=== PATIENT | male | born 1960 | race Caucasian/White ===

== ENCOUNTER 2019-07-17 16:03 | Inpatient (IN) | payer OTHER ==
[~2019-07-17] VITALS: Ht 172.7 cm; Wt 90.5 kg
[2019-07-17 16:26] LABS: BASOPHILS 0.1 % (0-2); EOSINOPHILS 0 % (0-7); HEMATOCRIT 48.5 % (42.0-54.0); HEMOGLOBIN 16.2 g/dL (13.5-17.5); IMMATURE GRANULOCYTES 0.3 % (0-5); LYMPHOCYTES 3.1 % (15-50); MCH 27.9 pg (26.0-34.0); MCHC 33.4 g/dL (31.0-37.0); MCV 83.5 fL (80.0-100.0); MEAN PLATELET VOLUME 8.1 fL (7.4-10.4); MONOCYTES 2.5 % (2-11); PLATELET COUNT 228 10x3/uL (130-400); RBC 5.81 10x6/uL (4.20-6.10); RDW 13.9 % (11.5-14.5); WBC 13.9 10x3/uL (4.8-10.8)
[2019-07-17 16:34] LABS: CALC OSMOLALITY 271 mosm/kg (275-300); CARBON DIOXIDE 26.9 mmol/L (21.0-32.0); CHLORIDE - SERUM 99 mmol/L (98-107); CREATININE - SERUM 0.7 mg/dL (0.6-1.3); GLUCOSE 151 mg/dL (74-106); POTASSIUM - SERUM 4.1 mmol/L (3.5-5.1); SODIUM 134 mmol/L (136-145); UREA NITROGEN 15 mg/dL (7-18); eGFR NON AFRICAN AMERICAN > 90 mL/min (90-120)
[2019-07-17 16:40] LABS: INR 2.79 (0.85-1.17); PROTIME 28.9 SECONDS (11.6-15.0)
[2019-07-17 16:49] LABS: ALBUMIN 3.4 g/dL (3.4-5.0); ALKALINE PHOSPHATASE 76 U/L (30-120); ALT (SGPT) 161 U/L (10-68); AMYLASE - SERUM 53 U/L (25-115); BILIRUBIN - TOTAL 0.49 mg/dL (0.2-1.3); CREATINE KINASE 53 UL (21-232); LIPASE 220 U/L (73-393); PROTEIN - SERUM 7.5 g/dL (6.4-8.2)
[2019-07-17 16:50] LABS: TROPONIN-I < 0.017 ng/mL (0.000-0.060)
[2019-07-17 17:37] LABS: BILIRUBIN NEGATIVE (NEGATIVE); GLUCOSE NEGATIVE (NEGATIVE); KETONE NEGATIVE (NEGATIVE); NITRITE NEGATIVE (NEGATIVE); UROBILINOGEN NORMAL (NORMAL)
[2019-07-17 17:45] LABS: UDS - AMPHET NEGATIVE QUAL (NEGATIVE); UDS - BARB NEGATIVE QUAL (NEGATIVE); UDS - BENZO NEGATIVE QUAL (NEGATIVE); UDS - COCAINE NEGATIVE QUAL (NEGATIVE); UDS - OPIATE POSITIVE QUAL (NEGATIVE); UDS - PCP NEGATIVE QUAL (NEGATIVE); UDS - THC NEGATIVE QUAL (NEGATIVE)
--- NOTE | 2019-07-17 19:10 | NUR ---
PT AMBULATED TO RESTROOM, NO S/S OF ACUTE DISTRESS NOTED.
[2019-07-17 21:49] VITALS: BP 196/100; BMI 26.6
--- NOTE | 2019-07-17 21:58 | NUR ---
PT ARRIVED ON UNIT VIA WHEELCHAIR ESCORTED BY ER NURSE. POSITIONED IN BED FOR COMFORT AND ORIENTED TO ROOM AND CALL LIGHT. STARTED IV FLUIDS PER ORDER. GAVE MORPHINE 4 MG IVP AND ZOFRAN 4 MG IVP FOR C/O PAIN AND NAUSEA. GAVE ICE WATER AND CRANAPPLE JUICE. WILL MONITOR FOR NEEDS.
[2019-07-17 21:59] VITALS: BP 196/100
--- NOTE | 2019-07-17 21:59 | NUR ---
ADMISSION ASSESSMENT AND HISTORY COMPLETE. PT TAKES NO HOME MEDICATIONS.
[2019-07-18] VITALS (19 sets, daily range): BP systolic 98–198; BP diastolic 54–110; Ht 172.7 cm; Wt 90.5 kg
--- NOTE | 2019-07-18 01:19 | NUR ---
GAVE MORPHINE AND ZOFRAN IVP PER PT REQUEST FOR PAIN / NAUSEA, PER PRN ORDER.
--- NOTE | 2019-07-18 04:16 | NUR ---
PT YELLING AND MOANING LOUDLY...C/O SEVERE ABDOMINAL PAIN. GAVE MORPHINE EARLY TO TRY TO GET PT TO SETTLE DOWN AND KEEP FROM WAKING THE WHOLE UNIT WITH HIS YELLING. WILL MONITOR FOR EFFECTIVENESS.
[2019-07-18 06:10] LABS: BASOPHILS 0.1 % (0-2); EOSINOPHILS 0.3 % (0-7); HEMATOCRIT 49.7 % (42.0-54.0); HEMOGLOBIN 16.6 g/dL (13.5-17.5); IMMATURE GRANULOCYTES 0.3 % (0-5); LYMPHOCYTES 5.7 % (15-50); MCH 27.9 pg (26.0-34.0); MCHC 33.4 g/dL (31.0-37.0); MCV 83.4 fL (80.0-100.0); MEAN PLATELET VOLUME 8.4 fL (7.4-10.4); MONOCYTES 6.1 % (2-11); NEUTROPHILS 87.5 % (40-80); RBC 5.96 10x6/uL (4.20-6.10); RDW 13.9 % (11.5-14.5)
[2019-07-18 06:21] LABS: ALBUMIN 3.5 g/dL (3.4-5.0); ALKALINE PHOSPHATASE 81 U/L (30-120); ALT (SGPT) 146 U/L (10-68); AMYLASE - SERUM 62 U/L (25-115); BILIRUBIN - TOTAL 0.79 mg/dL (0.2-1.3); CALC OSMOLALITY 268 mosm/kg (275-300); CALCIUM 8.9 mg/dL (8.5-10.1); CARBON DIOXIDE 25.3 mmol/L (21.0-32.0); CHLORIDE - SERUM 97 mmol/L (98-107); CREATININE - SERUM 0.7 mg/dL (0.6-1.3); GLUCOSE 133 mg/dL (74-106); LIPASE 217 U/L (73-393); PROTEIN - SERUM 7.4 g/dL (6.4-8.2); SODIUM 133 mmol/L (136-145); UREA NITROGEN 14 mg/dL (7-18); eGFR NON AFRICAN AMERICAN > 90 mL/min (90-120)
[2019-07-18 06:35] LABS: PLATELET COUNT 278 10x3/uL (130-400)
--- NOTE | 2019-07-18 06:36 | NUR ---
PT JUST VOMITED ALL OVER HIS BATHROOM...FLOOR, TOILET AND WHITE...AT LEAST 500 ML OF BROWNISH EMESIS.
--- NOTE | 2019-07-18 11:43 | NUR ---
ASSESSMENT PER FLOW SHEET. PATIENT IS GOING TO OR FOR PROCEDURE,NPO. MEDS ORDERED.
--- NOTE | 2019-07-18 11:52 | NUR ---
CALL TO MOM PAULIE REBOLLAR,PHONE NUMBER [phone]. NO ANSWER. MESSAGE LEFT FOR HER TO CALL MED SURG UNIT.
--- NOTE | 2019-07-18 11:54 | NUR ---
LEFT UNIT VIA BED TO OR.
[2019-07-18 11:57] LABS: BACTERIA FEW /hpf (NEGATIVE); BILIRUBIN NEGATIVE (NEGATIVE); EPITHELIAL CELLS 0-5 /hpf (0-5); GLUCOSE NEGATIVE (NEGATIVE); KETONE SMALL mg/dL (NEGATIVE); NITRITE NEGATIVE (NEGATIVE); RED CELLS - URINE 0-5 /hpf (0-5); SPECIFIC GRAVITY 1.015 (1.005-1.020); UROBILINOGEN 8 mg/dL (NORMAL); WHITE CELLS - URINE RARE /hpf (NEGATIVE)
--- NOTE | 2019-07-18 14:35 | NUR ---
CALL BACK FROM MOM,SHE WANTS UPDATE AFTER SURGERY.INFORMED HER NUMBER ON FRONT OF CHART FOR PATIENT STATUS UPDATE
--- NOTE | 2019-07-18 18:41 | NUR ---
1531 RECEIVED FROM PACU WITH RENAN RN TO ROOM 2308 INITIATED POST OP FREQUENT VS
--- NOTE | 2019-07-18 19:30 | NUR ---
PT VOICES NEEDS, LUNGS CLEAR, LEFT IJ INTACT WITH NS @ 50 CC/HR, RIGHT WRIST A-LINE INTACT, ABDOMINAL INCISIONS X5 WITH KARSTEN DRAINS X2, KELLEY PATENT TO BSD, SCD'S TO BILAT LOWER LEGS, NO DISTRESS NOTED
--- NOTE | 2019-07-18 21:00 | NUR ---
PT RESTING QUIETLY WITH EYES CLOSED, VITALS STABLE
--- NOTE | 2019-07-18 23:35 | NUR ---
PT AWAKE EATING POPSICLE, NO DISTRESS, WILL CONT TO MONITOR
[2019-07-19] VITALS (23 sets, daily range): BP systolic 99–143; BP diastolic 55–85
--- NOTE | 2019-07-19 01:30 | NUR ---
PT REQUESTING WATER, GIVEN ICE CHIPS, INSTRUCTED TO GO SLOW WITH ICE CHIPS, VITALS STABLE
--- NOTE | 2019-07-19 03:30 | NUR ---
PT BATHED PER STAFF, TOLERATED WELL
[2019-07-19 04:25] LABS: BASOPHILS 0.1 % (0-2); EOSINOPHILS 0 % (0-7); HEMATOCRIT 48.2 % (42.0-54.0); HEMOGLOBIN 15.9 g/dL (13.5-17.5); IMMATURE GRANULOCYTES 0.1 % (0-5); LYMPHOCYTES 3.1 % (15-50); MCH 27.7 pg (26.0-34.0); MCV 84.1 fL (80.0-100.0); MEAN PLATELET VOLUME 8.7 fL (7.4-10.4); MONOCYTES 6.9 % (2-11); NEUTROPHILS 89.8 % (40-80); PLATELET COUNT 225 10x3/uL (130-400); RBC 5.73 10x6/uL (4.20-6.10); RDW 14.2 % (11.5-14.5)
[2019-07-19 04:43] LABS: ALKALINE PHOSPHATASE 47 U/L (30-120); BILIRUBIN - TOTAL 3.47 mg/dL (0.2-1.3); CALCIUM 7.6 mg/dL (8.5-10.1); CARBON DIOXIDE 24.5 mmol/L (21.0-32.0); CHLORIDE - SERUM 104 mmol/L (98-107); CREATININE - SERUM 0.8 mg/dL (0.6-1.3); GLUCOSE 121 mg/dL (74-106); POTASSIUM - SERUM 4.2 mmol/L (3.5-5.1); PROTEIN - SERUM 5.9 g/dL (6.4-8.2); SODIUM 136 mmol/L (136-145); eGFR NON AFRICAN AMERICAN > 90 mL/min (90-120)
[2019-07-19 04:45] LABS: ALBUMIN 2.4 g/dL (3.4-5.0); ALT (SGPT) 84 U/L (10-68); CALC OSMOLALITY 276 mosm/kg (275-300); UREA NITROGEN 24 mg/dL (7-18)
[2019-07-19 04:48] LABS: WBC 11.2 10x3/uL (4.8-10.8)
--- NOTE | 2019-07-19 07:54 | OP ---
PATIENT NAME: RUBEN REBOLLAR MEDICAL RECORD: [id number] :64 LOCATION:.[facility] D.2308 ADMISSION DATE:07/17/19 SURGEON: DEQUAN PAGAN MD DATE OF OPERATION: 07/18/2019 SURGEON: Dequan Pagan MD PREOPERATIVE DIAGNOSES: 1. Incarcerated ventral hernia. 2. 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 3. Hepatitis C. 4. History of alcoholism. POSTOPERATIVE DIAGNOSES: 1. Strangulated incarcerated ventral hernia. 2. Cirrhosis. 3. Hepatitis C. 4. History of alcoholism. 5. 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 ANESTHESIA: General. COMPLICATIONS: None. SPECIMENS: Small bowel resection. Case was grossly contaminated. ESTIMATED BLOOD LOSS: 50 cc. OPERATIVE COURSE: After consent was obtained, the patient was taken to the operating room and placed in supine position on the operating table. Next, general anesthesia was given via endotracheal intubation after a timeout was performed to confirm the correct patient and procedure. The abdomen was prepped and draped in typical sterile fashion. Ioban dressing was placed. Local anesthetic was injected in the left upper quadrant at Diaz's point. A 5-mm bladeless optical trocar was used and the abdomen entered under direct laparoscopic vision. Adequate pneumoperitoneum was achieved. No evidence of bowel injury. No evidence of bleeding. At this time, 3 additional trocars were placed, 12-mm trocar in to the left lateral position, 5-mm trocar in the left lower quadrant and 5-mm trocar in the upper midline. All instruments were placed under direct laparoscopic vision. There was a loop of incarcerated small bowel in the ventral hernia defect. A light gentle traction was reduced to reduce the hernia. Once the hernia was reduced, there was noted immediately was small bowel succuss noted from the mesenteric border of the small bowel loop, which was incarcerated in the hernia with signs of strangulated small bowel noted at the edges of the hernia. At this time, we decided to perform a laparoscopic small bowel resection. Enterotomies were made in the healthy portion of proximal and distal small bowel. A gmie-fz-hupk anastomosis was used with a 60 mm NEENA stapler using green load staple. The common enterotomy was then closed using a second fire of the 60 mm green load stapler after mesenteric window was created closing the common enterotomy. The mesentery was then taken with a single firing of the white load stapler. The 6 cm antrectomy specimen was placed in an EndoCatch bag and removed the 12-mm trocar and sent for permanent pathology. The mesenteric defect was closed using 3-0 Vicryl suture in a simple interrupted fashion. The staple line was reinforced using interrupted 3-0 Vicryl suture. At this time, the abdomen prior to reduction of OPERATIVE REPORT [id number] KETURAH,RUBEN the hernia 1500 cc of ascites were suctioned from the abdomen. After the small bowel resection was completed, the abdomen was copiously irrigated using 3 liters of warm normal saline. The ventral hernia defect was closed using three #1 Prolene sutures in a transfascial fashion using the Uzair-Travis suture passer, 2 KARSTEN drains were placed into the abdomen, one in the right pericolic gutter and one into the pelvis. The 12-mm trocar was removed and closed with an 0 Vicryl suture and a Uzair-Travis suture passer. At this time, again, the abdomen was copiously inspected. No evidence of bowel injury. No evidence of bleeding. At this time, all remaining instruments removed. The abdomen was desufflated. Remaining trocars were removed. Skin was closed with 4-0 Monocryl. KARSTEN drain secured using 2-0 nylon suture. At the end of the case, all needle and instrument counts were correct. No complications occurred. The patient was extubated and transferred to PACU in stable condition. TRANSINT:[id number] Voice Confirmation ID: [id number] DOCUMENT ID: [id number] DEQUAN PAGAN MD at 0754 CC: [id number] DICTATION DATE: 07/18/19 1445 WINDOWS TECHNICAL SPECIALIST: 07/18/19 213 ADM IN [facility] [address] [place] [address]
--- NOTE | 2019-07-19 18:54 | NUR ---
0700 BEDSIDE REPORT FROM OUTGOING INSECT CONTROL AIDE COMPLETE ASSISTED TO RECLINER CHAIR
--- NOTE | 2019-07-19 19:01 | NUR ---
0900 DR PAGAN ROUNDING ON PATIENT AND STRIPPING KARSTEN X 2 PT REMAINS UP IN RECLINER CHAIR VOICES NO COMPLAINT AT PRESENT
--- NOTE | 2019-07-19 19:02 | NUR ---
1300 PT PRESENT AND AMBULATED PATIENT IN ICU HALLS TOLERATED WELL
--- NOTE | 2019-07-19 19:03 | NUR ---
1144 C/O PAIN MORPHINE 4MG IV GIVEN
--- NOTE | 2019-07-19 19:04 | NUR ---
1500 AWAKE IN BED WATCHING TV
--- NOTE | 2019-07-19 19:04 | NUR ---
1542 C/O PAIN 11/09 MORPHINE 4MG IV GIVEN
--- NOTE | 2019-07-19 19:05 | NUR ---
1700 REQUESTED POPCICLE GIVEN ENRIQUE WELL DENIES NAUSEA
--- NOTE | 2019-07-19 19:07 | NUR ---
1900 BEDSIDE REPORT GIVEN TO ANNA PARK
--- NOTE | 2019-07-19 19:30 | NUR ---
PT RESTING QUIETLY, LEFT IJ CVL INTACT WITH NS @ 50 CC/HR, KELLEY CATHETER D/C'D, PT TOLERATED WELL, KARSTEN DRAINS X2 TO ABDOMEN INTACT AND COMPRESSED, VITALS STABLE
--- NOTE | 2019-07-19 22:00 | NUR ---
PT RESTING QUIETLY WITH EYES CLOSED, URINAL IN REACH
[2019-07-20] VITALS (9 sets, daily range): BP systolic 106–134; BP diastolic 63–75
--- NOTE | 2019-07-20 | NUR ---
PT SPILLED URINAL AND INCONTINENT OF URINE, BATHED AND LINEN CHANGED, PT STOOD AT BEDSIDE WITH MINIMAL ASSIST
--- NOTE | 2019-07-20 02:00 | NUR ---
PT SLEEPING WITH NO DISTRESS, VITALS STABLE
--- NOTE | 2019-07-20 04:00 | NUR ---
PT SLEEPING WITH NO DISTRESS, VITALS STABLE, KARSTEN DRAINS EMPTIED
[2019-07-20 04:23] LABS: BASOPHILS 0.1 % (0-2); EOSINOPHILS 0.1 % (0-7); HEMATOCRIT 43.1 % (42.0-54.0); HEMOGLOBIN 14.4 g/dL (13.5-17.5); IMMATURE GRANULOCYTES 0.4 % (0-5); LYMPHOCYTES 3.5 % (15-50); MCHC 33.4 g/dL (31.0-37.0); MCV 83.9 fL (80.0-100.0); MEAN PLATELET VOLUME 8.7 fL (7.4-10.4); MONOCYTES 8.9 % (2-11); PLATELET COUNT 214 10x3/uL (130-400); RBC 5.14 10x6/uL (4.20-6.10); RDW 14.4 % (11.5-14.5)
[2019-07-20 04:39] LABS: APTT 28.8 SECONDS (22.8-39.4); INR 1.05 (0.85-1.17); PROTIME 13.6 SECONDS (11.6-15.0)
[2019-07-20 04:44] LABS: WBC 8.1 10x3/uL (4.8-10.8)
[2019-07-20 05:31] LABS: ALBUMIN 2.1 g/dL (3.4-5.0); ALKALINE PHOSPHATASE 40 U/L (30-120); ALT (SGPT) 59 U/L (10-68); BILIRUBIN - TOTAL 1.87 mg/dL (0.2-1.3); CALC OSMOLALITY 270 mosm/kg (275-300); CARBON DIOXIDE 22.2 mmol/L (21.0-32.0); CHLORIDE - SERUM 101 mmol/L (98-107); CREATININE - SERUM 0.7 mg/dL (0.6-1.3); GLUCOSE 122 mg/dL (74-106); POTASSIUM - SERUM 3.8 mmol/L (3.5-5.1); SODIUM 131 mmol/L (136-145); UREA NITROGEN 31 mg/dL (7-18); eGFR NON AFRICAN AMERICAN > 90 mL/min (90-120)
--- NOTE | 2019-07-20 07:00 | NUR ---
REPORT RECEIVED. ASSESSMENT COMPLETE PER FLOW SHEET. VSS. PT RESTING COMFORTABLY WILL CONTINUE TO MONITOR
--- NOTE | 2019-07-20 07:58 | NUR ---
Nutrition follow-up: Pt continues NPO s/p small bowel resection, hernia repair. Pt with peritonitis from bowel perforation. Sitting in chair and tolerating clear liquids at this time. Waiting for bowel function to return. RDN following.
--- NOTE | 2019-07-20 10:19 | NUR ---
RECEIVED PT FROM ICU, PT IS SITTING UP IN CHAIR AT BEDSIDE, ABD HAS 3 LAPSITES AND A KARSTEN DRAIN. LAP SITES ON LEFT SIDE AND NAVEL AREA DRAINING, ICU NURSE SRIDEVI CHANGED DRESSING BEFORE LEAVING, WILL CONTINUE TO MONITOR
--- NOTE | 2019-07-20 11:42 | NUR ---
I have reviewed this patient and I concur with the Shift Assessment completed by the Licensed Practical Nurse today this shift.
--- NOTE | 2019-07-20 13:23 | NUR ---
PT SITTING UP IN CHAIR AT BEDSIDE WANTED TO GO BACT TO BED, PAIN IS AT AN 8, ADMINISTERED PRN PAIN MEDICATION AND ASSIST PT BACK TO BED, CL IN REACH, GAVE PT URINAL NO OTHER NEEDS VOICED, CONTINUE WITH PLAN OF CARE
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
--- NOTE | 2019-07-20 19:09 | MORECARE ---
CASE MANAGEMENT DISCHARGE SUMMARY PATIENT: RUBEN REBOLLAR UNIT: [id number] ADM DATE: 07/17/19 AGE: 58 : 64 SEX: M ROOM/BED: D.2225 AUTHOR: DANYDOC PHYSICIAN: REFERRING PHYSICIAN: ANTONY ABURTO DO DATE OF SERVICE: 07/20/19 Discharge Plan Patient Name: RUBEN REBOLLAR Facility: [facility]:[place] : 1960 Planned Disposition: Home Anticipated Discharge Date: Discharge Date: Expected LOS: Initial Reviewer: [email or web address] Initial Review Date: 07/20/2019 Generated: 07/20/19 8:08 pm Comments DCP- Discharge Planning Updated by [email or web address]: Zeina Kapoor on 07/20/19 6:[address] Patient Name: RUBEN REBOLLAR Admission Status: ER Accout number: [id number] Admission Date: 07-17-2019 : 1960 Admission Diagnosis:VENTRAL HERNIA WITHOUT OBSTRUCTION OR GANGRENE Attending: ANTONY ABURTO Current LOS: 3 Anticipated DC Date: Planned Disposition: Home Primary Insurance: [employer]ICA[employer] Discharge Planning Comments: CM met with patient at bedside after explaining CM role and obtaining verbal consent. Patient lives at home alone where he is independent with his care and plans to return there upon discharge. Patient states he lives in a camper in his mother's yard. Patient feels this would be a safe discharge. CM discussed availability / needs of home health and medical equipment. Patient denies any discharge needs at this time. Patient states he will have his family drive him home upon discharge. CM will continue to follow and assist as needed with discharge planning / needs. Power Checker: Zeina Kapoor DCPIA - Discharge Planning Initial Assessment Updated by [email or web address]: Zeina Kapoor on 07/20/19 7:07 pm * Is the patient Alert and Oriented? Yes * How many steps to enter\exit or inside your home? * PCP [facility] * [facility] * Preadmission Environment Home Alone * ADLs Independent * Equipment Walker * List name and contact numbers for known caregivers / representatives who currently or will assist patient after discharge: PAULIE REBOLLAR - [facility] - [phone] * Verbal permission to speak to the caregivers and representatives has been obtained from the patient. Yes * Community resources currently utilized None * Additional services required to return to the preadmission environment? No * Can the patient safely return to the preadmission environment? Yes * Has this patient been hospitalized within the prior 30 days at any hospital? No Patient Name: RUBEN REBOLLAR Page [phone] at 1909 All edits/amendments must be made on the electronic document DICTATION DATE: 07/20/191907 REHABILITATION SERVICES MANAGER: ARMANDO 07/20/191907 RPT#: [id number] DC DATE: STATUS: ADM IN [facility] [address] [place] [address] END OF REPORT
[2019-07-21] VITALS: BP 123/63
--- NOTE | 2019-07-21 02:26 | NUR ---
PT RESTING IN BED. EYES CLOSED. NO SIGNS OF DISTRESS. BREATHING EVEN AND UNLABORED. IV SITE LT IJ DRESSING CLEAN DRY AND INTACT. NO SIGNS OF INFECTION. ABD DISTENDED LAP SITES ABD CLEAN DRY AND INTACT. KARSTEN DRAIN RT ABD. WILL CONTINUE PLAN OF CARE. CALL LIGHT IN REACH. BED LOWERED AND LOCKED. BED RAILS UPX2.
--- NOTE | 2019-07-21 02:56 | NUR ---
I have reviewed this patient and I concur with the Shift Assessment completed by the Licensed Practical Nurse today this shift.
[2019-07-21 04:00] VITALS: BP 147/77
[2019-07-21 05:38] LABS: BASOPHILS 0.1 % (0-2); EOSINOPHILS 0.1 % (0-7); HEMATOCRIT 38.3 % (42.0-54.0); HEMOGLOBIN 12.8 g/dL (13.5-17.5); IMMATURE GRANULOCYTES 0.4 % (0-5); LYMPHOCYTES 3.1 % (15-50); MCH 27.8 pg (26.0-34.0); MCHC 33.4 g/dL (31.0-37.0); MCV 83.3 fL (80.0-100.0); MONOCYTES 7.1 % (2-11); NEUTROPHILS 89.2 % (40-80); PLATELET COUNT 210 10x3/uL (130-400); RDW 14.3 % (11.5-14.5); WBC 8.9 10x3/uL (4.8-10.8)
[2019-07-21 06:02] LABS: APTT 26.2 SECONDS (22.8-39.4); INR 0.98 (0.85-1.17); PROTIME 12.9 SECONDS (11.6-15.0)
[2019-07-21 06:23] LABS: ALBUMIN 1.6 g/dL (3.4-5.0); ALKALINE PHOSPHATASE 42 U/L (30-120); CALC OSMOLALITY 270 mosm/kg (275-300); CALCIUM 7.6 mg/dL (8.5-10.1); CARBON DIOXIDE 23.1 mmol/L (21.0-32.0); CHLORIDE - SERUM 102 mmol/L (98-107); CREATININE - SERUM 0.7 mg/dL (0.6-1.3); GLUCOSE 106 mg/dL (74-106); POTASSIUM - SERUM 3.7 mmol/L (3.5-5.1); PROTEIN - SERUM 5.2 g/dL (6.4-8.2); SODIUM 133 mmol/L (136-145); UREA NITROGEN 27 mg/dL (7-18); eGFR NON AFRICAN AMERICAN > 90 mL/min (90-120)
[2019-07-21 06:27] LABS: ALT (SGPT) 36 U/L (10-68)
--- NOTE | 2019-07-21 07:41 | NUR ---
PT LYING ON BACK IN BED, ELECTROMECHANICAL EQUIPMENT TESTER AT BEDSIDE, PT STATES PAIN IS AT A 6 BUT BEARABLE, PT REPORTED GETTING UP AND WALKING WITH PT AND WALKING AROUND ROOM SEVERAL TIMES, DRESSING TO LEFT SIDE SOAKED WILL CHANGE THIS MORNING. IV TO LEFT IJ INTACT, DRESSING CHANGED 07/18. NO S/SX OF DISTRESS, CL IN REACH CONTINUE WITH PLAN OF CARE
[2019-07-21 09:00] VITALS: BP 113/62
--- NOTE | 2019-07-21 09:53 | NUR ---
PATIENT UP WALKING WITH PT, NOTICED FRONT F GOWN WAS WET WHEN PATIENT RETURNED, PT IS SITTING UP IN CHAIR AT BEDSIDE, APPLIED DRESSING TO KARSTEN DRAIN SITE SITE IS LEAKING, COMPLETE LINEN CHANGE. PT STATED HE IS HUNGRY, GAVE PT 2 PUDDINGS PT IS NOW ON FL DIET. EMPTIED KARSTEN DRAIN TWICE THIS MORNING RECORDED OUTPUT ON I&O SHEET. NO OTHER NEEDS VOICED AT THIS TIME, CL IN REACH CONTINUE WITH PLAN OF CARE
--- NOTE | 2019-07-21 13:00 | NUR ---
PT REQUSTED PAIN MEDICATON, STATED PAIN IS AT A 7 AND MOANING. ADMINISTERD PO PAIN MEDICATION AND EXPLAINED TO PT THAT PO SEEMS TO WORK BETTER THAN IV AND PT VERBALIZED UNDERSTANDING, NO OTHER NEEDS VOICED, CL IN REACH CONTINUE WITH PLAN OF CARE
--- NOTE | 2019-07-21 13:02 | NUR ---
I have reviewed this patient and I concur with the Shift Assessment completed by the Licensed Practical Nurse today this shift.
[2019-07-21 13:20] VITALS: BP 150/78
--- NOTE | 2019-07-21 13:25 | NUR ---
PT REQUESTED TO SIT UP IN CHAIR AT BEDSIDE, STATED THAT HIS BACK WAS BOTHERING HIM, ASSISTED PT UP TO CHAIR, PT WAS ABLE TO TOLERATE WELL, PLACED CL I N REACH NO OTHER NEEDS VOICED, CONTINUE WITH PLAN OF CARE
--- NOTE | 2019-07-21 15:07 | NUR ---
Pt has old scars on both shins. Some areas have scabs. No redness, edema, drainage. Wound care will monitor if needed.
[2019-07-21 16:00] VITALS: BP 131/72
[2019-07-21 20:00] VITALS: BP 142/81
[2019-07-22 04:00] VITALS: BP 111/70
--- NOTE | 2019-07-22 04:17 | NUR ---
PT RESTING IN BED. EYES CLOSED. NO SIGNS OF DISTRESS. BREATHING EVEN AND UNLABORED. IV SITE LT IJ DRESSING CLEAN DRY AND INTACT. NO SIGNS OF INFECTION. LUNG SOUNDS CLEAR. BOWEL SOUNDS HYPOACTIVEX4. ABD DISTENDED AND TENDER TO PALPATION. LAP SITES ABD CLEAN DRY AND INTACT. KARSTEN DRAINAGE YELLOW IN COLOR. WILL CONTINUE PLAN OF CARE. CALL LIGHT IN REACH. BED LOWERED AND LOCKED. BED RAILS UPX2.
--- NOTE | 2019-07-22 04:22 | NUR ---
I have reviewed this patient and I concur with the Shift Assessment completed by the Licensed Practical Nurse today this shift.
[2019-07-22 05:18] LABS: BASOPHILS 0.1 % (0-2); EOSINOPHILS 0.3 % (0-7); HEMATOCRIT 39.5 % (42.0-54.0); HEMOGLOBIN 13.1 g/dL (13.5-17.5); LYMPHOCYTES 5.8 % (15-50); MCH 27.4 pg (26.0-34.0); MCHC 33.2 g/dL (31.0-37.0); MCV 82.6 fL (80.0-100.0); MEAN PLATELET VOLUME 8.3 fL (7.4-10.4); MONOCYTES 5.4 % (2-11); NEUTROPHILS 87.4 % (40-80); RBC 4.78 10x6/uL (4.20-6.10); RDW 14.1 % (11.5-14.5)
[2019-07-22 05:22] LABS: PLATELET COUNT 277 10x3/uL (130-400); WBC 11.6 10x3/uL (4.8-10.8)
[2019-07-22 05:39] LABS: ALBUMIN 1.7 g/dL (3.4-5.0); ALKALINE PHOSPHATASE 50 U/L (30-120); ALT (SGPT) 38 U/L (10-68); BILIRUBIN - TOTAL 1.04 mg/dL (0.2-1.3); CALC OSMOLALITY 266 mosm/kg (275-300); CALCIUM 7.7 mg/dL (8.5-10.1); CARBON DIOXIDE 24.7 mmol/L (21.0-32.0); CHLORIDE - SERUM 101 mmol/L (98-107); CREATININE - SERUM 0.8 mg/dL (0.6-1.3); GLUCOSE 88 mg/dL (74-106); POTASSIUM - SERUM 3.7 mmol/L (3.5-5.1); PROTEIN - SERUM 5.5 g/dL (6.4-8.2); SODIUM 132 mmol/L (136-145); eGFR NON AFRICAN AMERICAN > 90 mL/min (90-120)
[2019-07-22 05:49] LABS: UREA NITROGEN 20 mg/dL (7-18)
--- NOTE | 2019-07-22 07:50 | NUR ---
ALERT AND ORIENTED X4. ABDOMEN DISTENDED WITH BOWEL SOUNDS HYPOACTIVE AND ENCOURAGED TO AMBULATE TO INCREASE PERISTALASIS WITH PATINET VEBALIZING UNDRSTANDING. STATES IS "PASSING GAS".PATIENT STATES HAS CHRONIC HICCUPS AND BELCHES.KARSTEN DRAIN WITH ABDOMINAL DRESSING INTACT WITH YELLOW SEROUS DRAINAGE NTOED. IV TO LEFT IJ INFUSING AT PRECIBD RATE. ENCOURAGED TO USE CALL LIGHT FOR ASSSIT
[2019-07-22 08:00] VITALS: BP 142/77
[2019-07-22 12:00] VITALS: BP 139/78
--- NOTE | 2019-07-22 13:02 | NUR ---
Nutrition follow-up: Diet: Full liquids and to advance per surgeon Labs reviewed Wt: 190# RDN following.
[2019-07-22 16:00] VITALS: BP 130/69
[2019-07-22 20:00] VITALS: BP 145/82
[2019-07-23] VITALS (10 sets, daily range): BP systolic 125–162; BP diastolic 71–98
[2019-07-23 06:22] LABS: BASOPHILS 0.4 % (0-2); EOSINOPHILS 0.3 % (0-7); HEMATOCRIT 39.8 % (42.0-54.0); HEMOGLOBIN 13.5 g/dL (13.5-17.5); IMMATURE GRANULOCYTES 1.2 % (0-5); LYMPHOCYTES 6.8 % (15-50); MCH 27.6 pg (26.0-34.0); MCHC 33.9 g/dL (31.0-37.0); MCV 81.4 fL (80.0-100.0); MEAN PLATELET VOLUME 8.3 fL (7.4-10.4); MONOCYTES 5.6 % (2-11); NEUTROPHILS 85.7 % (40-80); PLATELET COUNT 311 10x3/uL (130-400); RBC 4.89 10x6/uL (4.20-6.10)
[2019-07-23 06:23] LABS: WBC 15.8 10x3/uL (4.8-10.8)
--- NOTE | 2019-07-23 06:39 | NUR ---
I have reviewed this patient and I concur with the Shift Assessment completed by the Licensed Practical Nurse today this shift.
[2019-07-23 06:51] LABS: ALBUMIN 1.6 g/dL (3.4-5.0); ALKALINE PHOSPHATASE 59 U/L (30-120); ALT (SGPT) 34 U/L (10-68); BILIRUBIN - TOTAL 1.16 mg/dL (0.2-1.3); CALC OSMOLALITY 259 mosm/kg (275-300); CALCIUM 7.7 mg/dL (8.5-10.1); CARBON DIOXIDE 22.2 mmol/L (21.0-32.0); CHLORIDE - SERUM 98 mmol/L (98-107); CREATININE - SERUM 0.8 mg/dL (0.6-1.3); GLUCOSE 83 mg/dL (74-106); POTASSIUM - SERUM 3.9 mmol/L (3.5-5.1); PROTEIN - SERUM 5.3 g/dL (6.4-8.2); SODIUM 129 mmol/L (136-145); UREA NITROGEN 18 mg/dL (7-18); eGFR NON AFRICAN AMERICAN > 90 mL/min (90-120)
--- NOTE | 2019-07-23 08:00 | NUR ---
ALERT AND OREITNED SITTING UP IN CHAIR. DRESSING CHANGED TO ABDOMEN WITH SEROUS DRAINAGE NOTED. ABDOMEN DISTENDED WITH BOWLE SOUNDS HYPOACTIVE. CONTINUES TO HAVE EPISODES OF DIARRHEA DARK IN COLOR. DENEIS ANY PAIN OR DISCOMFORT AT THIS TIME. IVF INFUSING TO LEFT EXTERNA JUGULAR WITH NO S/S OF INFECTION NOTED. LUNGS CTA AND HRRR. ENCOURAGED TO USE CALL LIGHT FOR ASSSIT.
--- NOTE | 2019-07-23 15:00 | NUR ---
rehab prescreen: thank you for this eval, this pt hasnt had therapy in 2 days and walked 250ft with min assist then, so he is too high function for irf. he also has [employer] insurance and will required a authorzation before able to approve. will monitor if any more need arise. thank you for this eval. seb paul lpn clinical liasion
--- NOTE | 2019-07-23 16:25 | NUR ---
PATIENT PULLED OUT EXTERNAL JUGULAR CATHETER WITH SUTURES REMOVED WITH DRESSING APPLIED. IV STARTED WITH 22G TO LEFT FOREARM X1 STICK.
--- NOTE | 2019-07-23 17:43 | NUR ---
PATIENT STATES HE IS REFUSING TO EAT DUE TO MAKING HIM BELCH ALL THE TIME.
--- NOTE | 2019-07-23 19:45 | NUR ---
JOSE LUIS CALLED AND GAVE ORDERS TO TRANSFER PATIENT TO ICU. STATED THAT PATIENT HAS AN 80% MORTALITY RATE. SAID PATIENT WAS DOING BETTET, BUT IS NOW TAKING A TURN FOR THE WORST. 2 INCISIONS ON STOMACH DRAINING, INCISION WERE KARSTEN DRAIN WAS D/C'D DRAINING. PATIENT HAS NAUSEA AND VOMITING.
--- NOTE | 2019-07-23 20:00 | NUR ---
RECEIVED PT FROM FLOOR VIA BED WITH FLOOR NURSES ASSISTED TO ICU BED 230. PT ORIENTED TO PLACE BUT CONFUSED ABOUT SITUATION AND TIME. REORIENTED. PT RESP LABORED PLACED O2 ON 2LPM PER NC O2 JOE 97%. CM READING SR WITHOUT ECTOPY ALARMS ON AND AUDIBLE. COMPLETE BED BATH AND LINEN CHANGE MID ABD AND LEFT FLANK DRESSINGS FROM INCISIONS LEAKING COPIOUS SEROUS FLUID WITH ODOR CLEANSED WITH NS GAUZE AND COVERED WITH GAUZE ABD PADS SECURED WITH TAPE. KELLEY PLACED WITH IMMEDIATE RETURN OF ORANGE COLORED URINE. CL IN REACH BED LOW POSITION BED ALARM ON AND SIDE RAILS UP TIMES 3 WILL CONTINUE TO MONITOR
--- NOTE | 2019-07-23 20:25 | NUR ---
KELLEY CATHETER PLACED PER STERILE TECHNIQUE, PT TOLERATED WELL, VSS.
[2019-07-23 21:30] LABS: BASOPHILS 1.4 % (0-2); EOSINOPHILS 0.2 % (0-7); HEMATOCRIT 40.1 % (42.0-54.0); HEMOGLOBIN 13.9 g/dL (13.5-17.5); IMMATURE GRANULOCYTES 2.1 % (0-5); LYMPHOCYTES 9.3 % (15-50); MCH 28.1 pg (26.0-34.0); MCHC 34.7 g/dL (31.0-37.0); MCV 81.2 fL (80.0-100.0); MEAN PLATELET VOLUME 8.2 fL (7.4-10.4); PLATELET COUNT 299 10x3/uL (130-400); RBC 4.94 10x6/uL (4.20-6.10)
--- NOTE | 2019-07-23 21:30 | NUR ---
ANSWERED PTS CALL LIGHT HE IS REQUESTING A WHEEL CHAIR TO JUST COME AND GO FROM ROOM. INFORMED UNABLE TO JUST COME AND GO WITH COVID RULES AND THAT HE WAS IN ICU ORIENTED TO UNIT AND THAT HE WAS ON HEART MONITOR
[2019-07-23 21:32] LABS: WBC 19.9 10x3/uL (4.8-10.8)
[2019-07-23 21:43] LABS: ALBUMIN 1.5 g/dL (3.4-5.0); ALKALINE PHOSPHATASE 57 U/L (30-120); ALT (SGPT) 29 U/L (10-68); BILIRUBIN - TOTAL 1.06 mg/dL (0.2-1.3); CALC OSMOLALITY 260 mosm/kg (275-300); CALCIUM 7.7 mg/dL (8.5-10.1); CARBON DIOXIDE 21.6 mmol/L (21.0-32.0); CHLORIDE - SERUM 97 mmol/L (98-107); CREATININE - SERUM 0.9 mg/dL (0.6-1.3); GLUCOSE 98 mg/dL (74-106); PHOSPHOROUS 4.2 mg/dL (2.5-4.9); POTASSIUM - SERUM 4.2 mmol/L (3.5-5.1); PROTEIN - SERUM 5.3 g/dL (6.4-8.2); SODIUM 128 mmol/L (136-145); eGFR NON AFRICAN AMERICAN > 90 mL/min (90-120)
[2019-07-23 21:45] LABS: UREA NITROGEN 23 mg/dL (7-18)
[2019-07-24] VITALS (38 sets, daily range): BP systolic 83–144; BP diastolic 24–95
--- NOTE | 2019-07-24 00:15 | NUR ---
PT VOMITED COPIOUS AMOUNT OF YELLOW BILE ALL OVER ROOM PROJECTILE COMPLETE BED BATH AND LINEN CHANGE
--- NOTE | 2019-07-24 00:55 | NUR ---
PTS HEART RATE INCREASING O2 NOW 4 LPM NC AND VOMITING PAGED DR AMAYA UPDATED. INFORMED OF PT VOMITING AND POSSIBLE ASPIRATION WELL HEART RATE INCREASE AND DECLINE. NEW ORDERS NOTED
--- NOTE | 2019-07-24 04:00 | NUR ---
PT CONTINUES TO PULL AT KELLEY, IV AND TAKING O2 OFF WRIST RESTRAINTS APPLIED PER ORDERS
--- NOTE | 2019-07-24 04:45 | NUR ---
COMPLETE CHG AND COMPLETE LINEN CHANGE PT VOMITED
--- NOTE | 2019-07-24 05:16 | NUR ---
0510 PT PLACED ON [facility] 15LPM
--- NOTE | 2019-07-24 06:45 | NUR ---
PT REQUESTING HIS MOM CALLED. ATTEMPT TO CALL PAULIE AT [phone] [phone] UNSUCCESSFUL NO VOICEMAIL OR MACHINE
--- NOTE | 2019-07-24 06:59 | NUR ---
PAGED DR FOX TO INFORM OF CONSULT
--- NOTE | 2019-07-24 07:14 | NUR ---
INFORMED DAY SHIFT NURSE IN REPORT THAT PT WANTS MOTHER CALLED AND INFORMED OF HIS STATUS ATTEMPTS TIMES 2 UNSUCCESSFUL THUS FAR AND THAT CONSULT WAS PLACED FOR PULMONOLOGY DOMINIQUE BAKER HAS NOT CALLED BACK
--- NOTE | 2019-07-24 08:00 | NUR ---
RESP 40BPM. 15L HIGH FLOW AND SPO2 89%. ABG'S DONE AND CXR DONE AND PAGED DR FOX. INC HOB AND ENC PT TO COUGH. AWAITING CALL BACK FROM DR FOX.CALLED PTS MOTHER AND NO ANSWER. PT CONFUSED.
--- NOTE | 2019-07-24 09:36 | NUR ---
PTS MOTHER HERE. BRONCHOSCOPY CONCENTS SIGNED. DR FOX HERE AND HE IS TALKING TO PTS MOTHER.
--- NOTE | 2019-07-24 10:02 | NUR ---
0900- PT INTUBATED BY ER. 8.0 ETT, 24 LIP LINE. CXR COMPLETE. 1000- BRONCHOSCOPY COMPLETE BY DR FOX.
--- NOTE | 2019-07-24 12:57 | NUR ---
REPORTED BP 90/40. REC'D FL BOLUS AND ALBUMIN ORDER FROM DR GAMING
[2019-07-24 17:56] LABS: EOS BF 4 %; MACROPHAGES BF 8 %; NEUT - BF 65 %
--- NOTE | 2019-07-24 19:15 | NUR ---
pt sedated, ett patent to vent, ogt to liws, bilat swr in use, drsg intact to abdominal incisions, alonso petent to bsd, right groin cvl intact with ivf's infusing, right groin a-line in place, generalized edema noted, will cont to monitor
--- NOTE | 2019-07-24 21:00 | NUR ---
increased levophed gtt due to low b/p, pt remains sedated
--- NOTE | 2019-07-24 23:15 | NUR ---
pt remains sedated, vitals stable, no distress noted
[2019-07-25] VITALS (95 sets, daily range): BP systolic 75–126; BP diastolic 27–73
--- NOTE | 2019-07-25 01:00 | NUR ---
PT SEDATED WITH NO CHANGES NOTED, OGT OUTPUT DECREASED, WILL CONT TO MONITOR
--- NOTE | 2019-07-25 03:00 | NUR ---
PT BATHED PER STAFF, COMBATIVE WITH CARE, VITALS STABLE
[2019-07-25 04:23] LABS: HEMATOCRIT 34.5 % (42.0-54.0); HEMOGLOBIN 11.6 g/dL (13.5-17.5); MCH 27.8 pg (26.0-34.0); MCHC 33.6 g/dL (31.0-37.0); MCV 82.5 fL (80.0-100.0); MEAN PLATELET VOLUME 8.6 fL (7.4-10.4); PLATELET COUNT 349 10x3/uL (130-400); RBC 4.18 10x6/uL (4.20-6.10); RDW 14.5 % (11.5-14.5); WBC 47.8 10x3/uL (4.8-10.8)
[2019-07-25 04:29] LABS: ALBUMIN 1.3 g/dL (3.4-5.0); BILIRUBIN - TOTAL 1.04 mg/dL (0.2-1.3); CARBON DIOXIDE 19.3 mmol/L (21.0-32.0); MAGNESIUM - SERUM 2.4 mg/dL (1.8-2.4); PROTEIN - SERUM 4.7 g/dL (6.4-8.2)
[2019-07-25 04:30] LABS: ANION GAP 18.1 mmol/L (8-16); CREATININE - SERUM 3.4 mg/dL (0.6-1.3); PHOSPHOROUS 9.5 mg/dL (2.5-4.9); POTASSIUM - SERUM 5.4 mmol/L (3.5-5.1)
[2019-07-25 04:31] LABS: CALCIUM 6.6 mg/dL (8.5-10.1)
[2019-07-25 04:51] LABS: LYMPHOCYTES 4 % (15-50); MONOCYTES 2 % (2-11); NEUTROPHILS 44 % (40-80)
[2019-07-25 04:52] LABS: PLATELET ESTIMATE NORMAL; PLATELET MORPHOLOGY GIANT PLTS PRESENT
--- NOTE | 2019-07-25 07:38 | NUR ---
BP 80/40. LEVOPHED TITRATED UP TO SBP 90. DR AMAYA HERE ON ROUNDS. DR GAMING HERE ON ROUNDS.
--- NOTE | 2019-07-25 08:42 | NUR ---
SPOKE TO PTS MOTHER ON THE PHONE. SHE STATES NO CHEST COMPRESSIONS AND NO SHOCK. REPORTED TO DR GAMING AND DNR ORDER ON CHART.
--- NOTE | 2019-07-25 08:43 | NUR ---
Nutrition follow-up: Pt now in ICU; intubated, sedated; NPO Levophed of rlow BP NGT->LIWS Labs reviewed Will need nutrition support started if medically feasible within [address]. RDN following.
--- NOTE | 2019-07-25 10:00 | NUR ---
CONSULT CALLED TO DR PARR. REC'D ORDERS FOR LR BOLUS.
--- NOTE | 2019-07-25 10:25 | NUR ---
L ABD KARSTEN EXITE SITE LEAKING THIN YELLOW FLUID ON TO LINENS. BATH AND LINENS CHANGED. REPOSITIONED/TURNED.
--- NOTE | 2019-07-25 12:45 | NUR ---
DR GUZMAN AT BEDSIDE. UPDATE GIVEN. WILL CONTINUE TO MONITOR. NEW ORDERS RECEIVED.
--- NOTE | 2019-07-25 14:14 | NUR ---
DR EL IN ROOM. UPDATE GIVEN. ORDER RECEIVED TO INCREASE VASOPRESSIN TO 0.04 UNIT/HR
[2019-07-25 15:58] LABS: ALBUMIN 1.3 g/dL (3.4-5.0); ANION GAP 15.1 mmol/L (8-16); BILIRUBIN - TOTAL 0.93 mg/dL (0.2-1.3); CARBON DIOXIDE 21.9 mmol/L (21.0-32.0); CREATININE - SERUM 2.5 mg/dL (0.6-1.3); PROTEIN - SERUM 3.9 g/dL (6.4-8.2)
[2019-07-25 16:00] LABS: CALCIUM 5.8 mg/dL (8.5-10.1)
--- NOTE | 2019-07-25 16:20 | NUR ---
DR PAGAN IN ROOM. UPDATE GIVEN. NO NEW ORDERS WILL CONTINUE TO MONITOR
--- NOTE | 2019-07-25 16:26 | NUR ---
SPOKE WITH DR EL. STATED SHE WANTS TO REPLENISH CALCIUM. WILL CONTINUE TO MONITOR
--- NOTE | 2019-07-25 16:48 | NUR ---
PT MOTHER CALLED. UPDATE GIVEN.
--- NOTE | 2019-07-25 19:00 | NUR ---
SPOKE WITH DR GUZMAN REGARDING CORTISOL LAB. STATED TO GO AHEAD AND GIVE SOLU CORTEF.
--- NOTE | 2019-07-25 19:15 | NUR ---
PT SEDATED, ETT PATENT TO VENT, LUNGS CLEAR, ABDOMINAL INCISION WITH DRSG INTACT DRAINING ASCITES FLUID, RIGHT GROIN CVL INTACT WITH IVF'S INFUSING, RIGHT GROIN A-LINE INTACT AND ZEROED, KELLEY PATENT TO BSD, SCD'S TO BILAT LOWER LEGS, VITALS STABLE
[2019-07-25 20:12] LABS: ANION GAP 13.7 mmol/L (8-16); CARBON DIOXIDE 23.1 mmol/L (21.0-32.0); CREATININE - SERUM 2.8 mg/dL (0.6-1.3); POTASSIUM - SERUM 4.8 mmol/L (3.5-5.1)
[2019-07-25 20:16] LABS: CALCIUM 6.4 mg/dL (8.5-10.1)
--- NOTE | 2019-07-25 21:30 | NUR ---
PT REMAINS SEDATED, AROUSES TO DEEP STIMULI, NO DISTRESS NOTED
[2019-07-26] VITALS (91 sets, daily range): BP systolic 95–121; BP diastolic 47–72
--- NOTE | 2019-07-26 00:15 | NUR ---
SPOKE WITH DR EL, UPDATED ON PT STATUS, ORDERS RECIEVED,VITALS STABLE
--- NOTE | 2019-07-26 01:00 | NUR ---
PT BATHED PER STAFF, PLACED OSTOMY BAG OVER DRAINING INCISION
[2019-07-26 03:52] LABS: BASOPHILS 0.7 % (0-2); EOSINOPHILS 0 % (0-7); HEMATOCRIT 28.9 % (42.0-54.0); HEMOGLOBIN 9.9 g/dL (13.5-17.5); LYMPHOCYTES 2.1 % (15-50); MCH 27.8 pg (26.0-34.0); MCHC 34.3 g/dL (31.0-37.0); MCV 81.2 fL (80.0-100.0); MONOCYTES 0.9 % (2-11); NEUTROPHILS 90.3 % (40-80); PLATELET COUNT 335 10x3/uL (130-400); RBC 3.56 10x6/uL (4.20-6.10); RDW 14.4 % (11.5-14.5); WBC 41.5 10x3/uL (4.8-10.8)
[2019-07-26 04:19] LABS: ANION GAP 11.7 mmol/L (8-16); BILIRUBIN - TOTAL 0.86 mg/dL (0.2-1.3); CARBON DIOXIDE 25.8 mmol/L (21.0-32.0); CREATININE - SERUM 2.3 mg/dL (0.6-1.3); MAGNESIUM - SERUM 2.6 mg/dL (1.8-2.4); POTASSIUM - SERUM 4.5 mmol/L (3.5-5.1)
[2019-07-26 04:31] LABS: ALBUMIN 1.8 g/dL (3.4-5.0); CALCIUM 6.6 mg/dL (8.5-10.1); PHOSPHOROUS 4.9 mg/dL (2.5-4.9); PROTEIN - SERUM 4.9 g/dL (6.4-8.2)
--- NOTE | 2019-07-26 05:00 | NUR ---
PT REMAINS SEDATED, EMPTIED 700 CC FROM OSTOMY BAG OVER DRAINING INCISION SITE, PLACED TO GRAVITY DRAINAGE
--- NOTE | 2019-07-26 09:50 | NUR ---
0700 AM ASSESMENT IS COMPLETEAFTER REPORT RECIEVED .. SEE SHIFT ASSESMENT FOR FINDINGS.. 0800 MOTHER CALLED INTO UNIT HAS PASSCODE UPDATE GIEN.. 0845 DR PULIDO IN TO SEE PATIENT..UPDATE GIVEN AND ORDERS ARE RECIEVED.. 0900 DR PAGAN IN TO SEE PATIENT AND UPDATE GIVEN DR PAGAN SPEAKING TO DR DURAND RE PATIENT AT THE NURSES DESK..
--- NOTE | 2019-07-26 10:07 | NUR ---
ECHO IN PROGRESS..
--- NOTE | 2019-07-26 11:53 | NUR ---
1140 DR GUZMAN IN TO SEE PATIENT.. FIO2 CHANGED TO 60% AT THIS TIME..
--- NOTE | 2019-07-26 15:15 | NUR ---
1200 MOTHER IN TO SEE PATIENT.. UPDATE GIVEN AND SHE SPOKJWE WITH PT.. 1300 DECREASING LEVOPHED FOR BP CONTROL.. REMAINS WITHOUT OTHER CHANGES.. 1500 ASSESMENT DONE , NEW BOTTLE PROCALAMINE HUNG AND LEVOPHED....
[2019-07-26 17:23] LABS: ANION GAP 9.9 mmol/L (8-16); CARBON DIOXIDE 29.8 mmol/L (21.0-32.0); POTASSIUM - SERUM 4.7 mmol/L (3.5-5.1)
[2019-07-26 17:31] LABS: CALCIUM 6.8 mg/dL (8.5-10.1)
--- NOTE | 2019-07-26 19:15 | NUR ---
PT SEDATED, ETT PATENT TO VENT, OGT TO LIWS WITH DARK GREEN OUTPUT,ABDOMINAL INCISION WITH OSTOMY BAG OVER LOWER ABD INCISION DRAINING ASCITES FLUID, KELLEY PATENT TO BSD, RIGHT GROIN CVL INTACT WITH IVF'S INFUSING, RIGHT GROIN A-LINE,INTACT AND ZEROED, SCD'S TO BILAT LOWER LEGS, VITALS STABLE
--- NOTE | 2019-07-26 21:30 | NUR ---
PT REMAINS SEDATED WITH NO CHANGES IN STATUS, WILL CONT TO MONITOR
[2019-07-27] VITALS (94 sets, daily range): BP systolic 82–128; BP diastolic 46–72
--- NOTE | 2019-07-27 01:00 | NUR ---
PT SEDATED, WEANING LEVOPHED, HR SINUS REGI, WILL CONT TO MONITOR
[2019-07-27 03:49] LABS: HEMATOCRIT 29.4 % (42.0-54.0); HEMOGLOBIN 9.8 g/dL (13.5-17.5); MCH 27.4 pg (26.0-34.0); MCHC 33.3 g/dL (31.0-37.0); MCV 82.1 fL (80.0-100.0); MEAN PLATELET VOLUME 8.1 fL (7.4-10.4); PLATELET COUNT 316 10x3/uL (130-400); RBC 3.58 10x6/uL (4.20-6.10); RDW 14.5 % (11.5-14.5); WBC 38.3 10x3/uL (4.8-10.8)
[2019-07-27 03:52] LABS: ANION GAP 11.6 mmol/L (8-16); BILIRUBIN - TOTAL 0.51 mg/dL (0.2-1.3); CARBON DIOXIDE 26.1 mmol/L (21.0-32.0); POTASSIUM - SERUM 4.7 mmol/L (3.5-5.1); PROTEIN - SERUM 5.2 g/dL (6.4-8.2); VANCOMYCIN - RANDOM 28.9 ug/mL (10.0-20.0)
[2019-07-27 03:59] LABS: ALBUMIN 2.3 g/dL (3.4-5.0)
[2019-07-27 04:33] LABS: LYMPHOCYTES 2 % (15-50); MONOCYTES 1 % (2-11); NEUTROPHILS 90 % (40-80); PLATELET ESTIMATE NORMAL
--- NOTE | 2019-07-27 05:15 | NUR ---
PT BRADYCARDIC, LOW 50'S, D/C'D PROPOFOL GTT, PT SEDATED, WILL CONT TO MONITORB/P STABLE
--- NOTE | 2019-07-27 07:00 | NUR ---
REC'D REPORT AND RESUMED CARE, ETT TO VENTILATION AND SECURED, ORAL CARE AND SUCTION COMPLETED, FIO2 60% SAT 98%, OTHER VSS, AGITATED, DOES NOT FOLLOW COMMANDS, OGT TO LIWS, GREEN DRAINAGE TO CANISTER, PRESSORS IN USE, SHOWING SB ON MONITOR, OTHER VSS, ABDOMEN WITH MULTI INCISIONS, LLQ WITH CDI DRESSING AND LEFT FLANK INCISION WITH DRAIN BAG IN USE WITH CLEAR YELLOW DRAINAGE TO BAG, KELLEY TO GRAVITY WITH CLOUDY YELLOW DRAINAGE TO BAG, SCD'S B/L, ASSESSMENT COMPLETED PER FLOWHSEET. REPOSITIONED UP AND TO BACK
--- NOTE | 2019-07-27 08:27 | NUR ---
Nutrition follow-up: Intubated, sedated with fentanyl; propofol off 2/2 decreased HR. Vasopressor, Levophed for hypotension ProcalAmine PPN infusing @ 75 ml/hr Labs reviewed Wt: 205# Pt not meeting estimated energy needs with current nutrition support. May need to consider TPN and lipids RDN following.
--- NOTE | 2019-07-27 09:00 | NUR ---
MORNING MEDS GIVEN PER APR FLOWSHEET
--- NOTE | 2019-07-27 09:50 | NUR ---
DR ALBRECHT HERE FOR EVAL, VENT SETTINGS CHANGED TO RATE 16, AND FIO2 50
--- NOTE | 2019-07-27 09:56 | NUR ---
Nutrition consult: Received verbal consult from Dr. Valdez to start trickle TFs. RDN ordered Osmolite 1.0 dillon @ 10 ml/hr; do not advance Thank you for the consult. RDN following.
--- NOTE | 2019-07-27 10:45 | NUR ---
TF OF OSMILITE 1.0 INTIATED PER ORDER
--- NOTE | 2019-07-27 15:00 | NUR ---
NO ACTUE CHANGE FROM PREVIOUS ASSESSMENT
--- NOTE | 2019-07-27 15:00 | NUR ---
ASSESSMENT COMPLETED PER FLOWSHEET, VSS, PRESSORS CONTINUE TO BE IN USE, NO ACUTE CHANGE FROM PREVIOUS
--- NOTE | 2019-07-27 18:55 | NUR ---
VENT ALARMING, TO BEDSIDE, ORAL CARE AND SUCTION COMPLETED
--- NOTE | 2019-07-27 19:00 | NUR ---
PT INTUBATED AND SEDATED, DOES NOT FOLLOW COMMANDS. LUNG SOUNDS DIMINISHED, ORAL CARE PROVIDED, THICK SECRETIONS PRESENT. S1S2 HEARD, PERIPHERAL PULSES PRESENT. MELISSA TO R GROIN ZEROED WITH GOOD WAVEFORM. BOWEL SOUNDS ABSENT. INCISIONS TO ABD, LEFT LOWER INCISION WITH OSTOMY BAG FOR DRAINAGE, SCANT SEROUS DRAINAGE PRESENT. KELLEY CATH INTACT WITH YELLOW URINE TO BEDSIDE DRAINAGE. PT REPOSITIONED WITH PROMINENCES BRIDGED. NO S/S OF PAIN. CPOC.
--- NOTE | 2019-07-27 22:00 | NUR ---
NO VISITORS FOR THE VISITATION.
--- NOTE | 2019-07-27 23:00 | NUR ---
REASSESSMENT COMPLETE, NO NEW CHANGES AT THIS TIME. PT REPOSITIONED WITH PROMINENCES BRIDGED. ORAL CARE PROVIDED. NO S/S OF PAIN. CPOC.
[2019-07-28] VITALS (93 sets, daily range): BP systolic 92–126; BP diastolic 44–72
--- NOTE | 2019-07-28 01:11 | NUR ---
COMPLETE CHG BATH AND LINEN CHANGE PROVIDED. KELLEY CATH CARE COMPLETE.
--- NOTE | 2019-07-28 03:00 | NUR ---
REASSESSMENT COMPLETE, NO NEW CHANGES AT THIS TIME. PT REPOSITIONED WITH PROMINENCES BRIDGED. ORAL CARE PROVIDED. CPOC.
--- NOTE | 2019-07-28 03:03 | NUR ---
REASSESSMENT COMPLETE PER SHIFT ASSESSMENT FLOWSHEET. NO NEW CHANGES AT THIS TIME. PT REPOSITIONED WITH PROMINENCES BRIDGED. ORAL CARE PROVIDED. CPOC.
--- NOTE | 2019-07-28 05:00 | NUR ---
PT REPOSITIONED WITH PROMINENCES BRIDGED. ORAL CARE PROVIDED. CPOC.
[2019-07-28 06:20] LABS: ALBUMIN 2.4 g/dL (3.4-5.0); ANION GAP 9.9 mmol/L (8-16); BILIRUBIN - TOTAL 0.44 mg/dL (0.2-1.3); CALCIUM 7.3 mg/dL (8.5-10.1); CARBON DIOXIDE 26.7 mmol/L (21.0-32.0); POTASSIUM - SERUM 4.6 mmol/L (3.5-5.1); PROTEIN - SERUM 5.2 g/dL (6.4-8.2); VANCOMYCIN - RANDOM 17.6 ug/mL (10.0-20.0)
[2019-07-28 06:27] LABS: BASOPHILS 0.1 % (0-2); EOSINOPHILS 0 % (0-7); HEMATOCRIT 32.2 % (42.0-54.0); HEMOGLOBIN 10.5 g/dL (13.5-17.5); LYMPHOCYTES 2.9 % (15-50); MCH 27.1 pg (26.0-34.0); MCHC 32.6 g/dL (31.0-37.0); MCV 83.2 fL (80.0-100.0); MEAN PLATELET VOLUME 8.4 fL (7.4-10.4); PLATELET COUNT 362 10x3/uL (130-400); RBC 3.87 10x6/uL (4.20-6.10); RDW 14.5 % (11.5-14.5); WBC 35.3 10x3/uL (4.8-10.8)
--- NOTE | 2019-07-28 07:00 | NUR ---
REC'D REPORT AND RESUMED CARE, ETT TO VENTILATION AND SECURED, OGT WITH OSIMILITE 1.0 TF INFUSING, RESIDUAL CHECK 30 CC, ABDOMINAL INCISIONS NOTED INCISION DRAINAGE CLEAR AND YELLOW BAG TO GRAVITY, KELLEY TO GRAVITY WITH CLOUDY DRAINAGE, PRESSORS IN USE, ASSESSMENT COMPLETED PER FLOWSHEET, VSS, REPOSITIONED TO BACK WITH HEELS FLOATED
--- NOTE | 2019-07-28 09:36 | NUR ---
Nutrition follow-up: Pt remains intubated, sedated ProcalAmine PPN @ 75 ml/hr Osmolite 1.0 dillon trickle feeds started at 10 ml/hr; do not increase at this time until pt off pressors. Labs reviewed RDN following.
--- NOTE | 2019-07-28 13:32 | OP ---
PATIENT NAME: RUBEN REBOLLAR MEDICAL RECORD: [id number] :64 LOCATION:D.[facility] D.2301 ADMISSION DATE:07/17/19 SURGEON: FRANDY AMAYA MD DATE OF OPERATION: 07/24/2019 PREOPERATIVE DIAGNOSES: 1. Ventilatory failure requiring mechanical ventilation. 2. Hepatic failure. 3. Hypotension. 4. Agitation. POSTOPERATIVE DIAGNOSES: 1. Ventilatory failure requiring mechanical ventilation. 2. Hepatic failure. 3. Hypotension. 4. Agitation. 5. Probable thrombus within the right internal jugular vein. PROCEDURE: 1. Right groin triple lumen central venous catheter. 2. Right groin arterial line for hemodynamic monitoring. SURGEON: Frandy Amaya MD TENNIS NET MAKER: None. BLOOD LOSS: 25 cc. ANESTHESIA: Local as well as propofol sedation and we had to add vecuronium as a paralytic. The patient underwent emergent intubation this morning. He underwent emergency bronchoscopy as well due to probable aspiration. He was moved to the ICU yesterday due to confusion, agitation and I was fearful that his condition would deteriorate. Indeed that is what has happened. OPERATIVE COURSE: The patient was seen in his ICU bed. He was positioned in the Trendelenburg position. The right neck and right chest were sterilely prepped and draped. I percutaneously accessed the right internal jugular vein, but could not get the wire to thread. I attempted a supraclavicular subclavian approach as well and this was not fruitful. I then brought the sterile ultrasound on to the field. With the patient in steep Trendelenburg, I was able to visualize the right common carotid artery as well as the right internal jugular vein and the right internal jugular vein was only slightly compressible. I believe there is thrombus within the right internal jugular vein. I abandoned these approaches. The patient was then positioned in the reverse Trendelenburg position. The right groin was sterilely prepped and draped. It was at this time, the patient became quite agitated. The agitation did not respond to increasing doses of propofol. Therefore, vecuronium was given as a paralytic. This was to protect him. Several times when he became agitated and was flailing around, he almost extubated himself. OPERATIVE REPORT [id number] RUBEN REBOLLAR The right common femoral vein was percutaneously accessed on the first try. A guidewire passed easily. A small skin anisha was accomplished. A vessel dilator was used to dilate the subcutaneous tract. A 16-cm triple lumen central venous catheter was inserted to the hub. It was sutured in place times 2. All lumens flushed easily and aspirated dark, nonpulsatile blood. Attention was then turned to placement of the arterial line. I percutaneously accessed the right common femoral artery in a retrograde fashion. A guidewire passed easily. A small skin anisha was accomplished. An Angiocath type catheter was inserted over the wire. The wire was removed. There was pulsatile blood coming out through the Angiocath. This was attached to a flush transducer tubing. The arterial line was sutured in place times 3. There was an excellent waveform on the monitor. Sterile dressings were applied. TRANSINT:[id number] Voice Confirmation ID: [id number] DOCUMENT ID: [id number] 07/25/2019 Edited for food services director error, dmm. FRANDY AMAYA MD at 1332 CC: [id number] DICTATION DATE: 07/24/19 1618 MUSIC PROFESSOR: 07/24/19 1641 ADM IN [facility] [address] [place] [address]
--- NOTE | 2019-07-28 19:52 | NUR ---
SHIFT ASSESSMENT COMPLETED SEE FLOWSHEET
--- NOTE | 2019-07-28 20:45 | NUR ---
PT RECEIVED HS MEDICATIONS, PT STILL NOT HAS NO MOTOR RESPONSE TO ANY STIMULI - PUPILS 2 AND FIXED - NOT VENT COMPLIANT, RT AT BEDSIDE PT HAS DECREASED TIDAL VOLUMES. WILL CONTINUE TO MONITOR
--- NOTE | 2019-07-28 23:30 | NUR ---
REASSESSMENT COMPLETED SEE FLOWSHEET - PT UNRESPONSIVE TO PAINFUL STIMULI - PUPILS ARE FIXED - CONTINUE TO DECREASE SEDATION.
[2019-07-29] VITALS (21 sets, daily range): BP systolic 86–112; BP diastolic 46–62
--- NOTE | 2019-07-29 03:53 | NUR ---
REASSESSMENT COMPLETED SEE FLOWSHEET
[2019-07-29 04:56] LABS: BASOPHILS 0.1 % (0-2); EOSINOPHILS 0 % (0-7); HEMATOCRIT 29.7 % (42.0-54.0); HEMOGLOBIN 9.5 g/dL (13.5-17.5); IMMATURE GRANULOCYTES 2.3 % (0-5); LYMPHOCYTES 4.6 % (15-50); MCH 27.1 pg (26.0-34.0); MCV 84.6 fL (80.0-100.0); MEAN PLATELET VOLUME 8.3 fL (7.4-10.4); MONOCYTES 0.5 % (2-11); NEUTROPHILS 92.5 % (40-80); PLATELET COUNT 302 10x3/uL (130-400); RBC 3.51 10x6/uL (4.20-6.10); RDW 14.6 % (11.5-14.5)
[2019-07-29 05:05] LABS: WBC 16.7 10x3/uL (4.8-10.8)
[2019-07-29 05:13] LABS: ALBUMIN 2.7 g/dL (3.4-5.0); ANION GAP 11.4 mmol/L (8-16); BILIRUBIN - TOTAL 0.45 mg/dL (0.2-1.3); CALCIUM 7.5 mg/dL (8.5-10.1); CARBON DIOXIDE 25.2 mmol/L (21.0-32.0); CREATININE - SERUM 2.1 mg/dL (0.6-1.3); POTASSIUM - SERUM 4.6 mmol/L (3.5-5.1); VANCOMYCIN - RANDOM 29.8 ug/mL (10.0-20.0)
--- NOTE | 2019-07-29 05:42 | NUR ---
PATIENT NOW RESPONSIVE TO PAINFUL STIMULI - NOT FOLLOWING COMMANDS, PUPILS ARE 3 AND BRISK, MOVING ARMS AND LEGS. FULL CHG BATH AND LINEN CHANGE COMPLETED. KELLEY CARE COMPLETED AT THIS TIME. VSS CPOC
--- NOTE | 2019-07-29 07:00 | NUR ---
REC'D REPORT AND RESUMED CARE, ETT TO VENTILATION AND SECURED, NO PRESSORS IN USE, VSS, ASSESS,ENT COMPLETED PER FLOWSHEET, REPOSITIONED TO BACK AND HEELS FLOATED, NO ACUTE CHANGE FROM PREVIOUS ASSESSMENT
--- NOTE | 2019-07-29 09:28 | NUR ---
Nutrition follow-up: Pt remains intubated, sedated with propofol 4.3 cc/hr. TF off 04/03 trach placement today Labs reviewed Wt: 205# RDN following.
--- NOTE | 2019-07-29 10:30 | NUR ---
DR PAGAN AT BEDSIDE, TRACHEOSTOMY AND CENTRAL LINE PLACED TO RIGHT SUBCLAVIAN WITHOUT DIFFICULTY, VSS,
--- NOTE | 2019-07-29 13:10 | NUR ---
ALL IV LINES CHANGED AND NEW ONES PLACED TO RIGHT SUBCLAVIAN
--- NOTE | 2019-07-29 14:23 | NUR ---
LARGE DIARRHEA BM, SKINCARE AND LINEN CHANGE COMPLETED, CHG BATH.
--- NOTE | 2019-07-29 18:15 | NUR ---
RESTING ON QUIETLY ON VENT, TRACH SECURED, VSS, FRESH TRACH PROTOCAL IN USE, WILL CONTINUE WITH POC
--- NOTE | 2019-07-29 19:10 | NUR ---
SPOKE WITH MOM WHOM PROVIDED PASSCODE UPDATED AND ANSWERED ALL QUESTIONS
--- NOTE | 2019-07-29 19:25 | NUR ---
RECEIVED BEDSIDE SHIFT REPORT CPOC
--- NOTE | 2019-07-29 21:30 | NUR ---
PT HAD LARGE LIQUID BOWEL MOVEMENT FULL LINEN CHANGE AND BED BATH COMPLETED. 2 RN AND 1 RT AT BEDSIDE PER FRESH TRACH PROTOCOL. PATIENT TOLERATED WELL. SPO2 MAINTAINED ABOVE 92% - DRAINING INCISION ON ABDOMEN CLEANED AND REDRESSED AT THIS TIME. VSS CPOC
--- NOTE | 2019-07-29 23:11 | NUR ---
REASSESSMENT COMPLETED SEE FLOWSHEET
[2019-07-30] VITALS (22 sets, daily range): BP systolic 90–130; BP diastolic 50–76
--- NOTE | 2019-07-30 03:10 | NUR ---
REASSESSMENT COMPLETED SEE FLOWSHEET
[2019-07-30 05:57] LABS: BASOPHILS 0.1 % (0-2); EOSINOPHILS 0.1 % (0-7); HEMATOCRIT 29.9 % (42.0-54.0); HEMOGLOBIN 9.8 g/dL (13.5-17.5); IMMATURE GRANULOCYTES 3.3 % (0-5); LYMPHOCYTES 2.6 % (15-50); MCH 27.5 pg (26.0-34.0); MCHC 32.8 g/dL (31.0-37.0); MEAN PLATELET VOLUME 8.3 fL (7.4-10.4); MONOCYTES 4.3 % (2-11); NEUTROPHILS 89.6 % (40-80); PLATELET COUNT 285 10x3/uL (130-400); RBC 3.56 10x6/uL (4.20-6.10); RDW 14.7 % (11.5-14.5); WBC 15.7 10x3/uL (4.8-10.8)
[2019-07-30 06:16] LABS: ALBUMIN 3.1 g/dL (3.4-5.0); ANION GAP 12.5 mmol/L (8-16); BILIRUBIN - TOTAL 0.55 mg/dL (0.2-1.3); CALCIUM 7.7 mg/dL (8.5-10.1); CARBON DIOXIDE 25.6 mmol/L (21.0-32.0); CREATININE - SERUM 1.7 mg/dL (0.6-1.3); POTASSIUM - SERUM 4.1 mmol/L (3.5-5.1); PROTEIN - SERUM 5.5 g/dL (6.4-8.2); VANCOMYCIN - RANDOM 17.5 ug/mL (10.0-20.0)
--- NOTE | 2019-07-30 06:23 | NUR ---
PAGED REGARDING CRITICAL LAB VALUE
--- NOTE | 2019-07-30 06:28 | NUR ---
DR RIOS RETURNED PAGE - ACKNOWLEDGED CRITICAL LAB VALUE
--- NOTE | 2019-07-30 16:48 | NUR ---
0700 REPORT RECIEVED AND CARE ASSUMED OF PATIENT.. SEE SHIFRT ASSESMENT FLOW SHEET FOR ASSESMENT FINDINGS.. PT IS WITH TRACH AND IS SEDATED ON THE VENT.. THERE IS AN OSTOMY BAG ON THE LEFT LATERAL ABDOMEN THAT IS COVERING AN OLD KARSTEN DRAIN SITE DRAINING INTO A KELLEY COLLECTION BAG YELLOW CLEAR DRAINAGE.. SOFT WRIST RESTRAINT ARE ON.. 0930 [employer] RENAL HERE AND PUPDATE GIVEN.. SHE STATES THAT DR DURAND WANTS PROCALAMINE DCd 1030 SEDATION AMOUNT LESSENED PER RT FOR CPAP TRIAL ORDERED BY DR GUZMAN.. 1045 CXR DONE 1120 PLACEDD ON CPAP BY RT 1200 REMAINS ON CPAP .. TOLERATING WELL.. DR HIRSCH IN TO SEE PATIENT UPDATE IS GIVEN.. 1315 DR WOODS IN TO SEE PATIEN UPDATE IS GIVEN AND PROCALAMINE DCd AT THIS TIME.. 1315 DR GUZMAN IN TO SEE PATIENT AND UPDATE IS GIVEN PATIENT REMAINS ON THE CPAP 1420 PLACED BACK ON VENT BY RT.. WITHOUT CHANGES IN THE SETTINGS.. SEDATION RESTARTED.. 1440 TUBE FEEDINGINCREASED TO 20 CC/HR PER ORDER DR GUZMAN.. 1530 COMPPLETE CHG BATH AND LINEN CHANGE IS DONE.. 1630 I AND O DONE..
--- NOTE | 2019-07-30 19:50 | NUR ---
SHIFT ASSESSMENT COMPLETED SEE FLOWSHEET
--- NOTE | 2019-07-30 21:15 | NUR ---
PT ON VENT CONNECTED BY TRACH, NO ACUTE CHANGES CSS CPOC
--- NOTE | 2019-07-30 23:15 | NUR ---
REASSESSMENT COMPLETED SEE FLOWSHEET
[2019-07-31] VITALS (32 sets, daily range): BP systolic 78–123; BP diastolic 41–74
--- NOTE | 2019-07-31 03:14 | NUR ---
REASSESSMENT COMPLETED SEE FLOWSHEET, HYPOTENSION NOTED, WILL CONTINUE TO CLOSELY MONITOR, CPOC
--- NOTE | 2019-07-31 05:15 | NUR ---
BM NOTED, FULL LINEN CHANGE AND HIBICLEANSE BATH COMPLETED AT THIS TIME. PT AFEBRILE AT THIS TIME. VSS SLIGHT HYPOTENSION WILL CONTINUE TO MONITOR
[2019-07-31 06:00] LABS: BASOPHILS 0.1 % (0-2); EOSINOPHILS 0.3 % (0-7); HEMATOCRIT 30.5 % (42.0-54.0); HEMOGLOBIN 9.6 g/dL (13.5-17.5); IMMATURE GRANULOCYTES 3.3 % (0-5); LYMPHOCYTES 2.8 % (15-50); MCH 26.7 pg (26.0-34.0); MCHC 31.5 g/dL (31.0-37.0); MEAN PLATELET VOLUME 8.5 fL (7.4-10.4); MONOCYTES 3.8 % (2-11); NEUTROPHILS 89.7 % (40-80); PLATELET COUNT 322 10x3/uL (130-400); RBC 3.59 10x6/uL (4.20-6.10); RDW 14.9 % (11.5-14.5); WBC 16.7 10x3/uL (4.8-10.8)
[2019-07-31 06:26] LABS: ANION GAP 10.5 mmol/L (8-16); BILIRUBIN - TOTAL 0.5 mg/dL (0.2-1.3); CALCIUM 7.5 mg/dL (8.5-10.1); CARBON DIOXIDE 26.7 mmol/L (21.0-32.0); CREATININE - SERUM 1.7 mg/dL (0.6-1.3); POTASSIUM - SERUM 4.2 mmol/L (3.5-5.1); PROTEIN - SERUM 5.2 g/dL (6.4-8.2); VANCOMYCIN - RANDOM 22.1 ug/mL (10.0-20.0)
--- NOTE | 2019-07-31 08:19 | NUR ---
0700 RESPORT RECIEVED AND CRE ASSUMED OF PATIENT.. SEE SHIFT ASSESMENT FOR ASSESMENT FINDINGS.. PT REMAINS ON VENT TO TRACH.. SOFT WRIST RESTRAINTS ARE ON.. 0730 ABGs DRAWN BY RT 0740 PT PLACED ON CPAP TRIAL.. DIPRIVAN DECREASED... 0740 LAB IN AND AMMONIA LEVEL DRAWN FROM CVL BY NURSE..
[2019-07-31 15:29] LABS: ANION GAP 10.5 mmol/L (8-16); CALCIUM 7.7 mg/dL (8.5-10.1); CARBON DIOXIDE 24.8 mmol/L (21.0-32.0); CREATININE - SERUM 1.7 mg/dL (0.6-1.3); POTASSIUM - SERUM 4.3 mmol/L (3.5-5.1)
--- NOTE | 2019-07-31 17:04 | NUR ---
0830 ROSE PICKARD RENAL IN TO SEE PATIENT .... UPDATE IS GIVEN.. 1030 DR WOODS IN TO SEE PATIENT AND UPDATE GIVEN.. 1100REASSESMENT IS DONE .. PT TEMP IN UP 100.[address] GUZMAN IN TO SEE PATIEN.. UPDATE IS GIVEN..CULTURE ORDERS ARE RECIEVED RE ELEVATED TEMP... 1400 PT IS RESTLESS.. PULLED ILLIOSTOMY BAG FROM DRAINING KARSTEN SITE.. BED IS NOW SATURATED WITH DRAINAGE..
--- NOTE | 2019-07-31 17:16 | NUR ---
1430 COMPLETE BATH AND LINEN CHANGE IS DONE.. URINE OBTAINED AND SENT TO LAB FOR URINE CULTURE.. CONITNUES ON CPAP O2 .. 1445 LAB IN AND DRAWING BLOOD CULTURES FROM PERIFERAL SITE.. ONE SET DRAWN BY NURSE FROM CVL [place].. 1500 VSS 1530 I AND O DONE 1630 PT IS VERY RESTLESS. RT PLACED PATIENT BACK ON VENT.. ORAL CARE GIVEN..
[2019-08-01] VITALS (24 sets, daily range): BP systolic 81–152; BP diastolic 46–78
[2019-08-01 05:53] LABS: BASOPHILS 0.1 % (0-2); EOSINOPHILS 0.1 % (0-7); HEMATOCRIT 32.1 % (42.0-54.0); HEMOGLOBIN 10.2 g/dL (13.5-17.5); IMMATURE GRANULOCYTES 1.8 % (0-5); LYMPHOCYTES 2.1 % (15-50); MCH 27.1 pg (26.0-34.0); MCHC 31.8 g/dL (31.0-37.0); MCV 85.1 fL (80.0-100.0); MEAN PLATELET VOLUME 8.4 fL (7.4-10.4); MONOCYTES 3.7 % (2-11); NEUTROPHILS 92.2 % (40-80); PLATELET COUNT 338 10x3/uL (130-400); RBC 3.77 10x6/uL (4.20-6.10)
--- NOTE | 2019-08-01 05:53 | NUR ---
1900 - REPORT RECEIVED. PT SEDATED ON VENT, NO ACUTE DISTRESS NOTED. NGT IN PLACE, LT SUBCLAVIAN CVL INFUSING, SEE IV FLOWSHEET. ASSESSMENT COMPLETE, SEE FLOWSHEET. 2100 - PT SEDATED ON VENT, REPOSITIONED FOR COMFORT. 2300 - REASSESSMENT COMPLETED. 0100 - PT REPOSITIONED FOR COMFORT. 0300 - REASSESSMENT COMPLETE, SEE FLOWSHEET. 0500 - PT GIVEN CHG BATH, TOLERATED WELL.
[2019-08-01 06:00] LABS: ANION GAP 10.7 mmol/L (8-16); BILIRUBIN - TOTAL 0.45 mg/dL (0.2-1.3); CALCIUM 7.1 mg/dL (8.5-10.1); CARBON DIOXIDE 26.1 mmol/L (21.0-32.0); CREATININE - SERUM 1.7 mg/dL (0.6-1.3); POTASSIUM - SERUM 4.8 mmol/L (3.5-5.1); PROTEIN - SERUM 4.8 g/dL (6.4-8.2)
[2019-08-01 06:02] LABS: ALBUMIN 2.2 g/dL (3.4-5.0)
--- NOTE | 2019-08-01 07:00 | NUR ---
REC'D REPORT AND RESUMED CARE, TRACH TO VENT AND SECURED, 40% FIO2 AND PEEP OF 7, LEFT NARE NGT WITH OSMILITE INFUSING AT 60 CC/HR, LEFT SC WITH PROPOFAL INFUSING AT 5 MCG AND D5 AT 75 CC/HR, ABDOMEN WITH LAP SITES X3 AND INCISIONS TO LEFT SIDE WITH UROSOTOMY BAG DRAINING CLEAR YELLOW FLUID, KELLEY TO GRAVITY WITH CLOUDY YELLOW DRAINAGE TO BAG, SCD'S B/L, ASSESSMENT COMPLETED PER FLOWSHEET, VSS, REPOSITIONED TO RIGHT SIDE WITH PILLOW TO BACK
--- NOTE | 2019-08-01 08:45 | NUR ---
CPAP TRIAL BEGAN PER SEDATION OFF, VSS
--- NOTE | 2019-08-01 09:10 | NUR ---
DR PAGAN HERE FOR EVAL, NEW ORDERS GIVEN, IVF CHANGED TO KVO
--- NOTE | 2019-08-01 09:45 | NUR ---
0836 BEGAN CPAP TRIAL 12/06 40% 0934 SWITCH BACK TO ASSIST CONTROL PATIENT WAS UNABLE TO TOLERATE BECAME AGITATED
--- NOTE | 2019-08-01 10:38 | NUR ---
Nutrition follow-up: Trach to vent; PEG tube with Osmolite 1.0 dillon @ 60 ml/hr Labs reviewed Wt: 171# +BM TF @ goal rate; pt is currently tolerating per nursing. RDN following.
--- NOTE | 2019-08-01 11:00 | NUR ---
INCONTINENT OF LARGE DIARRHEA STOOL TO STEFANEI PAD, REDNESS NOTED TO STEFANIE AREA, SKINCARE AND LINEN CHANGE COMPLETED
--- NOTE | 2019-08-01 15:00 | NUR ---
INCONTINENT OF LARGE DIARRHEA STOOL, SKIN CARE AND LINEN CHANGE COMPLETED, NO OTHER ACUTE CHANGES FROM PREVIOUS ASSESSMENT
--- NOTE | 2019-08-01 17:30 | NUR ---
RESTING WITH NO SIGNS OF DISTRESS, VSS, ORAL CARE AND SUCTION COMPLETED, NO OTHER ACUTE CHANGES FROM PREVIOUS
[2019-08-02] VITALS (24 sets, daily range): BP systolic 73–117; BP diastolic 47–70
[2019-08-02 06:12] LABS: APTT 25.8 SECONDS (22.8-39.4); INR 1.06 (0.85-1.17); PROTIME 13.7 SECONDS (11.6-15.0)
[2019-08-02 06:26] LABS: ALBUMIN 2.1 g/dL (3.4-5.0); ANION GAP 10.5 mmol/L (8-16); BILIRUBIN - TOTAL 0.48 mg/dL (0.2-1.3); CALCIUM 7.7 mg/dL (8.5-10.1); CARBON DIOXIDE 26.4 mmol/L (21.0-32.0); CREATININE - SERUM 1.4 mg/dL (0.6-1.3); POTASSIUM - SERUM 4.9 mmol/L (3.5-5.1); PROTEIN - SERUM 5.1 g/dL (6.4-8.2)
[2019-08-02 06:28] LABS: HEMATOCRIT 36.9 % (42.0-54.0); HEMOGLOBIN 11.6 g/dL (13.5-17.5); MCHC 31.4 g/dL (31.0-37.0); MEAN PLATELET VOLUME 8.5 fL (7.4-10.4); PLATELET COUNT 376 10x3/uL (130-400); RBC 4.29 10x6/uL (4.20-6.10); RDW 14.8 % (11.5-14.5); WBC 23.6 10x3/uL (4.8-10.8)
[2019-08-02 10:22] LABS: ANISOCYTOSIS OCC; EOSINOPHILS 2 % (0-7); LYMPHOCYTES 13 % (15-50); MONOCYTES 4 % (2-11); NEUTROPHILS 78 % (40-80); PLATELET ESTIMATE NORMAL
--- NOTE | 2019-08-02 17:41 | MORECARE ---
CASE MANAGEMENT DISCHARGE SUMMARY PATIENT: RUBEN REBOLLAR UNIT: [id number] ADM DATE: 07/17/19 AGE: 58 : 64 SEX: M ROOM/BED: D.2301 AUTHOR: DANYDOC PHYSICIAN: REFERRING PHYSICIAN: ANTONY ABURTO DO DATE OF SERVICE: 08/02/19 Discharge Plan Patient Name: RUBEN REBOLLAR Facility: [facility]:[place] : 1960 Planned Disposition: Home Anticipated Discharge Date: Discharge Date: Expected LOS: Initial Reviewer: [email or web address] Initial Review Date: 07/20/2019 Generated: 08/02/19 6:40 pm Comments DCP- Discharge Planning Updated by [email or web address]: Zeina Kapoor on 08/02/19 4:[address] CM spoke with Dr. Ivy and she stated that patient is to ill at this time to consider transfer to LTACH facility. CM will continue to follow and assist as needed with discharge / planning. DCP- Discharge Planning Updated by [email or web address]: Zeina Kapoor on 07/20/19 6:[address] Patient Name: RUBEN REBOLLAR Admission Status: ER Accout number: [id number] Admission Date: 07-17-2019 : 1960 Admission Diagnosis:VENTRAL HERNIA WITHOUT OBSTRUCTION OR GANGRENE Attending: ANTONY ABURTO Current LOS: 3 Anticipated DC Date: Planned Disposition: Home Primary Insurance: [employer] Discharge Planning Comments: CM met with patient at bedside after explaining CM role and obtaining verbal consent. Patient lives at home alone where he is independent with his care and plans to return there upon discharge. Patient states he lives in a camper in his mother's yard. Patient feels this would be a safe discharge. CM discussed availability / needs of home health and medical equipment. Patient denies any discharge needs at this time. Patient states he will have his family drive him home upon discharge. CM will continue to follow and assist as needed with discharge planning / needs. Associate Pathologist: Zeina Kapoor DCPIA - Discharge Planning Initial Assessment Updated by [email or web address]: Zeina Kapoor on 07/20/19 7:07 pm * Is the patient Alert and Oriented? Yes * How many steps to enter\exit or inside your home? * PCP [facility] * [facility] * Preadmission Environment Home Alone * ADLs Independent * Equipment Walker * List name and contact numbers for known caregivers / representatives who currently or will assist patient after discharge: PAULIE REBOLLAR - MOTHER - [phone] * Verbal permission to speak to the caregivers and representatives has been obtained from the patient. Yes * Community resources currently utilized None * Additional services required to return to the preadmission environment? No * Can the patient safely return to the preadmission environment? Yes * Has this patient been hospitalized within the prior 30 days at any hospital? No Last DP export: 07/20/19 6:09 p Patient Name: RUBEN REBOLLAR Page [id number] at 1741 All edits/amendments must be made on the electronic document DICTATION DATE: 08/02/191739 HIDE HANDLER: ARMANDO 08/02/191739 RPT#: [id number] DC DATE: STATUS: ADM IN [facility] [address] [place] [address] END OF REPORT
[2019-08-03] VITALS (24 sets, daily range): BP systolic 76–129; BP diastolic 46–78
[2019-08-03 06:59] LABS: BASOPHILS 0.1 % (0-2); EOSINOPHILS 1.2 % (0-7); HEMATOCRIT 36.4 % (42.0-54.0); HEMOGLOBIN 11.3 g/dL (13.5-17.5); IMMATURE GRANULOCYTES 0.5 % (0-5); LYMPHOCYTES 4.4 % (15-50); MCH 26.8 pg (26.0-34.0); MCV 86.3 fL (80.0-100.0); MEAN PLATELET VOLUME 8.4 fL (7.4-10.4); MONOCYTES 3.2 % (2-11); NEUTROPHILS 90.6 % (40-80); PLATELET COUNT 383 10x3/uL (130-400); RBC 4.22 10x6/uL (4.20-6.10); RDW 14.7 % (11.5-14.5); WBC 22.4 10x3/uL (4.8-10.8)
--- NOTE | 2019-08-03 07:00 | NUR ---
REC'D REPORT AND RESUMED CARE, TRACT TO VENTILATION AND SECURED, O2 SAT 97%, FIO2 40, NGT TO RIGHT NARE, PULMOCARE INFUSING AT 60 CC/HR, LEFT SC WITH D5W, PROPOFAL AND FENTANYL INFUSING, BELLY WITH MULTI INCISIONS, LEFT SIDE WITH DRAIN BAG, CLAR YELLOW DRAINAGE, KELLEY TO GRAVITY WITH CONCENTRATED DARK DRAINAGE, SCD'S B/L, ASSESSMENT COMPLETED PER FLOWSHEET, WILL CONTINUE WITH POC
[2019-08-03 07:05] LABS: ALBUMIN 1.8 g/dL (3.4-5.0); ANION GAP 11.8 mmol/L (8-16); BILIRUBIN - TOTAL 0.59 mg/dL (0.2-1.3); CALCIUM 7.8 mg/dL (8.5-10.1); CARBON DIOXIDE 25.4 mmol/L (21.0-32.0); CREATININE - SERUM 1.6 mg/dL (0.6-1.3); POTASSIUM - SERUM 5.2 mmol/L (3.5-5.1); PROTEIN - SERUM 5.2 g/dL (6.4-8.2)
--- NOTE | 2019-08-03 08:40 | NUR ---
ORAL CONTRAST GIVEN VIA NGT PER ORDER FOR PENDING CT
--- NOTE | 2019-08-03 09:08 | NUR ---
NS 1 L BOULUS GIVNE PER ORDER
--- NOTE | 2019-08-03 09:25 | NUR ---
TO RADIOLOGY FOR PENDING CT, PORTABLE VENT AND SEDATION IN USE
--- NOTE | 2019-08-03 09:54 | NUR ---
BACK FROM CT, RECONNECTED TO MONITORS, VSS, ORAL CARE AND SUCTION COMPLETED, REPOSITIONED FOR COMFORT
--- NOTE | 2019-08-03 10:13 | NUR ---
Nutrition follow-up: Pt scheduled for PEG tube placement today NPO Labs reviewed Wt: 182# RDN following.
--- NOTE | 2019-08-03 11:50 | NUR ---
PPEG COMPLETED AT BEDSIDE BY DR PAGAN WITH GI TEAM, PLACED MID ABDOMEN WITHOUT DIFFICULTY. VSS, ABOMINAL BINDER ORDERED
--- NOTE | 2019-08-03 14:45 | NUR ---
TO CT FOR ABDOMINAL ABCESS REMOVAL, BP 82/52, LEVAPHED INITIATED AT 5 MCG, BP115/76,
--- NOTE | 2019-08-03 14:54 | NUR ---
CM CALLED AND SPOKE PATIENT'S MOTHER TO CONFIRM CODE STATUS AND AT THIS TIME SHE WOULD LIKE FOR HIM TO FULL CODE AND THIS WAS CONFIRMED WITH NURSE SRIDEVI RN
--- NOTE | 2019-08-03 15:15 | NUR ---
BACK TO ROOM FROM CT FOR ABCESS REMOVAL, RECONNECTED TO ICU MONITORS, VSS, REPOSITIONED FOR COMFORT, WILL CONTINUE WITH POC
--- NOTE | 2019-08-03 17:40 | NUR ---
ORAL CARE AND SUCTION COMPLETED AT BEDSIDE, NO ACUTE CHANGE FROM PREVIOUS ASSESSMENT
[2019-08-04] VITALS (24 sets, daily range): BP systolic 99–144; BP diastolic 60–101
[2019-08-04 06:26] LABS: HEMATOCRIT 32.9 % (42.0-54.0); HEMOGLOBIN 10.2 g/dL (13.5-17.5); MCH 26.5 pg (26.0-34.0); MCV 85.5 fL (80.0-100.0); MEAN PLATELET VOLUME 8.5 fL (7.4-10.4); PLATELET COUNT 416 10x3/uL (130-400); RBC 3.85 10x6/uL (4.20-6.10); RDW 14.6 % (11.5-14.5); WBC 20.6 10x3/uL (4.8-10.8)
[2019-08-04 06:34] LABS: BILIRUBIN - TOTAL 0.47 mg/dL (0.2-1.3); CALCIUM 7.3 mg/dL (8.5-10.1); CARBON DIOXIDE 22.9 mmol/L (21.0-32.0); CREATININE - SERUM 1.2 mg/dL (0.6-1.3); PROTEIN - SERUM 4.9 g/dL (6.4-8.2)
[2019-08-04 06:39] LABS: POTASSIUM - SERUM 4.2 mmol/L (3.5-5.1)
[2019-08-04 06:40] LABS: ALBUMIN 2.3 g/dL (3.4-5.0); ANION GAP 15.3 mmol/L (8-16)
--- NOTE | 2019-08-04 07:10 | NUR ---
0705 DR RIOS ROUNDING ON PATIENT
--- NOTE | 2019-08-04 07:15 | NUR ---
0700 RECEIVED BEDSIDE REPORT ASSESSMENT COMPLETE TUBE FEEDING OSMOLYTE AT 60ML/HOUR AND WATER FLUSH AT 60ML/HOUR TO ABDOMINAL PEG TF RESIDUAL 45 ML PEG SITE SATISFACTORY NO DRAINAGE NOTED
[2019-08-04 10:54] LABS: LYMPHOCYTES 9 % (15-50); MONOCYTES 6 % (2-11); NEUTROPHILS 84 % (40-80)
[2019-08-04 10:55] LABS: PLATELET ESTIMATE INCREASED; ROULEAUX OCC
--- NOTE | 2019-08-04 12:00 | NUR ---
1200 DECREASED FENTANLY INFUSION BY HALF TO 150 MCG/HOUR PER DR ADHIKARI REQUEST
--- NOTE | 2019-08-04 12:18 | NUR ---
0900 CHANGED LINEN TO DRAW SHEET TO DECREASE SLIDING IN BED
[2019-08-04 13:10] LABS: AEROBE ID Final report (())
--- NOTE | 2019-08-04 13:59 | NUR ---
1100 CHANGED LEFT SUBCLAVIAN CENTRAL LINE DRESSING
--- NOTE | 2019-08-04 14:00 | NUR ---
1300 LARGE LIQUID BM NOTED DR PAGAN AT BEDSIDE SPEAKING WITH PATIENTS MOTHER CHG BATH COMPLETED
--- NOTE | 2019-08-04 15:40 | NUR ---
1500 RESTING QUIETLY WITH EYES CLOSED APPEARS COMFORTABLE IN BED TUBE FEEDING OF OSMOLYTE 1.0 CONTINUES AT 60ML PER HOUR AND FREE WATER FLUSH AT 100ML/HOUR
--- NOTE | 2019-08-04 17:00 | NUR ---
1700 LARGE BROWN LIQUID BM NOTED
--- NOTE | 2019-08-04 20:05 | MORECARE ---
CASE MANAGEMENT DISCHARGE SUMMARY PATIENT: RUBEN REBOLLAR UNIT: [id number] ADM DATE: 07/17/19 AGE: 58 : 64 SEX: M ROOM/BED: D.2301 AUTHOR: DANY,DOC PHYSICIAN: REFERRING PHYSICIAN: ANTONY ABURTO DO DATE OF SERVICE: 08/04/19 Discharge Plan Patient Name: RUBEN REBOLLAR Facility: [facility]:[place] : 1960 Planned Disposition: Home Anticipated Discharge Date: Discharge Date: Expected LOS: Initial Reviewer: [email or web address] Initial Review Date: 07/20/2019 Generated: 08/04/19 9:05 pm Comments DCP- Discharge Planning Updated by [email or web address]: Zeina Kapoor on 08/04/19 7:[address] CM received an order for LTACH referral. CM will need to contact patient's Mother to get JAYLA completed. CM will continue to follow and assist as needed with discharge planning / needs DCP- Discharge Planning Updated by [email or web address]: Zeina Kapoor on 08/02/19 4:[address] CM spoke with Dr. Ivy and she stated that patient is to ill at this time to consider transfer to LTACH facility. CM will continue to follow and assist as needed with discharge / planning. DCP- Discharge Planning Updated by [email or web address]: Zeina Kapoor on 07/20/19 6:[address] Patient Name: RUBEN REBOLLAR Admission Status: ER Accout number: [id number] Admission Date: 07-17-2019 : 1960 Admission Diagnosis:VENTRAL HERNIA WITHOUT OBSTRUCTION OR GANGRENE Attending: ANTONY ABURTO Current LOS: 3 Anticipated DC Date: Planned Disposition: Home Primary Insurance: [employer]ED MEDICAID Discharge Planning Comments: CM met with patient at bedside after explaining CM role and obtaining verbal consent. Patient lives at home alone where he is independent with his care and plans to return there upon discharge. Patient states he lives in a camper in his mother's yard. Patient feels this would be a safe discharge. CM discussed availability / needs of home health and medical equipment. Patient denies any discharge needs at this time. Patient states he will have his family drive him home upon discharge. CM will continue to follow and assist as needed with discharge planning / needs. Law Writer: Zeina Kapoor DCPIA - Discharge Planning Initial Assessment Updated by [email or web address]: Zeina Kapoor on 07/20/19 7:07 pm * Is the patient Alert and Oriented? Yes * How many steps to enter\exit or inside your home? * PCP [facility] * [facility] * Preadmission Environment Home Alone * ADLs Independent * Equipment Walker * List name and contact numbers for known caregivers / representatives who currently or will assist patient after discharge: PAULIE REBOLLAR - [facility] - [phone] * Verbal permission to speak to the caregivers and representatives has been obtained from the patient. Yes * Community resources currently utilized None * Additional services required to return to the preadmission environment? No * Can the patient safely return to the preadmission environment? Yes * Has this patient been hospitalized within the prior 30 days at any hospital? No Last DP export: 08/02/19 4:41 pm Patient Name: RUBEN REBOLLAR Page [id number] at 2005 All edits/amendments must be made on the electronic document DICTATION DATE: 08/04/192004 RENTAL MANAGEMENT TRAINEE: ARMANDO 08/04/19 2005 RPT#: [id number] CT DATE: STATUS: ADM IN [facility] [address] [place] [address] END OF REPORT
[2019-08-05] VITALS (24 sets, daily range): BP systolic 90–126; BP diastolic 53–98
--- NOTE | 2019-08-05 06:47 | NUR ---
Nutrition follow-up: Pt intubated, aggitated off sedation; hypotension on sedation Osmolite 1.0 dillon @ 60 ml/hr H2O flush now at 100 ml/hr Labs: Na, Cl still elevated Wt: 179# Pt with noted reduced muscle mass observed by nutrition focused physical exam. Pt also with chronic liver disease with trach; now with PEG placement. Pt has had decreased nutritional intake > 2 weeks 2/2 TF intolerance, scheduled procedures. Based on GLIM criertia, pt is assessed with severe malnutrition of chronic illness. RDN will increase Osmolite 1.0 dillon to 75 ml/hr to better meet estimated nutritional needs. RDN following.
[2019-08-05 07:43] LABS: BASOPHILS 0.1 % (0-2); EOSINOPHILS 0.8 % (0-7); HEMATOCRIT 33.3 % (42.0-54.0); HEMOGLOBIN 10.6 g/dL (13.5-17.5); IMMATURE GRANULOCYTES 0.5 % (0-5); LYMPHOCYTES 4.8 % (15-50); MCH 26.8 pg (26.0-34.0); MCHC 31.8 g/dL (31.0-37.0); MCV 84.1 fL (80.0-100.0); MEAN PLATELET VOLUME 8.2 fL (7.4-10.4); MONOCYTES 4.9 % (2-11); NEUTROPHILS 88.9 % (40-80); RBC 3.96 10x6/uL (4.20-6.10); RDW 14.3 % (11.5-14.5); WBC 16.8 10x3/uL (4.8-10.8)
[2019-08-05 07:48] LABS: CALC OSMOLALITY 291 mosm/kg (275-300); CALCIUM 7.4 mg/dL (8.5-10.1); CHLORIDE - SERUM 109 mmol/L (98-107); GLUCOSE 118 mg/dL (74-106); POTASSIUM - SERUM 4.3 mmol/L (3.5-5.1); SODIUM 140 mmol/L (136-145); eGFR NON AFRICAN AMERICAN 82 mL/min (90-120)
--- NOTE | 2019-08-05 07:51 | NUR ---
0700 BEDSIDE REPORT FROM CHRISTIAN REPOSITIONED IN BED WITH ASSIST X 2 LAB DRAWS FROM Machelle RODRÍGUEZ
[2019-08-05 07:52] LABS: PLATELET COUNT 325 10x3/uL (130-400); UREA NITROGEN 45 mg/dL (7-18)
[2019-08-05 07:54] LABS: ALKALINE PHOSPHATASE 60 U/L (30-120); ALT (SGPT) 36 U/L (10-68); PROTEIN - SERUM 4.9 g/dL (6.4-8.2)
--- NOTE | 2019-08-05 12:15 | MORECARE ---
CASE MANAGEMENT DISCHARGE SUMMARY PATIENT: RUBEN REBOLLAR UNIT: [id number] ADM DATE: 07/17/19 AGE: 58 : 64 SEX: M ROOM/BED: D.2301 AUTHOR: DANYDOC PHYSICIAN: REFERRING PHYSICIAN: ANTONY ABURTO DO DATE OF SERVICE: 08/05/19 Discharge Plan Patient Name: RUBEN REBOLLAR Facility: [facility]:[place] : 1960 Planned Disposition: Home Anticipated Discharge Date: Discharge Date: Expected LOS: Initial Reviewer: [email or web address] Initial Review Date: 07/20/2019 Generated: 08/05/19 1:14 pm Comments DCP- Discharge Planning Updated by [email or web address]: Nichol Roth on 08/05/19 11:[address] TC TO PATIENT'S MOTHER TO DISCUSS AND OBTAIN CONSENT / PREFERENCE FOR LTACH. TELEPHONE THE MOTHER. NO ANSWER. LEFT VOICE MAIL. AWAIT RETURN TELEPHONE CALL. DCP- Discharge Planning Updated by [email or web address]: Zeina Kapoor on 08/04/19 7:[address] CM received an order for LTACH referral. CM will need to contact patient's Mother to get JAYLA completed. CM will continue to follow and assist as needed with discharge planning / needs DCP- Discharge Planning Updated by [email or web address]: Zeina Kapoor on 08/02/19 4:[address] CM spoke with Dr. Ivy and she stated that patient is to ill at this time to consider transfer to LTACH facility. CM will continue to follow and assist as needed with discharge / planning. DCP- Discharge Planning Updated by [email or web address]: Zeina Kapoor on 07/20/19 6:[address] Patient Name: RUBEN REBOLLAR Admission Status: ER Accout number: [id number] Admission Date: 07-17-2019 : 1960 Admission Diagnosis:VENTRAL HERNIA WITHOUT OBSTRUCTION OR GANGRENE Attending: ANTONY ABURTO Current LOS: 3 Anticipated DC Date: Planned Disposition: Home Primary Insurance: [employer] MANAGED MEDICAID Discharge Planning Comments: CM met with patient at bedside after explaining CM role and obtaining verbal consent. Patient lives at home alone where he is independent with his care and plans to return there upon discharge. Patient states he lives in a camper in his mother's yard. Patient feels this would be a safe discharge. CM discussed availability / needs of home health and medical equipment. Patient denies any discharge needs at this time. Patient states he will have his family drive him home upon discharge. CM will continue to follow and assist as needed with discharge planning / needs. Stone Derrickman And Rigger: Zeina Kapoor DCPIA - Discharge Planning Initial Assessment Updated by [id number]: Zeina Kapoor on 07/20/19 7:07 pm * Is the patient Alert and Oriented? Yes * How many steps to enter\exit or inside your home? * PCP [facility] * [facility] * Preadmission Environment Home Alone * ADLs Independent * Equipment Walker * List name and contact numbers for known caregivers / representatives who currently or will assist patient after discharge: PAULIE REBOLLAR - [facility] - [phone] * Verbal permission to speak to the caregivers and representatives has been obtained from the patient. Yes * Community resources currently utilized None * Additional services required to return to the preadmission environment? No * Can the patient safely return to the preadmission environment? Yes * Has this patient been hospitalized within the prior 30 days at any hospital? No Last DP export: 08/04/19 7:05 pm Patient Name: RUBEN REBOLLAR Page 11903 at 1215 All edits/amendments must be made on the electronic document DICTATION DATE: 08/05/191213 FORMING DEPARTMENT END FINDER: ARMANDO 08/05/19 1214 RPT#: [id number] UT DATE: STATUS: ADM IN [facility] [address] [place] [address] END OF REPORT
--- NOTE | 2019-08-05 12:36 | NUR ---
0800 DR RIOS ROUNDING ON PATIENT DECREASED FREE WATER TO 60 ML/ HOUR AND STOPED D5W INFUSION SAID HE WOULD SIGN OFF
--- NOTE | 2019-08-05 12:38 | NUR ---
6328 RESIDUAL CHECKED TWICE TO VERIFY REMAINS 10ML BOTH TIMES
--- NOTE | 2019-08-05 12:56 | MORECARE ---
CASE MANAGEMENT DISCHARGE SUMMARY PATIENT: RUBEN REBOLLAR UNIT: [id number] ADM DATE: 07/17/19 AGE: 58 : 64 SEX: M ROOM/BED: D.2301 AUTHOR: DANY,DOC PHYSICIAN: REFERRING PHYSICIAN: ANTONY ABURTO DO DATE OF SERVICE: 08/05/19 Discharge Plan Patient Name: RUBEN REBOLLAR Facility: [facility]:[place] : 1960 Planned Disposition: Home Anticipated Discharge Date: Discharge Date: Expected LOS: Initial Reviewer: [email or web address] Initial Review Date: 07/20/2019 Generated: 08/05/19 1:56 pm Comments DCP- Discharge Planning Updated by [email or web address]: Nichol Roth on 08/05/19 11:[address] CM SPOKE WITH THE PRIMARY NURSE. ADVISED DOCUMENTATION OF NEGATIVE COVID IS REQUIRED FOR REFERRAL TO LTACH. CM DID NOT FIND DOCUMENTATION OF COVID TESTING. DCP- Discharge Planning Updated by [email or web address]: Nichol Roth on 08/05/19 11:[address] TC TO [facility] REGARDING POSSIBLE REFERRAL TODAY. SPOKE W/ [place]. AWAITING CONSENT AND CHOICE FROM THE . WILL REQUIRE NEGATIVE COVID, CULT REPORTS, NSG NOTES X24 HRS, H/P, MAR AND PROGRESS NOTES FROM ALL PROVIDERS. PRESENTLY SHORT WAITING LIST. DCP- Discharge Planning Updated by [email or web address]: Nichol Roth on 08/05/19 11:[address] TC TO PATIENT'S MOTHER TO DISCUSS AND OBTAIN CONSENT / PREFERENCE FOR LTACH. TELEPHONE THE MOTHER. NO ANSWER. LEFT VOICE MAIL. AWAIT RETURN TELEPHONE CALL. DCP- Discharge Planning Updated by [email or web address]: Zeina Kapoor on 08/04/19 7:[address] CM received an order for LTACH referral. CM will need to contact patient's Mother to get JAYLA completed. CM will continue to follow and assist as needed with discharge planning / needs DCP- Discharge Planning Updated by [email or web address]: Zeina Kapoor on 08/02/19 4:[address] CM spoke with Dr. Ivy and she stated that patient is to ill at this time to consider transfer to LTACH facility. CM will continue to follow and assist as needed with discharge / planning. DCP- Discharge Planning Updated by [email or web address]: Zeina Kapoor on 07/20/19 6:[address] Patient Name: RUBEN REBOLLAR Admission Status: ER Accout number: [id number] Admission Date: 07-17-2019 : 1960 Admission Diagnosis:VENTRAL HERNIA WITHOUT OBSTRUCTION OR GANGRENE Attending: ANTONY ABURTO Current LOS: 3 Anticipated DC Date: Planned Disposition: Home Primary Insurance: [facility] MANAGED MEDICAID Discharge Planning Comments: CM met with patient at bedside after explaining CM role and obtaining verbal consent. Patient lives at home alone where he is independent with his care and plans to return there upon discharge. Patient states he lives in a camper in his mother's yard. Patient feels this would be a safe discharge. CM discussed availability / needs of home health and medical equipment. Patient denies any discharge needs at this time. Patient states he will have his family drive him home upon discharge. CM will continue to follow and assist as needed with discharge planning / needs. Line Assembly Utility Worker: Zeina Kapoor DCPIA - Discharge Planning Initial Assessment Updated by [email or web address]: Zeina Kapoor on 07/20/19 7:07 pm * Is the patient Alert and Oriented? Yes * How many steps to enter\exit or inside your home? * PCP [facility] * [facility] * Preadmission Environment Home Alone * ADLs Independent * Equipment Walker * List name and contact numbers for known caregivers / representatives who currently or will assist patient after discharge: PAULIE REBOLLAR - MOTHER - [phone] * Verbal permission to speak to the caregivers and representatives has been obtained from the patient. Yes * Community resources currently utilized None * Additional services required to return to the preadmission environment? No * Can the patient safely return to the preadmission environment? Yes * Has this patient been hospitalized within the prior 30 days at any hospital? No Last DP export: 08/05/19 11:15 am Patient Name: RUBEN REBOLLAR Page 41671 at 1256 All edits/amendments must be made on the electronic document DICTATION DATE: 08/05/19 1256 ASSISTANT PROFESSOR OF ART: ARMANDO 08/05/19 1256 RPT#: [id number] DC DATE: STATUS: ADM IN [facility] [address] [place] [address] END OF REPORT
--- NOTE | 2019-08-05 12:58 | NUR ---
2263 DR PAGAN ON UNIT INFORMED HIM THAT DR RIOS HAD STOPPED MAINLINE INFUSION AND DECREASED FREE WATER. PATIENT HAD EMESIS WHILE DR PAGAN WAS ON UNIT THE EMESIS HAD FOOD CLOTS IN IT NEW ORDERS NOTED FOR REGLAN
--- NOTE | 2019-08-05 13:15 | NUR ---
0930 STOPPED TUBE FEEDING WHEN EMESIS NOTED. WILL HOLD TUBE FEEDING FOR 2 HRS.
--- NOTE | 2019-08-05 13:17 | NUR ---
1100 RESTING WITH EYES CLOSED APPEARS TO BE SLEEPING
--- NOTE | 2019-08-05 13:19 | NUR ---
1200 BP 92/58 MAP 65 DECREASED FENTANYL INFUSIION TO 100 MCG/HOUR
--- NOTE | 2019-08-05 13:38 | NUR ---
1300 BP 102/64 MAP 77 NOTED AFTER DECREASE IN FENTANYL GTT DECREASED
--- NOTE | 2019-08-05 14:28 | NUR ---
1315 PATIENTS MOTHER AT BEDSIDE PRESENT IN ROOM UPDATE PROVIDED STATED THAT HER SON WAS COMMUNICATING WITH HER
--- NOTE | 2019-08-05 17:05 | MORECARE ---
CASE MANAGEMENT DISCHARGE SUMMARY PATIENT: RUBEN REBOLLAR UNIT: [id number] ADM DATE: 07/17/19 AGE: 58 : 64 SEX: M ROOM/BED: D.2301 AUTHOR: DANY,DOC PHYSICIAN: REFERRING PHYSICIAN: ANTONY ABURTO DO DATE OF SERVICE: 08/05/19 Discharge Plan Patient Name: RUBEN REBOLLAR Facility: [facility]:[place] : 1960 Planned Disposition: Home Anticipated Discharge Date: Discharge Date: Expected LOS: Initial Reviewer: [email or web address] Initial Review Date: 07/20/2019 Generated: 08/05/19 6:05 pm Comments DCP- Discharge Planning Updated by [email or web address]: Nichol Roth on 08/05/19 4:[address] Spoke with the patient's earlier this afternoon. Discussed LTACH referral. She wants to discuss with the doctor. She is not in agreement with LTACH transfer at this time. She plans to visit in the AM. COVID 19 testing is an requirement. [facility] has short waiting list at this time. DCP- Discharge Planning Updated by [email or web address]: Nichol Roth on 08/05/19 11:[address] CM SPOKE WITH THE PRIMARY NURSE. ADVISED DOCUMENTATION OF NEGATIVE COVID IS REQUIRED FOR REFERRAL TO LTACH. CM DID NOT FIND DOCUMENTATION OF COVID TESTING. DCP- Discharge Planning Updated by [email or web address]: Nichol Roth on 08/05/19 11:[address] TC TO [facility] REGARDING POSSIBLE REFERRAL TODAY. SPOKE W/ [place]. AWAITING CONSENT AND CHOICE FROM THE . WILL REQUIRE NEGATIVE COVID, CULT REPORTS, NSG NOTES X24 HRS, H/P, MAR AND PROGRESS NOTES FROM ALL PROVIDERS. PRESENTLY SHORT WAITING LIST. DCP- Discharge Planning Updated by [email or web address]: Nichol Roth on 08/05/19 11:[address] TC TO PATIENT'S MOTHER TO DISCUSS AND OBTAIN CONSENT / PREFERENCE FOR LTACH. TELEPHONE THE MOTHER. NO ANSWER. LEFT VOICE MAIL. AWAIT RETURN TELEPHONE CALL. DCP- Discharge Planning Updated by [email or web address]: Zeina Kapoor on 08/04/19 7:[address] CM received an order for LTACH referral. CM will need to contact patient's Mother to get JAYLA completed. CM will continue to follow and assist as needed with discharge planning / needs DCP- Discharge Planning Updated by [email or web address]: Zeina Kapoor on 08/02/19 4:[address] CM spoke with Dr. Ivy and she stated that patient is to ill at this time to consider transfer to LTACH facility. CM will continue to follow and assist as needed with discharge / planning. DCP- Discharge Planning Updated by [id number]: Zeina Kapoor on 07/20/19 6:[address] Patient Name: RUBEN REBOLLAR Admission Status: ER Accout number: [id number] Admission Date: 07-17-2019 : 1960 Admission Diagnosis:VENTRAL HERNIA WITHOUT OBSTRUCTION OR GANGRENE Attending: ANTONY ABURTO Current LOS: 3 Anticipated DC Date: Planned Disposition: Home Primary Insurance: [employer] MEDICAID Discharge Planning Comments: CM met with patient at bedside after explaining CM role and obtaining verbal consent. Patient lives at home alone where he is independent with his care and plans to return there upon discharge. Patient states he lives in a camper in his mother's yard. Patient feels this would be a safe discharge. CM discussed availability / needs of home health and medical equipment. Patient denies any discharge needs at this time. Patient states he will have his family drive him home upon discharge. CM will continue to follow and assist as needed with discharge planning / needs. Safety Glass Installer: Zeina Kapoor DCPIA - Discharge Planning Initial Assessment Updated by [id number]: Zeina Kapoor on 07/20/19 7:07 pm * Is the patient Alert and Oriented? Yes * How many steps to enter\exit or inside your home? * PCP [facility] * [facility] * Preadmission Environment Home Alone * ADLs Independent * Equipment Walker * List name and contact numbers for known caregivers / representatives who currently or will assist patient after discharge: PAULIE REBOLLAR - MOTHER - [phone] * Verbal permission to speak to the caregivers and representatives has been obtained from the patient. Yes * Community resources currently utilized None * Additional services required to return to the preadmission environment? No * Can the patient safely return to the preadmission environment? Yes * Has this patient been hospitalized within the prior 30 days at any hospital? No Last DP export: 08/05/19 11:56 am Patient Name: RUBEN REBOLLAR Page 46320 at 1705 All edits/amendments must be made on the electronic document DICTATION DATE: 08/05/191704 CENTERLESS GRINDER TENDER: ARMANDO 08/05/191704 RPT#: [id number] DC DATE: STATUS: ADM IN [facility] [address] [place] [address] END OF REPORT
--- NOTE | 2019-08-05 19:15 | NUR ---
BEDSIDE SHIFT REPORT COMPLETED - VSS PT AWAKE AND ALERT - FOLLOWS COMMANDS, ON VENT VIA TRACH. PEG SECURED BENEATH ABDOMINAL BINDER. RESIDUALS 15 CC - TF RUNNING AT 20CC AT THIS TIME. AFEBRILE, VSS CPOC SEE FLOWSHEET FOR FULL ASSESSMENT
--- NOTE | 2019-08-05 20:15 | NUR ---
COVID TEST COLLECTED AND DELIVERED TO LAB AT THIS TIME
--- NOTE | 2019-08-05 21:30 | NUR ---
BM NOTED, STEFANIE CARE AND PARTIAL LINEN CHANGE COMPLETED AT THIS TIME.
--- NOTE | 2019-08-05 23:21 | NUR ---
REASSESSMENT COMPLETED SEE FLOWSHEET
[2019-08-06] VITALS (24 sets, daily range): BP systolic 90–127; BP diastolic 51–72
--- NOTE | 2019-08-06 02:46 | NUR ---
BM NOTED, FULL LINEN CHANGE AND CHG BATH COMPLETED AT THIS TIME. KELLEY CARE COMPLETED, STAT LOCK PLACED ON LEG FOR KELLEY STABILIZATION. CHANGED DRAINAGE BAG FOR ASCITE FLUID. VSS PATIENT TOLERATED WELL. REASSESSMENT COMPLETED SEE FLOWSHEET
--- NOTE | 2019-08-06 04:00 | NUR ---
PROPOFOL TURNED OFF FOR HYPOTENSION
--- NOTE | 2019-08-06 05:20 | NUR ---
PT RESTING COMFORTABLY EYES CLOSED, MECHANIVAL VENTILATION VIA TRACH. HYPOTENSION NOTED, MAP >65 - WILL CONTINUE TO CLOSELY MONITOR
[2019-08-06 05:28] LABS: BASOPHILS 0.1 % (0-2); EOSINOPHILS 0.5 % (0-7); HEMATOCRIT 32.2 % (42.0-54.0); HEMOGLOBIN 10.1 g/dL (13.5-17.5); IMMATURE GRANULOCYTES 0.3 % (0-5); LYMPHOCYTES 4.4 % (15-50); MCH 26.4 pg (26.0-34.0); MCHC 31.4 g/dL (31.0-37.0); MCV 84.1 fL (80.0-100.0); MEAN PLATELET VOLUME 8.5 fL (7.4-10.4); MONOCYTES 5.1 % (2-11); NEUTROPHILS 89.6 % (40-80); PLATELET COUNT 332 10x3/uL (130-400); RBC 3.83 10x6/uL (4.20-6.10); RDW 14.2 % (11.5-14.5); WBC 15.1 10x3/uL (4.8-10.8)
--- NOTE | 2019-08-06 05:34 | NUR ---
FENTANYL TITRATED AT THIS TIME FOR HYPOTENSION
[2019-08-06 05:43] LABS: ALBUMIN 1.8 g/dL (3.4-5.0); ALKALINE PHOSPHATASE 62 U/L (30-120); ALT (SGPT) 32 U/L (10-68); BILIRUBIN - TOTAL 0.52 mg/dL (0.2-1.3); CALC OSMOLALITY 292 mosm/kg (275-300); CALCIUM 7.6 mg/dL (8.5-10.1); CARBON DIOXIDE 24.3 mmol/L (21.0-32.0); CHLORIDE - SERUM 111 mmol/L (98-107); GLUCOSE 94 mg/dL (74-106); POTASSIUM - SERUM 4.5 mmol/L (3.5-5.1); SODIUM 142 mmol/L (136-145); UREA NITROGEN 41 mg/dL (7-18); eGFR NON AFRICAN AMERICAN 82 mL/min (90-120)
--- NOTE | 2019-08-06 05:57 | NUR ---
PT MOTHER CALLED, PASSWORD PROVIDED - UPDATE GIVEN, ALL QUESTIONS ANSWERED - WILL BE COMING IN FOR A MEETING TODAY AT 12 PM
--- NOTE | 2019-08-06 14:44 | NUR ---
0700 REPORT RECIEVED AND CARE ASSUMED OF PATIENT.. SEE SHIFT ASSESMENT FOR FINDINGS.. PT APPEARS AWAKE WITH OPEN EYES BUT DOES NOT FOLLOW COMMANDS .. CONITNUES WITH TRACH TO VENTILATOR O2... BELLY BAND IN PLACE COVERING PEG TUBE AND ILLIOSTOMY BAG TO PREVENT PT FROM PULLING THEM OFF.. 0900 DR FOX IN TO SEE PT.. UPDATE IS GIVEN... 1000 DR BELLA IN TO SEE PATIENT 1200 MOTHER IN TO SEE PATIENT AND UPDATE IS GIVEN.. MOTHER STATES THAT SHE IS TO SEE CASE MANAGMENT TO SIGN PAPERS FOR L TACK .. CASE MANAGMENT PAGED AND INFORMED MOTHER IS IN UNIT..
--- NOTE | 2019-08-06 15:00 | NUR ---
1230 MOTHER GONE FROM UNIT..DID NOT SPEAK WITH CASE MANAGMENT.. STATED SHE WOULD SPEAK WITH THEM ON THURSDAY.. PATIENT VERY INTERACTIVE WITH MOTHER,, FOLLOWING HER COMMANDS AND TRYING TO TALK TO HER 1300 DR BELLA IN TO SEE PT 1400 COMPLETE CHG BATH AND LINEN CHANGE DONE
--- NOTE | 2019-08-06 19:07 | NUR ---
1600 FENTANYLL INCREASED FOR RESTLESSNESS.. 1700 TUBE FEEDING INCREASED TO [address] PAGAN
--- NOTE | 2019-08-06 19:09 | NUR ---
bedside shift report completed, pt repositioned for comfort - he is able to move on his own follows commands, attempting to talk around the trach. vss - cpoc shift assessment completed see flowsheet
--- NOTE | 2019-08-06 23:40 | NUR ---
PT AGITATED, ATTEMPTING TO PULL TUBES AND LINES DESPITE BEING RESTRAINED. REASSESSMENT COMPLETED SEE FLOWSHEET FOR FULL ASSESSMENT
[2019-08-07] VITALS (24 sets, daily range): BP systolic 90–121; BP diastolic 53–71
--- NOTE | 2019-08-07 03:11 | NUR ---
REASSESSMENT COMPLETED SEE FLOWSHEET
--- NOTE | 2019-08-07 06:07 | NUR ---
PATIENT RESTING COMFORTABLY ON VENT VSS CPOC
--- NOTE | 2019-08-07 13:25 | NUR ---
0700 REPORT RECIEVED AND CARE ASSUMED OF PATIENT.. SEE FLOW SHEET FOR SHIFT ASSESMENT.. PT REMAINS ON VENT TO TRACH .. THERE REMAINS AN ILLIOSTOMY BAG TO GRAVITY DRAIN CLEAR YELLOW DRAINAGE,,, THERE IS TUBE FEEDING INTO PEG BELLY BAND IN PLACE... 0800 DR FOX IN TO SEE PATIENT UPDATE IS GIVEN.. 0830 DR PAGAN IN TO SEE PATIENT.. UPDATE IS GIVEN.. 0900 MEDS GIVEN.. 1100 RE ASSESMENT COMPLETE..
--- NOTE | 2019-08-07 14:16 | MORECARE ---
CASE MANAGEMENT DISCHARGE SUMMARY PATIENT: RUBEN REBOLLAR UNIT: [id number] ADM DATE: 07/17/19 AGE: 58 : 64 SEX: M ROOM/BED: D.2301 AUTHOR: DANY,DOC PHYSICIAN: REFERRING PHYSICIAN: ANTONY ABURTO DO DATE OF SERVICE: 08/07/19 Discharge Plan Patient Name: RUBEN REBOLLAR Facility: [facility]:[place] : 1960 Planned Disposition: Home Anticipated Discharge Date: Discharge Date: Expected LOS: Initial Reviewer: [email or web address] Initial Review Date: 07/20/2019 Generated: 08/07/19 3:15 pm Comments DCP- Discharge Planning Updated by [id number]: Karyna Bond on 08/07/19 1:[address] CM met with the patient's mother, Cristela Rebollar, regarding patient choice for [facility], here [place]. Patient choice signed and mother expressed appreciation for attempt to get into LTAC. Original given to Cristela. DCP- Discharge Planning Updated by [email or web address]: Nichol Roth on 08/05/19 4:[address] Spoke with the patient's earlier this afternoon. Discussed LTACH referral. She wants to discuss with the doctor. She is not in agreement with LTACH transfer at this time. She plans to visit in the AM. COVID 19 testing is an requirement. [facility] short waiting list at this time. DCP- Discharge Planning Updated by [email or web address]: Nichol Roth on 08/05/19 11:[address] CM SPOKE WITH THE PRIMARY NURSE. ADVISED DOCUMENTATION OF NEGATIVE COVID IS REQUIRED FOR REFERRAL TO LTACH. CM DID NOT FIND DOCUMENTATION OF COVID TESTING. DCP- Discharge Planning Updated by [email or web address]: Nichol Roth on 08/05/19 11:[address] TC TO [facility] REGARDING POSSIBLE REFERRAL TODAY. SPOKE W/ [place]. AWAITING CONSENT AND CHOICE FROM THE . WILL REQUIRE NEGATIVE COVID, CULT REPORTS, NSG NOTES X24 HRS, H/P, MAR AND PROGRESS NOTES FROM ALL PROVIDERS. PRESENTLY SHORT WAITING LIST. DCP- Discharge Planning Updated by [email or web address]: Nichol Roth on 08/05/19 11:[address] TC TO PATIENT'S MOTHER TO DISCUSS AND OBTAIN CONSENT / PREFERENCE FOR LTACH. TELEPHONE THE MOTHER. NO ANSWER. LEFT VOICE MAIL. AWAIT RETURN TELEPHONE CALL. DCP- Discharge Planning Updated by [email or web address]: Zeina Kapoor on 08/04/19 7:[address] CM received an order for LTACH referral. CM will need to contact patient's Mother to get JAYLA completed. CM will continue to follow and assist as needed with discharge planning / needs DCP- Discharge Planning Updated by [email or web address]: Zeina Kapoor on 08/02/19 4:[address] CM spoke with Dr. Ivy and she stated that patient is to ill at this time to consider transfer to LTACH facility. CM will continue to follow and assist as needed with discharge / planning. DCP- Discharge Planning Updated by [email or web address]: Zeina Kapoor on 07/20/19 6:[address] Patient Name: RUBEN REBOLLAR Admission Status: ER Accout number: [id number] Admission Date: 07-17-2019 : 1960 Admission Diagnosis:VENTRAL HERNIA WITHOUT OBSTRUCTION OR GANGRENE Attending: ANTONY ABURTO Current LOS: 3 Anticipated DC Date: Planned Disposition: Home Primary Insurance: [employer] MEDICAID Discharge Planning Comments: CM met with patient at bedside after explaining CM role and obtaining verbal consent. Patient lives at home alone where he is independent with his care and plans to return there upon discharge. Patient states he lives in a camper in his mother's yard. Patient feels this would be a safe discharge. CM discussed availability / needs of home health and medical equipment. Patient denies any discharge needs at this time. Patient states he will have his family drive him home upon discharge. CM will continue to follow and assist as needed with discharge planning / needs. Rug Backing Stenciler: Zeina Kapoor DCPIA - Discharge Planning Initial Assessment Updated by [email or web address]: Zeina Kapoor on 07/20/19 7:07 pm * Is the patient Alert and Oriented? Yes * How many steps to enter\exit or inside your home? * PCP [facility] * [facility] * Preadmission Environment Home Alone * ADLs Independent * Equipment Walker * List name and contact numbers for known caregivers / representatives who currently or will assist patient after discharge: CRISTELA REBOLLAR - MOTHER - [phone] * Verbal permission to speak to the caregivers and representatives has been obtained from the patient. Yes * Community resources currently utilized None * Additional services required to return to the preadmission environment? No * Can the patient safely return to the preadmission environment? Yes * Has this patient been hospitalized within the prior 30 days at any hospital? No Last DP export: 08/05/19 4:05 pm Patient Name: RUBEN REBOLLAR Page 15976 at 1416 All edits/amendments must be made on the electronic document DICTATION DATE: 08/07/191415 WREATH MACHINE TENDER: ARMANDO 08/07/19 1416 RPT#: [id number] DC DATE: STATUS: ADM IN [facility] [address] [place] [address] END OF REPORT
--- NOTE | 2019-08-07 15:59 | NUR ---
1200 MOTHER IN TO SEE PATIENT.. CASE MANAGMENT HERE AND SPOKE WITH HER ABOUT PT TRANSFER TO [facility]... 1300 PT REMAINS WITHOUT CHANGES.. 1500 ASSESMENT DONE AND I AND O COMPLETE
--- NOTE | 2019-08-07 18:45 | NUR ---
1600 REPOSITIONED 1800 PT CONTINUES TO BE WITHOUT CHANGES
--- NOTE | 2019-08-07 18:55 | NUR ---
BEDSIDE SHIFT REPORT COMPLETED AT THIS TIME, SHIFT ASSESSMENT COMPLETED SEE FLOWSHEET. PATIENT IS CALM AND COOPERATIVE, ON VENT VIA TRACH, DENIES NEEDS VSS CPOC
--- NOTE | 2019-08-07 23:24 | NUR ---
REASSESSMENT COMPLETED SEE FLOWSHEET
[2019-08-08] VITALS (24 sets, daily range): BP systolic 86–136; BP diastolic 50–78
--- NOTE | 2019-08-08 03:14 | NUR ---
REASSESSMENT COMPLETED SEE FLOWSHEET
[2019-08-08 05:13] LABS: BASOPHILS 0.3 % (0-2); HEMATOCRIT 28.9 % (42.0-54.0); HEMOGLOBIN 9.2 g/dL (13.5-17.5); IMMATURE GRANULOCYTES 0.3 % (0-5); MCH 26.7 pg (26.0-34.0); MCHC 31.8 g/dL (31.0-37.0); MCV 83.8 fL (80.0-100.0); MEAN PLATELET VOLUME 8.5 fL (7.4-10.4); MONOCYTES 6.3 % (2-11); NEUTROPHILS 84.1 % (40-80); PLATELET COUNT 319 10x3/uL (130-400); RBC 3.45 10x6/uL (4.20-6.10); RDW 14.5 % (11.5-14.5); WBC 11.2 10x3/uL (4.8-10.8)
[2019-08-08 05:43] LABS: ALBUMIN 1.5 g/dL (3.4-5.0); ALKALINE PHOSPHATASE 59 U/L (30-120); ALT (SGPT) 29 U/L (10-68); BILIRUBIN - TOTAL 0.33 mg/dL (0.2-1.3); CALC OSMOLALITY 280 mosm/kg (275-300); CALCIUM 7.3 mg/dL (8.5-10.1); CARBON DIOXIDE 24.5 mmol/L (21.0-32.0); CHLORIDE - SERUM 107 mmol/L (98-107); GLUCOSE 90 mg/dL (74-106); POTASSIUM - SERUM 4.7 mmol/L (3.5-5.1); PROTEIN - SERUM 4.8 g/dL (6.4-8.2); SODIUM 137 mmol/L (136-145); UREA NITROGEN 32 mg/dL (7-18); eGFR NON AFRICAN AMERICAN 82 mL/min (90-120)
--- NOTE | 2019-08-08 06:30 | NUR ---
PT RESTING COMFORTABLY ON VENT, VSS CPOC
--- NOTE | 2019-08-08 09:43 | NUR ---
Nutrition follow-up: Pt with trach to vent; pt waving to me from room. Pt continues isolation. Osmolite 1.0 dillon increased to 60 ml/hr; goal rate 75 ml/hr Labs reviewed Wt: 180# RDN following.
--- NOTE | 2019-08-08 10:23 | MORECARE ---
CASE MANAGEMENT DISCHARGE SUMMARY PATIENT: RUBEN REBOLLAR UNIT: [id number] ADM DATE: 07/17/19 AGE: 58 : 64 SEX: M ROOM/BED: D.2301 AUTHOR: DANY,DOC PHYSICIAN: REFERRING PHYSICIAN: ANTONY ABURTO DO DATE OF SERVICE: 08/08/19 Discharge Plan Patient Name: RUBEN REBOLLAR Facility: [facility]:[place] : 1960 Planned Disposition: Home Anticipated Discharge Date: Discharge Date: Expected LOS: Initial Reviewer: [email or web address] Initial Review Date: 07/20/2019 Generated: 08/08/19 11:22 am Comments DCP- Discharge Planning Updated by [id number]: Karyna Bond on 08/07/19 1:[address] CM met with the patient's mother, Cristela Rebollar, regarding patient choice for [facility], here [place]. Patient choice signed and mother expressed appreciation for attempt to get into LTAC. Original given to Cristela. DCP- Discharge Planning Updated by [email or web address]: Nichol Roth on 08/05/19 4:[address] Spoke with the patient's earlier this afternoon. Discussed LTACH referral. She wants to discuss with the doctor. She is not in agreement with LTACH transfer at this time. She plans to visit in the AM. COVID 19 testing is an requirement. [facility] waiting list at this time. DCP- Discharge Planning Updated by [id number]: Nichol Roth on 08/05/19 11:[address] CM SPOKE WITH THE PRIMARY NURSE. ADVISED DOCUMENTATION OF NEGATIVE COVID IS REQUIRED FOR REFERRAL TO LTACH. CM DID NOT FIND DOCUMENTATION OF COVID TESTING. DCP- Discharge Planning Updated by [email or web address]: Nichol Roth on 08/05/19 11:[address] TC TO [facility] REGARDING POSSIBLE REFERRAL TODAY. SPOKE W/ [place]. AWAITING CONSENT AND CHOICE FROM THE . WILL REQUIRE NEGATIVE COVID, CULT REPORTS, NSG NOTES X24 HRS, H/P, MAR AND PROGRESS NOTES FROM ALL PROVIDERS. PRESENTLY SHORT WAITING LIST. DCP- Discharge Planning Updated by [email or web address]: Nichol Roth on 08/05/19 11:[address] TC TO PATIENT'S MOTHER TO DISCUSS AND OBTAIN CONSENT / PREFERENCE FOR LTACH. TELEPHONE THE MOTHER. NO ANSWER. LEFT VOICE MAIL. AWAIT RETURN TELEPHONE CALL. DCP- Discharge Planning Updated by [email or web address]: Zeina Kapoor on 08/04/19 7:[address] CM received an order for LTACH referral. CM will need to contact patient's Mother to get JAYLA completed. CM will continue to follow and assist as needed with discharge planning / needs DCP- Discharge Planning Updated by [email or web address]: Zeina Kapoor on 08/02/19 4:[address] CM spoke with Dr. Ivy and she stated that patient is to ill at this time to consider transfer to LTACH facility. CM will continue to follow and assist as needed with discharge / planning. DCP- Discharge Planning Updated by [email or web address]: Zeina Kapoor on 07/20/19 6:[address] Patient Name: RUBEN REBOLLAR Admission Status: ER Accout number: [id number] Admission Date: 07-17-2019 : 1960 Admission Diagnosis:VENTRAL HERNIA WITHOUT OBSTRUCTION OR GANGRENE Attending: ANTONY ABURTO Current LOS: 3 Anticipated DC Date: Planned Disposition: Home Primary Insurance: [employer] MEDICAID Discharge Planning Comments: CM met with patient at bedside after explaining CM role and obtaining verbal consent. Patient lives at home alone where he is independent with his care and plans to return there upon discharge. Patient states he lives in a camper in his mother's yard. Patient feels this would be a safe discharge. CM discussed availability / needs of home health and medical equipment. Patient denies any discharge needs at this time. Patient states he will have his family drive him home upon discharge. CM will continue to follow and assist as needed with discharge planning / needs. Language Therapist: Zeina Kapoor DCPIA - Discharge Planning Initial Assessment Updated by [email or web address]: Zeina Kapoor on 07/20/19 7:07 pm * Is the patient Alert and Oriented? Yes * How many steps to enter\exit or inside your home? * [facility] * [facility] * Preadmission Environment Home Alone * ADLs Independent * Equipment Walker * List name and contact numbers for known caregivers / representatives who currently or will assist patient after discharge: CRISTELA REBOLLAR - MOTHER - [phone] * Verbal permission to speak to the caregivers and representatives has been obtained from the patient. Yes * Community resources currently utilized None * Additional services required to return to the preadmission environment? No * Can the patient safely return to the preadmission environment? Yes * Has this patient been hospitalized within the prior 30 days at any hospital? No External Providers External Provider: [facility] Next Contact Date: Service Request Date: Service Type: Resolution: Reviewer: Comments: Last DP export: 08/07/19 1:16 pm Patient Name: RUBEN REBOLLAR Page [id number] at 1023 All edits/amendments must be made on the electronic document DICTATION DATE: 08/08/19 1022 TREKKING GUIDE: ARMANDO 08/08/19 1022 RPT#: [id number] DC DATE: STATUS: ADM IN [facility] [address] [place] [address] END OF REPORT
--- NOTE | 2019-08-08 13:45 | MORECARE ---
CASE MANAGEMENT DISCHARGE SUMMARY PATIENT: RUBEN REBOLLAR UNIT: [id number] ADM DATE: 07/17/19 AGE: 58 : 64 SEX: M ROOM/BED: D.2301 AUTHOR: DANY,DOC PHYSICIAN: REFERRING PHYSICIAN: ANTONY ABURTO DO DATE OF SERVICE: 08/08/19 Discharge Plan Patient Name: RUBEN REBOLLAR Facility: [facility]:[place] : 1960 Planned Disposition: Home Anticipated Discharge Date: Discharge Date: Expected LOS: Initial Reviewer: [id number] Initial Review Date: 07/20/2019 Generated: 08/08/19 2:45 pm Comments DCP- Discharge Planning Updated by [email or web address]: Karyna Bond on 08/08/19 12:[address] CM contacted LTAC service liaison representative, made her aware of LTAC order. Faxed required information to [phone], Phone #[phone]. DCP- Discharge Planning Updated by [email or web address]: Karyna Bond on 08/07/19 1:[address] CM met with the patient's mother, Cristela Rebollar, regarding patient choice for [facility]. Patient choice signed and mother expressed appreciation for attempt to get into LTAC. Original given to Cristela. DCP- Discharge Planning Updated by [email or web address]: Nichol Roth on 08/05/19 4:[address] Spoke with the patient's earlier this afternoon. Discussed LTACH referral. She wants to discuss with the doctor. She is not in agreement with LTACH transfer at this time. She plans to visit in the AM. COVID 19 testing is an requirement. [facility] short waiting list at this time. DCP- Discharge Planning Updated by [id number]: Nichol Roth on 08/05/19 11:[address] CM SPOKE WITH THE PRIMARY NURSE. ADVISED DOCUMENTATION OF NEGATIVE COVID IS REQUIRED FOR REFERRAL TO LTACH. CM DID NOT FIND DOCUMENTATION OF COVID TESTING. DCP- Discharge Planning Updated by [email or web address]: Nichol Roth on 08/05/19 11:[address] TC TO [facility] REGARDING POSSIBLE REFERRAL TODAY. SPOKE W/ [place]. AWAITING CONSENT AND CHOICE FROM THE . WILL REQUIRE NEGATIVE COVID, CULT REPORTS, NSG NOTES X24 HRS, H/P, MAR AND PROGRESS NOTES FROM ALL PROVIDERS. PRESENTLY SHORT WAITING LIST. DCP- Discharge Planning Updated by [email or web address]: Nichol Roth on 08/05/19 11:[address] TC TO PATIENT'S MOTHER TO DISCUSS AND OBTAIN CONSENT / PREFERENCE FOR LTACH. TELEPHONE THE MOTHER. NO ANSWER. LEFT VOICE MAIL. AWAIT RETURN TELEPHONE CALL. DCP- Discharge Planning Updated by [id number]: Zeina Kapoor on 08/04/19 7:[address] CM received an order for LTACH referral. CM will need to contact patient's Mother to get JAYLA completed. CM will continue to follow and assist as needed with discharge planning / needs DCP- Discharge Planning Updated by [id number]: Zeina Kapoor on 08/02/19 4:[address] CM spoke with Dr. Ivy and she stated that patient is to ill at this time to consider transfer to LTACH facility. CM will continue to follow and assist as needed with discharge / planning. DCP- Discharge Planning Updated by [id number]: Zeina Kapoor on 07/20/19 6:[address] Patient Name: RUBEN REBOLLAR Admission Status: ER Accout number: [id number] Admission Date: 07-17-2019 : 1960 Admission Diagnosis:VENTRAL HERNIA WITHOUT OBSTRUCTION OR GANGRENE Attending: ANTONY ABURTO Current LOS: 3 Anticipated DC Date: Planned Disposition: Home Primary Insurance: [facility] MANAGED MEDICAID Discharge Planning Comments: CM met with patient at bedside after explaining CM role and obtaining verbal consent. Patient lives at home alone where he is independent with his care and plans to return there upon discharge. Patient states he lives in a camper in his mother's yard. Patient feels this would be a safe discharge. CM discussed availability / needs of home health and medical equipment. Patient denies any discharge needs at this time. Patient states he will have his family drive him home upon discharge. CM will continue to follow and assist as needed with discharge planning / needs. Packing And Final Assembly Supervisor: Zeina Kapoor DCPIA - Discharge Planning Initial Assessment Updated by [email or web address]: Zeina Kapoor on 07/20/19 7:07 pm * Is the patient Alert and Oriented? Yes * How many steps to enter\exit or inside your home? * PCP [facility] * [facility] * Preadmission Environment Home Alone * ADLs Independent * Equipment Walker * List name and contact numbers for known caregivers / representatives who currently or will assist patient after discharge: CRISTELA REBOLLAR - [facility] - [phone] * Verbal permission to speak to the caregivers and representatives has been obtained from the patient. Yes * Community resources currently utilized None * Additional services required to return to the preadmission environment? No * Can the patient safely return to the preadmission environment? Yes * Has this patient been hospitalized within the prior 30 days at any hospital? No Last DP export: 08/08/19 9:23 am Patient Name: RUBEN REBOLLAR Page [phone] at 1345 All edits/amendments must be made on the electronic document DICTATION DATE: 08/08/19 1345 ANALYTICS CONSULTANT: ARMANDO 08/08/19 1345 RPT#: [id number] [place] DATE: STATUS: ADM IN [facility] [address] [place] [address] END OF REPORT
--- NOTE | 2019-08-08 14:14 | MORECARE ---
CASE MANAGEMENT DISCHARGE SUMMARY PATIENT: RUBEN REBOLLAR UNIT: [id number] ADM DATE: 07/17/19 AGE: 58 : 64 SEX: M ROOM/BED: D.2301 AUTHOR: DANY,DOC PHYSICIAN: REFERRING PHYSICIAN: ANTONY ABURTO DO DATE OF SERVICE: 08/08/19 Discharge Plan Patient Name: RUBEN REBOLLAR Facility: [facility]:[place] : 1960 Planned Disposition: Home Anticipated Discharge Date: Discharge Date: Expected LOS: 0 Initial Reviewer: [email or web address] Initial Review Date: 07/20/2019 Generated: 08/08/19 3:14 pm DCP- Discharge Planning Updated by [id number]: Karyna Bond on 08/08/19 12:[address] CM contacted LTAC telesales representative, made her aware of LTAC order. Faxed required information to [phone], Phone #[phone]. DCP- Discharge Planning Updated by [email or web address]: Karyna Bond on 08/07/19 1:[address] CM met with the patient's mother, Critsela Rebollar, regarding patient choice for [facility] Patient choice signed and mother expressed appreciation for attempt to get into LTAC. Original given to Cristela. DCP- Discharge Planning Updated by [id number]: Nichol Roth on 08/05/19 4:[address] Spoke with the patient's earlier this afternoon. Discussed LTACH referral. She wants to discuss with the doctor. She is not in agreement with LTACH transfer at this time. She plans to visit in the AM. COVID 19 testing is an requirement. [facility] short waiting list at this time. DCP- Discharge Planning Updated by [id number]: Nichol Roth on 08/05/19 11:[address] CM SPOKE WITH THE PRIMARY NURSE. ADVISED DOCUMENTATION OF NEGATIVE COVID IS REQUIRED FOR REFERRAL TO LTACH. CM DID NOT FIND DOCUMENTATION OF COVID TESTING. DCP- Discharge Planning Updated by [email or web address]: Nichol Roth on 08/05/19 11:[address] TC TO [facility] REGARDING POSSIBLE REFERRAL TODAY. SPOKE W/ [place]. AWAITING CONSENT AND CHOICE FROM THE . WILL REQUIRE NEGATIVE COVID, CULT REPORTS, NSG NOTES X24 HRS, H/P, MAR AND PROGRESS NOTES FROM ALL PROVIDERS. PRESENTLY SHORT WAITING LIST. DCP- Discharge Planning Updated by [id number]: Nichol Roth on 08/05/19 11:[address] TC TO PATIENT'S MOTHER TO DISCUSS AND OBTAIN CONSENT / PREFERENCE FOR LTACH. TELEPHONE THE MOTHER. NO ANSWER. LEFT VOICE MAIL. AWAIT RETURN TELEPHONE CALL. DCP- Discharge Planning Updated by [email or web address]: Zeina Kapoor on 08/04/19 7:[address] CM received an order for LTACH referral. CM will need to contact patient's Mother to get JAYLA completed. CM will continue to follow and assist as needed with discharge planning / needs DCP- Discharge Planning Updated by [email or web address]: Zeina Kapoor on 08/02/19 4:[address] CM spoke with Dr. Ivy and she stated that patient is to ill at this time to consider transfer to LTACH facility. CM will continue to follow and assist as needed with discharge / planning. DCP- Discharge Planning Updated by [email or web address]: Zeina Kapoor on 07/20/19 6:[address] Patient Name: RUBEN REBOLLAR Admission Status: ER Accout number: [id number] Admission Date: 07-17-2019 : 1960 Admission Diagnosis:VENTRAL HERNIA WITHOUT OBSTRUCTION OR GANGRENE Attending: ANTONY ABURTO Current LOS: 3 Anticipated DC Date: Planned Disposition: Home Primary Insurance: [facility] MANAGED MEDICAID Discharge Planning Comments: CM met with patient at bedside after explaining CM role and obtaining verbal consent. Patient lives at home alone where he is independent with his care and plans to return there upon discharge. Patient states he lives in a camper in his mother's yard. Patient feels this would be a safe discharge. CM discussed availability / needs of home health and medical equipment. Patient denies any discharge needs at this time. Patient states he will have his family drive him home upon discharge. CM will continue to follow and assist as needed with discharge planning / needs. Vice President Compliance: Zeina Kapoor DCPIA - Discharge Planning Initial Assessment Updated by [email or web address]: Zeina Kapoor on 07/20/19 7:07 pm * Is the patient Alert and Oriented? Yes * How many steps to enter\exit or inside your home? * PCP [facility] * [facility] * Preadmission Environment Home Alone * ADLs Independent * Equipment Walker * List name and contact numbers for known caregivers / representatives who currently or will assist patient after discharge: CRISTELA REBOLLAR - MOTHER - [phone] * Verbal permission to speak to the caregivers and representatives has been obtained from the patient. Yes * Community resources currently utilized None * Additional services required to return to the preadmission environment? No * Can the patient safely return to the preadmission environment? Yes * Has this patient been hospitalized within the prior 30 days at any hospital? No Last DP export: 08/08/19 12:45 pm Patient Name: RUBEN REBOLLAR Page [id number] at 1414 All edits/amendments must be made on the electronic document DICTATION DATE: 08/08/191413 SIMULATION SOFTWARE ENGINEER: ARMANDO 08/08/19 1414 RPT#: [id number] [place] DATE: STATUS: ADM IN [facility] [address] [place] [address] END OF REPORT
--- NOTE | 2019-08-08 14:34 | MORECARE ---
CASE MANAGEMENT DISCHARGE SUMMARY PATIENT: RUBEN REBOLLAR UNIT: [id number] ADM DATE: 07/17/19 AGE: 58 : 64 SEX: M ROOM/BED: D.2301 AUTHOR: DANY,DOC PHYSICIAN: REFERRING PHYSICIAN: ANTONY ABURTO DO DATE OF SERVICE: 08/08/19 Discharge Plan Patient Name: RUBEN REBOLLAR Facility: [facility]:[place] : 1960 Planned Disposition: Home Anticipated Discharge Date: Discharge Date: Expected LOS: 0 Initial Reviewer: [email or web address] Initial Review Date: 07/20/2019 Generated: 08/08/19 3:33 pm DCP- Discharge Planning Updated by [email or web address]: Karyna Bond on 08/08/19 12:[address] CM contacted LTAC cordage sales representative, made her aware of LTAC order. Faxed required information to [phone], Phone #[phone]. DCP- Discharge Planning Updated by [id number]: Karyna Bond on 08/07/19 1:[address] CM met with the patient's mother, Cristela Rebollar, regarding patient choice for [facility]. Patient choice signed and mother expressed appreciation for attempt to get into LTAC. Original given to Cristela. DCP- Discharge Planning Updated by [id number]: Nichol Roth on 08/05/19 4:[address] Spoke with the patient's earlier this afternoon. Discussed LTACH referral. She wants to discuss with the doctor. She is not in agreement with LTACH transfer at this time. She plans to visit in the AM. COVID 19 testing is an requirement. [facility] waiting list at this time. DCP- Discharge Planning Updated by [id number]: Nichol Roth on 08/05/19 11:[address] CM SPOKE WITH THE PRIMARY NURSE. ADVISED DOCUMENTATION OF NEGATIVE COVID IS REQUIRED FOR REFERRAL TO LTACH. CM DID NOT FIND DOCUMENTATION OF COVID TESTING. DCP- Discharge Planning Updated by [email or web address]: Nichol Roth on 08/05/19 11:[address] TC TO [facility] REGARDING POSSIBLE REFERRAL TODAY. SPOKE W/ [place]. AWAITING CONSENT AND CHOICE FROM THE . WILL REQUIRE NEGATIVE COVID, CULT REPORTS, NSG NOTES X24 HRS, H/P, MAR AND PROGRESS NOTES FROM ALL PROVIDERS. PRESENTLY SHORT WAITING LIST. DCP- Discharge Planning Updated by [id number]: Nichol Roth on 08/05/19 11:[address] TC TO PATIENT'S MOTHER TO DISCUSS AND OBTAIN CONSENT / PREFERENCE FOR LTACH. TELEPHONE THE MOTHER. NO ANSWER. LEFT VOICE MAIL. AWAIT RETURN TELEPHONE CALL. DCP- Discharge Planning Updated by [email or web address]: Zeina Kapoor on 08/04/19 7:[address] CM received an order for LTACH referral. CM will need to contact patient's Mother to get JAYLA completed. CM will continue to follow and assist as needed with discharge planning / needs DCP- Discharge Planning Updated by [id number]: Zeina Kapoor on 08/02/19 4:[address] CM spoke with Dr. Ivy and she stated that patient is to ill at this time to consider transfer to LTACH facility. CM will continue to follow and assist as needed with discharge / planning. DCP- Discharge Planning Updated by [email or web address]: Zeina Kapoor on 07/20/19 6:[address] Patient Name: RUBEN REBOLLAR Admission Status: ER Accout number: [id number] Admission Date: 07-17-2019 : 1960 Admission Diagnosis:VENTRAL HERNIA WITHOUT OBSTRUCTION OR GANGRENE Attending: ANTONY ABURTO Current LOS: 3 Anticipated DC Date: Planned Disposition: Home Primary Insurance: [facility] MANAGED MEDICAID Discharge Planning Comments: CM met with patient at bedside after explaining CM role and obtaining verbal consent. Patient lives at home alone where he is independent with his care and plans to return there upon discharge. Patient states he lives in a camper in his mother's yard. Patient feels this would be a safe discharge. CM discussed availability / needs of home health and medical equipment. Patient denies any discharge needs at this time. Patient states he will have his family drive him home upon discharge. CM will continue to follow and assist as needed with discharge planning / needs. Stripping And Booking Machine Operator: Zeina Kapoor DCPIA - Discharge Planning Initial Assessment Updated by [email or web address]: Zeina Kapoor on 07/20/19 7:07 pm * Is the patient Alert and Oriented? Yes * How many steps to enter\exit or inside your home? * PCP [facility] * [facility] * Preadmission Environment Home Alone * ADLs Independent * Equipment Walker * List name and contact numbers for known caregivers / representatives who currently or will assist patient after discharge: CRISTELA REBOLLAR - MOTHER - [phone] * Verbal permission to speak to the caregivers and representatives has been obtained from the patient. Yes * Community resources currently utilized None * Additional services required to return to the preadmission environment? No * Can the patient safely return to the preadmission environment? Yes * Has this patient been hospitalized within the prior 30 days at any hospital? No External Providers External Provider: [facility] Next Contact Date: Service Request Date: Service Type: Resolution: Reviewer: Comments: Last DP export: 08/08/19 1:14 pm Patient Name: RUBEN REBOLLAR Page [phone] at 1434 All edits/amendments must be made on the electronic document DICTATION DATE: 08/08/19 1433 HELMET HAT PUNCHER: ARMANDO 08/08/19 1433 RPT#: [id number] [place] DATE: STATUS: ADM IN [facility] [address] [place] [address] END OF REPORT
--- NOTE | 2019-08-08 19:00 | NUR ---
REPORT RECEIVED. PT RESTING IN BED, DISORIENTED TO TIME AND SITUATION. ASSESSMENT COMPLETE, SEE FLOWSHEET. LT SUBCLAVIAN CVL INFUSING, SEE IV FLOWSHEET. WILL CONTINUE TO MONITOR.
[2019-08-09] VITALS (24 sets, daily range): BP systolic 81–118; BP diastolic 50–68
[2019-08-09 05:51] LABS: BASOPHILS 0.3 % (0-2); EOSINOPHILS 1.8 % (0-7); HEMATOCRIT 28.9 % (42.0-54.0); HEMOGLOBIN 9.3 g/dL (13.5-17.5); IMMATURE GRANULOCYTES 0.5 % (0-5); LYMPHOCYTES 5.8 % (15-50); MCH 26.8 pg (26.0-34.0); MCHC 32.2 g/dL (31.0-37.0); MCV 83.3 fL (80.0-100.0); MEAN PLATELET VOLUME 8.4 fL (7.4-10.4); MONOCYTES 5.4 % (2-11); NEUTROPHILS 86.2 % (40-80); PLATELET COUNT 282 10x3/uL (130-400); RBC 3.47 10x6/uL (4.20-6.10); RDW 14.4 % (11.5-14.5); WBC 10.7 10x3/uL (4.8-10.8)
[2019-08-09 06:05] LABS: ALBUMIN 1.4 g/dL (3.4-5.0); BILIRUBIN - TOTAL 0.34 mg/dL (0.2-1.3); CALCIUM 7.4 mg/dL (8.5-10.1); CARBON DIOXIDE 23.9 mmol/L (21.0-32.0); CREATININE - SERUM 1.1 mg/dL (0.6-1.3); MAGNESIUM - SERUM 1.7 mg/dL (1.8-2.4); PHOSPHOROUS 4.1 mg/dL (2.5-4.9); POTASSIUM - SERUM 4.9 mmol/L (3.5-5.1); PROTEIN - SERUM 4.7 g/dL (6.4-8.2)
--- NOTE | 2019-08-09 15:41 | NUR ---
1500 REPORT RECIEVED AND CARE ASSUMED OF THE PATIENT.. PATIENT IS SEDATED ON VENT TO TRACH.. OPENS EYES AND IS APPROPRIATE IN RESPONSES.. ORAL CARE DONE AT THIS TIME.. SOFT WRIST RESTRAINTS ARE ON ... PEG TO TUBE FEEDING AT 60 CC/HR.. TEMP NOTED AT 101.9 ORAL CULTURES DONE PREVIOUSLY FOR THIS..
--- NOTE | 2019-08-09 17:30 | NUR ---
PT TO HD AT THIS TIME, VIA WHEELCHAIR
--- NOTE | 2019-08-09 17:35 | NUR ---
1700 WITHOUT CHANGES.. 1730 NEW SYRINGE FENTANYLL .. OSMOLITE ADDED TO TUBE FEED BAG
--- NOTE | 2019-08-09 19:00 | NUR ---
REPORT RECEIVED. PT SEDATED ON VENT WITH TRACH. ASSESSMENT COMPLETED, SEE FLOWSHEET. RT SUBCLAVIAN CVL INFUSING, SEE IV FLOWSHEET. WILL CONTINUE TO MONITOR.
[2019-08-10] VITALS (24 sets, daily range): BP systolic 83–117; BP diastolic 44–67
[2019-08-10 06:11] LABS: BASOPHILS 0.2 % (0-2); EOSINOPHILS 2.8 % (0-7); HEMATOCRIT 27.7 % (42.0-54.0); HEMOGLOBIN 8.8 g/dL (13.5-17.5); IMMATURE GRANULOCYTES 0.6 % (0-5); LYMPHOCYTES 5.9 % (15-50); MCH 26.3 pg (26.0-34.0); MCHC 31.8 g/dL (31.0-37.0); MCV 82.9 fL (80.0-100.0); MEAN PLATELET VOLUME 8.2 fL (7.4-10.4); MONOCYTES 6.7 % (2-11); NEUTROPHILS 83.8 % (40-80); PLATELET COUNT 282 10x3/uL (130-400); RBC 3.34 10x6/uL (4.20-6.10); RDW 14.4 % (11.5-14.5)
[2019-08-10 06:36] LABS: ALBUMIN 1.3 g/dL (3.4-5.0); ANION GAP 10.7 mmol/L (8-16); BILIRUBIN - TOTAL 0.35 mg/dL (0.2-1.3); CALCIUM 7.4 mg/dL (8.5-10.1); CARBON DIOXIDE 23.3 mmol/L (21.0-32.0); CREATININE - SERUM 1.1 mg/dL (0.6-1.3); PROTEIN - SERUM 4.7 g/dL (6.4-8.2)
--- NOTE | 2019-08-10 07:05 | NUR ---
REPORT RECIEVED, SHIFT ASSESSMENT COMPLETE, PT IS SEDATED ON VENT, FOLLOWS COMMANDS, ALL PPP, VSS, WILL CON'T TO MONITOR
--- NOTE | 2019-08-10 07:14 | NUR ---
2100 - PT SEDATED ON VENT, NO ACUTE DISTRESS NOTED. 2300 - REASSESSMENT COMPLETED, SEE FLOWSHEET. 0100 - REPOSITIONED FOR COMFORT. 0300 - REASSESSMENT COMPLETED. 0500 - PT AGITATED, C/O PAIN IN ABDOMEN. WILL CONTINUE TO MONITOR.
--- NOTE | 2019-08-10 09:00 | NUR ---
NO VISITORS AT THIS TIME, WILL CON'T TO MONITOR
--- NOTE | 2019-08-10 10:01 | NUR ---
Nutrition follow-up: Trach to vent PEG tube with Osmolite 1.0 idllon @ 60 ml/hr Labs reviewed Wt: 183# Pt tolerating TF at 60 ml/hr; spoke with XAVIER Gallardo re: goal rate of 75 ml/hr. TF to advance to goal rate of 75 ml/hr today. RDN following.
--- NOTE | 2019-08-10 11:22 | NUR ---
REASSESSMENT COMPLETE, NO CHANGES NOTED, PT RESTING AT THIS TIME, VSS, WILL CONT'T TO MONITOR
--- NOTE | 2019-08-10 13:00 | NUR ---
FAMILY AT BEDSIDE, UPDATE GIVEN
--- NOTE | 2019-08-10 15:22 | NUR ---
REASSESSMENT COMPLETE, NO CHANGES NOTED, WILL CON'T TO MONITOR
--- NOTE | 2019-08-10 18:16 | NUR ---
COMPLETE BATH AND LINEN CHANGE
--- NOTE | 2019-08-10 19:00 | NUR ---
SHIFT ASSESSMENT COMPLETED. PT CARE ASSUMED, MONITORS ON AND WORKING, VITALS STABLE. TRACH SECURED, GTUBE NOTED, MONITORS ON AND WORKING, VENT SETTINGS NOTED. WILL CONTINUE TO OBSERVE.
--- NOTE | 2019-08-10 21:00 | NUR ---
PT STARTED THRASHING AROUND IN BED, PRN VERSED GIVEN PER MD ORDERS. PT RESTING CALMLY NOW, MONITORS ON AND WORKING, VSS, WILL CONTINUE TO OBSERVE.
--- NOTE | 2019-08-10 23:00 | NUR ---
PT TURNED AND REPOSITIONED FOR COMFORT, MONITORS ON AND WORKING, VSS, SEE FLOW SHEET FOR FURTHER DETAILS. WILL CONTINUE TO OBSERVE.
[2019-08-11] VITALS (23 sets, daily range): BP systolic 82–162; BP diastolic 49–69
--- NOTE | 2019-08-11 01:00 | NUR ---
NO CHANGES, VSS, PT RESTING CALMLY AT THIS TIME. WILL CONTINUE TO OBSERVE.
--- NOTE | 2019-08-11 07:00 | NUR ---
ASSESSMENT COMPLETE PER FLOWSHEET.
[2019-08-11 07:01] LABS: HEMATOCRIT 26.4 % (42.0-54.0); HEMOGLOBIN 8.8 g/dL (13.5-17.5); MCH 26.8 pg (26.0-34.0); MCHC 33.3 g/dL (31.0-37.0); MEAN PLATELET VOLUME 7.6 fL (7.4-10.4); PLATELET COUNT 301 10x3/uL (130-400); RBC 3.28 10x6/uL (4.20-6.10); RDW 13.7 % (11.5-14.5); WBC 8.6 10x3/uL (4.8-10.8)
[2019-08-11 07:06] LABS: MCV 80.5 fL (80.0-100.0)
[2019-08-11 07:25] LABS: ALBUMIN 1.3 g/dL (3.4-5.0); ALKALINE PHOSPHATASE 70 U/L (30-120); ALT (SGPT) 26 U/L (10-68); BILIRUBIN - TOTAL 0.32 mg/dL (0.2-1.3); CALC OSMOLALITY 265 mosm/kg (275-300); CALCIUM 7.3 mg/dL (8.5-10.1); CARBON DIOXIDE 24.1 mmol/L (21.0-32.0); CHLORIDE - SERUM 101 mmol/L (98-107); GLUCOSE 111 mg/dL (74-106); PROTEIN - SERUM 4.7 g/dL (6.4-8.2); SODIUM 130 mmol/L (136-145); UREA NITROGEN 23 mg/dL (7-18); eGFR NON AFRICAN AMERICAN 82 mL/min (90-120)
--- NOTE | 2019-08-11 10:00 | NUR ---
REPOSITION IN BED PILLOW TO BACK.
[2019-08-11 10:08] LABS: ANISOCYTOSIS OCC; EOSINOPHILS 2 % (0-7); LYMPHOCYTES 5 % (15-50); MONOCYTES 9 % (2-11); NEUTROPHILS 83 % (40-80); PLATELET ESTIMATE NORMAL
--- NOTE | 2019-08-11 11:00 | NUR ---
REASSESSED NO CHANGES NOTED.
--- NOTE | 2019-08-11 14:45 | MORECARE ---
CASE MANAGEMENT DISCHARGE SUMMARY PATIENT: RUBEN REBOLLAR UNIT: [id number] ADM DATE: 07/17/19 AGE: 58 : 64 SEX: M ROOM/BED: D.2301 AUTHOR: DANY,DOC PHYSICIAN: REFERRING PHYSICIAN: ANTONY ABURTO DO DATE OF SERVICE: 08/11/19 Discharge Plan Patient Name: RUBEN REBOLLAR Facility: [facility]:[place] : 1960 Planned Disposition: Home Anticipated Discharge Date: Discharge Date: Expected LOS: 0 Initial Reviewer: [email or web address] Initial Review Date: 07/20/2019 Generated: 08/11/19 3:44 pm DCP- Discharge Planning Updated by [id number]: Karyna Bond on 08/08/19 12:[address] CM contacted LTAC parts counter representative, made her aware of LTAC order. Faxed required information to [phone], Phone #[phone]. DCP- Discharge Planning Updated by [id number]: Karyna Bond on 08/07/19 1:[address] CM met with the patient's mother, Cristela Rebollar, regarding patient choice for [facility] [place]. Patient choice signed and mother expressed appreciation for attempt to get into LTAC. Original given to Cristela. DCP- Discharge Planning Updated by [id number]: Nichol Roth on 08/05/19 4:[address] Spoke with the patient's earlier this afternoon. Discussed LTACH referral. She wants to discuss with the doctor. She is not in agreement with LTACH transfer at this time. She plans to visit in the AM. COVID 19 testing is an requirement. [facility] has short waiting list at this time. DCP- Discharge Planning Updated by [email or web address]: Nichol Roth on 08/05/19 11:[address] CM SPOKE WITH THE PRIMARY NURSE. ADVISED DOCUMENTATION OF NEGATIVE COVID IS REQUIRED FOR REFERRAL TO LTACH. CM DID NOT FIND DOCUMENTATION OF COVID TESTING. DCP- Discharge Planning Updated by [email or web address]: Nichol Roth on 08/05/19 11:[address] TC TO [facility] REGARDING POSSIBLE REFERRAL TODAY. SPOKE W/ [place]. AWAITING CONSENT AND CHOICE FROM THE . WILL REQUIRE NEGATIVE COVID, CULT REPORTS, NSG NOTES X24 HRS, H/P, MAR AND PROGRESS NOTES FROM ALL PROVIDERS. PRESENTLY SHORT WAITING LIST. DCP- Discharge Planning Updated by [id number]: Nichol Roth on 08/05/19 11:[address] TC TO PATIENT'S MOTHER TO DISCUSS AND OBTAIN CONSENT / PREFERENCE FOR LTACH. TELEPHONE THE MOTHER. NO ANSWER. LEFT VOICE MAIL. AWAIT RETURN TELEPHONE CALL. DCP- Discharge Planning Updated by [id number]: Zeina Kapoor on 08/04/19 7:[address] CM received an order for LTACH referral. CM will need to contact patient's Mother to get JAYLA completed. CM will continue to follow and assist as needed with discharge planning / needs DCP- Discharge Planning Updated by [id number]: Zeina Kapoor on 08/02/19 4:[address] CM spoke with Dr. Ivy and she stated that patient is to ill at this time to consider transfer to LTACH facility. CM will continue to follow and assist as needed with discharge / planning. DCP- Discharge Planning Updated by [id number]: Zeina Kapoor on 07/20/19 6:[address] Patient Name: RUBEN REBOLLAR Admission Status: ER Accout number: [id number] Admission Date: 07-17-2019 : 1960 Admission Diagnosis:VENTRAL HERNIA WITHOUT OBSTRUCTION OR GANGRENE Attending: ANTONY ABURTO Current LOS: 3 Anticipated DC Date: Planned Disposition: Home Primary Insurance: [facility] MANAGED MEDICAID Discharge Planning Comments: CM met with patient at bedside after explaining CM role and obtaining verbal consent. Patient lives at home alone where he is independent with his care and plans to return there upon discharge. Patient states he lives in a camper in his mother's yard. Patient feels this would be a safe discharge. CM discussed availability / needs of home health and medical equipment. Patient denies any discharge needs at this time. Patient states he will have his family drive him home upon discharge. CM will continue to follow and assist as needed with discharge planning / needs. City Sanitarian: Zeina Kapoor DCPIA - Discharge Planning Initial Assessment Updated by [email or web address]: Zeina Kapoor on 07/20/19 7:07 pm * Is the patient Alert and Oriented? Yes * How many steps to enter\exit or inside your home? * [facility] * [facility] * Preadmission Environment Home Alone * ADLs Independent * Equipment Walker * List name and contact numbers for known caregivers / representatives who currently or will assist patient after discharge: CRISTELA REBOLLAR - MOTHER - [phone] * Verbal permission to speak to the caregivers and representatives has been obtained from the patient. Yes * Community resources currently utilized None * Additional services required to return to the preadmission environment? No * Can the patient safely return to the preadmission environment? Yes * Has this patient been hospitalized within the prior 30 days at any hospital? No External Providers External Provider: [facility] Contact Date: Service Request Date: Service Type: Resolution: Reviewer: Comments: Last DP export: 08/08/19 1:34 pm Patient Name: RUBEN REBOLLAR Page 11271 at 1445 All edits/amendments must be made on the electronic document DICTATION DATE: 08/11/191443 SALSA DANCE INSTRUCTOR: ARMANDO 08/11/19 1444 RPT#: [id number] DC DATE: STATUS: ADM IN [facility] [address] [place] [address] END OF REPORT
--- NOTE | 2019-08-11 15:00 | NUR ---
BATH GIVEN LINENS CHANGED. HAIR WASHED. REASSESSED NO CHANGES.
--- NOTE | 2019-08-11 17:00 | NUR ---
REPOSITION TO RIGHT SIDE AND PILLOW TO BACK.
--- NOTE | 2019-08-11 19:05 | NUR ---
bedside shift report completed, shift assessment completed, pt is hypotensive, dr yee at bedside new orders received
--- NOTE | 2019-08-11 21:45 | NUR ---
PT RESTING COMFORTABLY HYPOTENSION NOTED MAP >65 - WILL CONTINUE TO CLOSELY MONITOR
--- NOTE | 2019-08-11 22:20 | NUR ---
reassessment completed see flowsheet
[2019-08-12] VITALS (24 sets, daily range): BP systolic 82–133; BP diastolic 46–91
--- NOTE | 2019-08-12 01:00 | NUR ---
CVL DRESSING CHANGE COMPLETED PER POLICY. PT TOLERATED WELL. VSS, HYPOTENSION NOTED MAP > 65 WILL CONTINUE TO MONITOR. PT AWAKES TO SPEECH FOLLOWS COMMANDS
--- NOTE | 2019-08-12 03:07 | NUR ---
REASSESSMENT COMPLETED SEE FLOWSHEET VSS CPOC
[2019-08-12 04:27] LABS: BASOPHILS 0.3 % (0-2); EOSINOPHILS 3.5 % (0-7); HEMATOCRIT 25.9 % (42.0-54.0); HEMOGLOBIN 8.3 g/dL (13.5-17.5); IMMATURE GRANULOCYTES 0.4 % (0-5); LYMPHOCYTES 4.3 % (15-50); MCH 26.1 pg (26.0-34.0); MCV 81.4 fL (80.0-100.0); MONOCYTES 6.8 % (2-11); NEUTROPHILS 84.7 % (40-80); PLATELET COUNT 243 10x3/uL (130-400); RBC 3.18 10x6/uL (4.20-6.10); RDW 14.4 % (11.5-14.5); WBC 9.2 10x3/uL (4.8-10.8)
[2019-08-12 04:58] LABS: ALBUMIN 1.2 g/dL (3.4-5.0); ANION GAP 7.8 mmol/L (8-16); BILIRUBIN - TOTAL 0.32 mg/dL (0.2-1.3); CALCIUM 7.3 mg/dL (8.5-10.1); CARBON DIOXIDE 26.1 mmol/L (21.0-32.0); CREATININE - SERUM 1.1 mg/dL (0.6-1.3); POTASSIUM - SERUM 4.9 mmol/L (3.5-5.1); PROTEIN - SERUM 4.8 g/dL (6.4-8.2)
--- NOTE | 2019-08-12 07:25 | NUR ---
TRACH COLLAR 30% O2 98 HR 86 RR 17 BP 87/57
--- NOTE | 2019-08-12 07:30 | NUR ---
CHANGE TO TRACH COLLAR 30 PERCENT. PT VOMITING. PLACED BACK ON VENT. SEDATED.
--- NOTE | 2019-08-12 08:15 | NUR ---
BATH GIVEN LINENS CHANGE.
--- NOTE | 2019-08-12 08:59 | NUR ---
CPAP 10/5
--- NOTE | 2019-08-12 10:05 | NUR ---
Nutrition follow-up: Osmolite 1.0 dillon stopped this morning 2/2 vomiting. Goal rated was increased to 75 ml/hr to better meet est nutritional needs. Labs reviewed; Na: 129 CPAP trials in progress Trach/PEG Wt: 183# RDN monitoring TF tolerance.
--- NOTE | 2019-08-12 11:00 | NUR ---
REASSESSED. NO CHANGES NOTED.
--- NOTE | 2019-08-12 12:40 | MORECARE ---
CASE MANAGEMENT DISCHARGE SUMMARY PATIENT: RUBEN REBOLLAR UNIT: [id number] ADM DATE: 07/17/19 AGE: 58 : 64 SEX: M ROOM/BED: D.2301 AUTHOR: DANY,DOC PHYSICIAN: REFERRING PHYSICIAN: ANTONY ABRUTO DO DATE OF SERVICE: 08/12/19 Discharge Plan Patient Name: RUBEN REBOLLAR Facility: [facility]:[place] : 1960 Planned Disposition: Home Anticipated Discharge Date: Discharge Date: Expected LOS: 0 Initial Reviewer: [email or web address] Initial Review Date: 07/20/2019 Generated: 08/12/19 1:39 pm DCP- Discharge Planning Updated by [email or web address]: Karyna Bond on 08/08/19 12:[address] CM contacted LTAC publications sales representative, made her aware of LTAC order. Faxed required information to [phone], Phone #[phone]. DCP- Discharge Planning Updated by [email or web address]: Karyna Bond on 08/07/19 1:[address] CM met with the patient's mother, Cristela Rebollar, regarding patient choice for [facility] [place]. Patient choice signed and mother expressed appreciation for attempt to get into LTAC. Original given to Cristela. DCP- Discharge Planning Updated by [id number]: Nichol Roth on 08/05/19 4:[address] Spoke with the patient's earlier this afternoon. Discussed LTACH referral. She wants to discuss with the doctor. She is not in agreement with LTACH transfer at this time. She plans to visit in the AM. COVID 19 testing is an requirement. [facility] has short waiting list at this time. DCP- Discharge Planning Updated by [email or web address]: Nichol Roth on 08/05/19 11:[address] CM SPOKE WITH THE PRIMARY NURSE. ADVISED DOCUMENTATION OF NEGATIVE COVID IS REQUIRED FOR REFERRAL TO LTACH. CM DID NOT FIND DOCUMENTATION OF COVID TESTING. DCP- Discharge Planning Updated by [id number]: Nichol Roth on 08/05/19 11:[address] TC TO [facility] REGARDING POSSIBLE REFERRAL TODAY. SPOKE W/ [place]. AWAITING CONSENT AND CHOICE FROM THE . WILL REQUIRE NEGATIVE COVID, CULT REPORTS, NSG NOTES X24 HRS, H/P, MAR AND PROGRESS NOTES FROM ALL PROVIDERS. PRESENTLY SHORT WAITING LIST. DCP- Discharge Planning Updated by [id number]: Nichol Roth on 08/05/19 11:[address] TC TO PATIENT'S MOTHER TO DISCUSS AND OBTAIN CONSENT / PREFERENCE FOR LTACH. TELEPHONE THE MOTHER. NO ANSWER. LEFT VOICE MAIL. AWAIT RETURN TELEPHONE CALL. DCP- Discharge Planning Updated by [email or web address]: Zeina Kapoor on 08/04/19 7:[address] CM received an order for LTACH referral. CM will need to contact patient's Mother to get JAYLA completed. CM will continue to follow and assist as needed with discharge planning / needs DCP- Discharge Planning Updated by [id number]: Zeina Kapoor on 08/02/19 4:[address] CM spoke with Dr. Ivy and she stated that patient is to ill at this time to consider transfer to LTACH facility. CM will continue to follow and assist as needed with discharge / planning. DCP- Discharge Planning Updated by [id number]: Zeina Kapoor on 07/20/19 6:[address] Patient Name: RUBEN REBOLLAR Admission Status: ER Accout number: [id number] Admission Date: 07-17-2019 : 1960 Admission Diagnosis:VENTRAL HERNIA WITHOUT OBSTRUCTION OR GANGRENE Attending: ANTONY ABURTO Current LOS: 3 Anticipated DC Date: Planned Disposition: Home Primary Insurance: [facility] MANAGED MEDICAID Discharge Planning Comments: CM met with patient at bedside after explaining CM role and obtaining verbal consent. Patient lives at home alone where he is independent with his care and plans to return there upon discharge. Patient states he lives in a camper in his mother's yard. Patient feels this would be a safe discharge. CM discussed availability / needs of home health and medical equipment. Patient denies any discharge needs at this time. Patient states he will have his family drive him home upon discharge. CM will continue to follow and assist as needed with discharge planning / needs. Surplus Property Disposal Agent: Zeina Kapoor DCPIA - Discharge Planning Initial Assessment Updated by [email or web address]: Zeina Kapoor on 07/20/19 7:07 pm * Is the patient Alert and Oriented? Yes * How many steps to enter\exit or inside your home? * [facility] * [facility] * Preadmission Environment Home Alone * ADLs Independent * Equipment Walker * List name and contact numbers for known caregivers / representatives who currently or will assist patient after discharge: CRISTELA REBOLLAR - MOTHER - [phone] * Verbal permission to speak to the caregivers and representatives has been obtained from the patient. Yes * Community resources currently utilized None * Additional services required to return to the preadmission environment? No * Can the patient safely return to the preadmission environment? Yes * Has this patient been hospitalized within the prior 30 days at any hospital? No External Providers External Provider: [facility] Next Contact Date: Service Request Date: Service Type: Resolution: Reviewer: Comments: Last DP export: 08/11/19 1:45 p Patient Name: RUBEN REBOLLAR Page [phone] at 1240 All edits/amendments must be made on the electronic document DICTATION DATE: 08/12/19 1239 SPA CONCIERGE: ARMANDO 08/12/19 1239 RPT#: [id number] DC DATE: STATUS: ADM IN [facility] [address] [place] [address] END OF REPORT
--- NOTE | 2019-08-12 13:01 | NUR ---
DR PAGAN NOTIFIED OF KUB RESULTS AND PT VOMITING. TUBE FEEDING OFF. PEG TO GRAVITY KUB ORDERED IN AM.
--- NOTE | 2019-08-12 15:00 | NUR ---
REASSESSED NO CHANGES NOTED
--- NOTE | 2019-08-12 15:45 | MORECARE ---
CASE MANAGEMENT DISCHARGE SUMMARY PATIENT: RUBEN REBOLLAR UNIT: [id number] ADM DATE: 07/17/19 AGE: 58 : 64 SEX: M ROOM/BED: D.2301 AUTHOR: DANY,DOC PHYSICIAN: REFERRING PHYSICIAN: ANTONY ABURTO DO DATE OF SERVICE: 08/12/19 Discharge Plan Patient Name: RUBEN REBOLLAR Facility: [facility]:[place] : 1960 Planned Disposition: Home Anticipated Discharge Date: Discharge Date: Expected LOS: 0 Initial Reviewer: [id number] Initial Review Date: 07/20/2019 Generated: 08/12/19 4:45 pm Comments DCP- Discharge Planning Updated by [id number]: Zeina Kapoor on 08/12/19 2:[address] CM received notification from [facility] that they do not accept patient's insurance. CM then called [facility], [facility], [facility]ACH facilities to see if they accepted insurance. They all denied his insurance. [facility] in [place] does accept insurance. CM called and spoke with patient's mother Cristela Rebollar and she agrees to [facility] for placement. JAYLA completed. CM called [place] with [facility] back and faxed referral. Delilah stated that it would probably be Thursday before he could transfer d/t awaiting auth from insurance. CM supplied [place] with ICU and CM direct number if needed over weekend. DCP- Discharge Planning Updated by [email or web address]: Karyna Bond on 08/08/19 12:[address] CM contacted LTAC dealer compliance representative, made her aware of LTAC order. Faxed required information to [phone], Phone #[phone]. DCP- Discharge Planning Updated by [id number]: Karyna Bond on 08/07/19 1:[address] CM met with the patient's mother, Cristela Rebollar, regarding patient choice for [facility] [place]. Patient choice signed and mother expressed appreciation for attempt to get into LTAC. Original given to Cristela. DCP- Discharge Planning Updated by [id number]: Nichol Roth on 08/05/19 4:[address] Spoke with the patient's earlier this afternoon. Discussed LTACH referral. She wants to discuss with the doctor. She is not in agreement with LTACH transfer at this time. She plans to visit in the AM. COVID 19 testing is an requirement. [facility] short waiting list at this time. DCP- Discharge Planning Updated by [id number]: Nichol Roth on 08/05/19 11:[address] CM SPOKE WITH THE PRIMARY NURSE. ADVISED DOCUMENTATION OF NEGATIVE COVID IS REQUIRED FOR REFERRAL TO LTACH. CM DID NOT FIND DOCUMENTATION OF COVID TESTING. DCP- Discharge Planning Updated by [email or web address]: Nichol Roth on 08/05/19 11:[address] TC [address] [facility] REGARDING POSSIBLE REFERRAL TODAY. SPOKE W/ [facility]. AWAITING CONSENT AND CHOICE FROM THE . WILL REQUIRE NEGATIVE COVID, CULT REPORTS, NSG NOTES X24 HRS, H/P, MAR AND PROGRESS NOTES FROM ALL PROVIDERS. PRESENTLY SHORT WAITING LIST. DCP- Discharge Planning Updated by [id number]: Nichol Roth on 08/05/19 11:[address] TC TO PATIENT'S MOTHER TO DISCUSS AND OBTAIN CONSENT / PREFERENCE FOR LTACH. TELEPHONE THE MOTHER. NO ANSWER. LEFT VOICE MAIL. AWAIT RETURN TELEPHONE CALL. DCP- Discharge Planning Updated by [id number]: Zeina Kapoor on 08/04/19 7:[address] CM received an order for LTACH referral. CM will need to contact patient's Mother to get JAYLA completed. CM will continue to follow and assist as needed with discharge planning / needs DCP- Discharge Planning Updated by [email or web address]: Zeina Kapoor on 08/02/19 4:[address] CM spoke with Dr. Ivy and she stated that patient is to ill at this time to consider transfer to LTACH facility. CM will continue to follow and assist as needed with discharge / planning. DCP- Discharge Planning Updated by [id number]: Zeina Kapoor on 07/20/19 6:[address] Patient Name: RUBEN REBOLLAR Admission Status: ER Accout number: [id number] Admission Date: 07-17-2019 : 1960 Admission Diagnosis:VENTRAL HERNIA WITHOUT OBSTRUCTION OR GANGRENE Attending: ANTONY ABURTO Current LOS: 3 Anticipated DC Date: Planned Disposition: Home Primary Insurance: [employer] MANAGED MEDICAID Discharge Planning Comments: CM met with patient at bedside after explaining CM role and obtaining verbal consent. Patient lives at home alone where he is independent with his care and plans to return there upon discharge. Patient states he lives in a camper in his mother's yard. Patient feels this would be a safe discharge. CM discussed availability / needs of home health and medical equipment. Patient denies any discharge needs at this time. Patient states he will have his family drive him home upon discharge. CM will continue to follow and assist as needed with discharge planning / needs. Production Material Handler: Zeina MELGAR - Discharge Planning Initial Assessment Updated by [id number]: Zeina Kapoor on 07/20/19 7:07 pm * Is the patient Alert and Oriented? Yes * How many steps to enter\exit or inside your home? * [facility]CP [facility] * [facility] * Preadmission Environment Home Alone * ADLs Independent * Equipment Walker * List name and contact numbers for known caregivers / representatives who currently or will assist patient after discharge: CRISTELA REBOLLAR - [facility] - [phone] * Verbal permission to speak to the caregivers and representatives has been obtained from the patient. Yes * Community resources currently utilized None * Additional services required to return to the preadmission environment? No * Can the patient safely return to the preadmission environment? Yes * Has this patient been hospitalized within the prior 30 days at any hospital? No Last DP export: 08/12/19 11:40 a Patient Name: RUBEN REBOLLAR Page 88003 at 7105 All edits/amendments must be made on the electronic document DICTATION DATE: 08/12/19 1540 MANUFACTURERS SERVICE REPRESENTATIVE: ARMANDO 08/12/19 1546 RPT#: [id number] GA DATE: STATUS: ADM IN [facility] [address] [place] [address] END OF REPORT
[2019-08-12 16:15] LABS: TOTAL IRON BIND CAPACITY 142 ug/dl (260-445)
[2019-08-12 16:34] LABS: % SATURATION 7 % (15-55); IRON 11 ug/dl (35-150); UNSAT IRON BIND CAPACITY 131 ug/dl (150-375)
--- NOTE | 2019-08-12 17:00 | NUR ---
HAIR WASHED. BATH GIVEN LINEN CHANGED.
--- NOTE | 2019-08-12 19:10 | NUR ---
BEDSIDE SHIFT REPORT COMPLETED AT THIS TIME, PT AWAKE AND ALERT AGITATED, MOUTHING CUSS WORDS AND ATTEMPTING TO REMOVE RESTRAINTS, REORIENTED TO SITUATION. TUBE FEED OFF AT THIS TIME, PEG CONNECTED TO GRAVITY DRAINAGE. PT RESTRAINTS RESECURED. VSS CPOC
--- NOTE | 2019-08-12 21:30 | NUR ---
PT INCREASING AGITATED, REORIENTATION EFFORTS UNSUCCESFUL RR > 40 - PT UNABLE TO FOLLOW DIRECTION TO DECREASE RR. DANGEROUS - FIGHTING RESTRAINTS AND ATTEMPTING TO PULL TUBES AND LINES. PRN SEDATION MEDICATION GIVEN AT THIS TIME. WILL CONTINUE TO CLOSELY MONITOR
--- NOTE | 2019-08-12 22:46 | NUR ---
PATIENT RESTING COMFORTABLY RT AT BEDSIDE FOR VENT CHANGES. VSS WILL CONTINUE TO CLOSELY MONITOR
--- NOTE | 2019-08-12 22:48 | NUR ---
REASSESSMENT COMPLETED, VSS, PATIENT CALM AND COOPERATIVE, OPENS EYES TO SPEECH, FOLLOWS COMMANDS, DRIFTS OFF EASILY. SEE FLOWSHEET FOR FULL ASSESSMENT
[2019-08-13] VITALS (24 sets, daily range): BP systolic 90–124; BP diastolic 50–85
--- NOTE | 2019-08-13 02:38 | NUR ---
PT AGITATED ATTEMPTING TO PULL ON TRACH WHILE RESTRAINED. PRN MEDICATION RECEIVED SEE FLOWSHEET
--- NOTE | 2019-08-13 04:01 | NUR ---
REASSESSMENT COMPLETED SEE FLOWSHEET
[2019-08-13 04:59] LABS: BASOPHILS 0.4 % (0-2); EOSINOPHILS 2.3 % (0-7); HEMATOCRIT 26.8 % (42.0-54.0); HEMOGLOBIN 8.6 g/dL (13.5-17.5); IMMATURE GRANULOCYTES 0.5 % (0-5); LYMPHOCYTES 5.9 % (15-50); MCHC 32.1 g/dL (31.0-37.0); MEAN PLATELET VOLUME 8.2 fL (7.4-10.4); MONOCYTES 6.3 % (2-11); NEUTROPHILS 84.6 % (40-80); PLATELET COUNT 262 10x3/uL (130-400); RBC 3.31 10x6/uL (4.20-6.10); RDW 14.4 % (11.5-14.5); WBC 10.3 10x3/uL (4.8-10.8)
--- NOTE | 2019-08-13 05:15 | NUR ---
CHG BATH COMPLETED AT THIS TIME, KELLEY CARE AND FULL LINEN CHANGE
[2019-08-13 05:46] LABS: ALBUMIN 1.2 g/dL (3.4-5.0); ALKALINE PHOSPHATASE 84 U/L (30-120); ALT (SGPT) 30 U/L (10-68); AMYLASE - SERUM 31 U/L (25-115); BILIRUBIN - TOTAL 0.34 mg/dL (0.2-1.3); CALC OSMOLALITY 267 mosm/kg (275-300); CALCIUM 7.5 mg/dL (8.5-10.1); CARBON DIOXIDE 26.9 mmol/L (21.0-32.0); CHLORIDE - SERUM 104 mmol/L (98-107); CREATININE - SERUM 0.9 mg/dL (0.6-1.3); GLUCOSE 87 mg/dL (74-106); LIPASE 143 U/L (73-393); MAGNESIUM - SERUM 1.7 mg/dL (1.8-2.4); PHOSPHOROUS 4.5 mg/dL (2.5-4.9); POTASSIUM - SERUM 4.4 mmol/L (3.5-5.1); PROTEIN - SERUM 4.9 g/dL (6.4-8.2); SODIUM 134 mmol/L (136-145); eGFR NON AFRICAN AMERICAN > 90 mL/min (90-120)
[2019-08-13 05:49] LABS: UREA NITROGEN 15 mg/dL (7-18)
--- NOTE | 2019-08-13 07:47 | NUR ---
0700 REPORT RECIEVED AND CARE ASSUMED OF PATIENT.. SEE FLOW SHEET FOR SHIFT ASSESMENT.. PT IS AWAKE ON VENT TO TRACH.. DOES NOT FOLLOW COMMANDS APPROPRIATLY.. IS IN SOFT WRIST RESTRAINTS.. 0730 PT IS RESTLESS AND PULLED AT KELLEY DISCONNECTING THE TUBE FROM THE KELLEY CATH ITSELF.. VERSED IS GIVEN.. PT IS CLEANED AND KELLEY RECONNECTED..
--- NOTE | 2019-08-13 10:21 | NUR ---
1000 PT RECIEVED A PARTIAL BATH AND LINEN CHANGE .. PEG TUBE HAD BECOME DISLODGED AND LEAKING ON BED...MEDS GIVEN PER E MAR
[2019-08-13 17:08] LABS: AMPHOTERICIN B MIC 1.0 ug/mL (())
--- NOTE | 2019-08-13 18:21 | NUR ---
1100 MORE CALM AT THIS TIME..DR GUZMAN IN TO SEE PATIENT AND BRONCH ORDERED.. DR LINDO HERE UPDATE IS GIVEN.. 1215 MOTHER IN TO SEE PATIENT AND SIGNED PERMIT FOR BRONCH.. 1230 BRONCH AT BEDSIDE WITH RT AND DR GUZMAN 1300 [PT IS SLEPING AT THIS TIME.. 1400 WITHOUT CHANGES.. 1500 ASSESMENT DONE.. PT REMAINS CALM AND SLEEPING AT THIS TIME.. 1600 I AND O DONE 1700 WITHOUT CHANGES..REMAINS ON VENT WITH SOFT WRIST RESTRAINTS IN PLACE 1800 MOTHER CALLED AND UPDATE GIVEN..
--- NOTE | 2019-08-13 18:45 | NUR ---
BEDSIDE SHIFT REPORT COMPLETED SEE FLOWSHEET PT RESTING COMFORTABLY VENT ON CPAP MODE AT THIS TIME. VSS CPOC
--- NOTE | 2019-08-13 21:30 | NUR ---
LINES CHANGES PER POLICY ALL HS MEDICATIONS RECEIVED. VSS CPOC
--- NOTE | 2019-08-13 23:09 | NUR ---
REASSESSMENT COMPLETED SEE FLOWSHEET
[2019-08-14] VITALS (24 sets, daily range): BP systolic 84–131; BP diastolic 9–78
--- NOTE | 2019-08-14 03:15 | NUR ---
REASSESSMENT COMPLETED
--- NOTE | 2019-08-14 04:45 | NUR ---
FULL LINEN CHANGE COMPLETED PT AGITATED - PRN MEDICATION RECEIVED SEE MAR FOR ADMINISTRATION
[2019-08-14 05:02] LABS: BASOPHILS 0.4 % (0-2); EOSINOPHILS 3.9 % (0-7); HEMATOCRIT 24.8 % (42.0-54.0); HEMOGLOBIN 7.9 g/dL (13.5-17.5); IMMATURE GRANULOCYTES 0.6 % (0-5); LYMPHOCYTES 4.1 % (15-50); MCH 25.9 pg (26.0-34.0); MCHC 31.9 g/dL (31.0-37.0); MCV 81.3 fL (80.0-100.0); MONOCYTES 7.6 % (2-11); NEUTROPHILS 83.4 % (40-80); PLATELET COUNT 272 10x3/uL (130-400); RBC 3.05 10x6/uL (4.20-6.10); RDW 14.6 % (11.5-14.5)
[2019-08-14 05:16] LABS: ALKALINE PHOSPHATASE 68 U/L (30-120); ALT (SGPT) 24 U/L (10-68); BILIRUBIN - TOTAL 0.41 mg/dL (0.2-1.3); CALCIUM 7.5 mg/dL (8.5-10.1); CARBON DIOXIDE 25.1 mmol/L (21.0-32.0); CHLORIDE - SERUM 107 mmol/L (98-107); CREATININE - SERUM 0.8 mg/dL (0.6-1.3); GLUCOSE 77 mg/dL (74-106); MAGNESIUM - SERUM 2.1 mg/dL (1.8-2.4); PHOSPHOROUS 4.4 mg/dL (2.5-4.9); POTASSIUM - SERUM 4.1 mmol/L (3.5-5.1); PROTEIN - SERUM 4.9 g/dL (6.4-8.2); SODIUM 138 mmol/L (136-145); eGFR NON AFRICAN AMERICAN > 90 mL/min (90-120)
[2019-08-14 05:19] LABS: ALBUMIN 1.7 g/dL (3.4-5.0); CALC OSMOLALITY 273 mosm/kg (275-300); UREA NITROGEN 9 mg/dL (7-18)
--- NOTE | 2019-08-14 15:25 | NUR ---
0700 REPORT RECIEVED AND CARE ASSUMED OF PATIENT.. SEE FLOW SHEET FOR SHIFT ASSESMENT.. PT REMAINS ON VENT TO TRACH.. SC CVL 0845 ROSE WITH RENAL IN TO SEE PATIENT..UPDATE IS GIVEN ORDERS RECIEVED.. 0900 D5W STARTED AND NS DCd PER ORDER.. [address] WOODS IN TO SEE PATIENT AND PEG CLAMPED UNTIL TUBE FEEDING IS RESTARTED.. 1000 LAB IN AND BLOOD DRAWN FROMN CVL FOR T AND C 1130 LAB CALLED AND BLOOD READY PT HAS TEMP OF 100.3 CHAITANYA HANIG BEEPED... 1145 ORDERS FOR BENADRYLL AND TYLENOL RECIEVED TO PRE MED PRIOR TO BLOOD TRANSFUSION.. 1230 DR GUZMAN IN TO SEE PATIENT, MOTHER IN TO SEE PATIENT SPOKE WITH DR GUZMAN AT BEDSIDE.. 1330 PRBC INFUSING TEMP HAS DECREASED.. SLEEPING SOUNDLY SINCE RECEIVING BENADRYLL PRBC CONITNUE TO INFUSE... 1430 PRBC CONTINUE.. REZTING QUIETLY... 1500 PRBC THRU INFUSING.. PT REMAINS SLEEPING..
--- NOTE | 2019-08-14 18:30 | NUR ---
1600 PT REMAINS WITHOUT CHANGES 1700 I AND O DONE 1800 FENTANYLL ORDER RENEWED AND SYRINGE TO LONG WALL MINING MACHINE TENDER DONE..
[2019-08-15] VITALS (24 sets, daily range): BP systolic 90–122; BP diastolic 52–66
[2019-08-15 04:27] LABS: BASOPHILS 0.5 % (0-2); EOSINOPHILS 3.5 % (0-7); HEMATOCRIT 28.2 % (42.0-54.0); HEMOGLOBIN 8.9 g/dL (13.5-17.5); IMMATURE GRANULOCYTES 0.6 % (0-5); LYMPHOCYTES 4.2 % (15-50); MCH 25.8 pg (26.0-34.0); MCHC 31.6 g/dL (31.0-37.0); MCV 81.7 fL (80.0-100.0); MEAN PLATELET VOLUME 7.9 fL (7.4-10.4); MONOCYTES 5.7 % (2-11); NEUTROPHILS 85.5 % (40-80); PLATELET COUNT 293 10x3/uL (130-400); RBC 3.45 10x6/uL (4.20-6.10); RDW 14.9 % (11.5-14.5); WBC 10.6 10x3/uL (4.8-10.8)
[2019-08-15 05:07] LABS: ALKALINE PHOSPHATASE 57 U/L (30-120); ALT (SGPT) 21 U/L (10-68); BILIRUBIN - TOTAL 0.48 mg/dL (0.2-1.3); CALC OSMOLALITY 265 mosm/kg (275-300); CALCIUM 7.4 mg/dL (8.5-10.1); CARBON DIOXIDE 26.8 mmol/L (21.0-32.0); CHLORIDE - SERUM 104 mmol/L (98-107); GLUCOSE 98 mg/dL (74-106); MAGNESIUM - SERUM 1.9 mg/dL (1.8-2.4); PHOSPHOROUS 4.4 mg/dL (2.5-4.9); POTASSIUM - SERUM 3.8 mmol/L (3.5-5.1); SODIUM 134 mmol/L (136-145); UREA NITROGEN 8 mg/dL (7-18); eGFR NON AFRICAN AMERICAN 82 mL/min (90-120)
--- NOTE | 2019-08-15 05:25 | NUR ---
1900-ASSESSMENT COMPLETED. CONT ON CPAP TRIALS, PEEP 5, FIO2 40%, RR 26. REPOSITIONED. 1999- PATIENT WAS CHANGED OVER TO ASSIST CONTROL SETTING BY RT. 2099-REPOSITIONED, ORAL CARE PROVIDED. 0-STARTED TUBE FEEDING PER ORDERS. 4950-[id number] COMPLETED. NO CHANGES SINCE LAST ASSESSMENT. 0100-REPOSITIONED, ORAL CARE PROVIDED. VSS. [id number]. NO CHANGES REPOSITIONED, ORAL CARE PROVIDED. 0500-REPOSITIONED, ORAL CARE PROVIDED. CONT ON VENT.
--- NOTE | 2019-08-15 06:31 | NUR ---
CHG BATH AND COMPLETE LINEN CHANGE. CHANGED ALL WOUND DRESSINGS ALSO
--- NOTE | 2019-08-15 10:15 | NUR ---
Nutrition follow-up: Pt s/p resovled ileus Osmolite 1.0 dillon restarted and is infusing via PEG tube @ 40 ml/hr Labs reviewed Wt: 193# +BM Recommend increasing TF to goal rate of 75 ml/hr to better meet est nutritional needs. RDN following.
--- NOTE | 2019-08-15 11:12 | NUR ---
0700 BEDSIDE REPORT RECEIVED FROM ZECHARIAH PARKCOMPOUND SPECIALIST COMPLELTE DRESSING X 2 TO ABDOMIN CDI WITH NO DRAINAGE NOTED PEG SITE SATIAFACTORY OSMOLYTE FEEDING TO PEG [id number] AT 40ML/HOUR RESIDUAL 20ML NOTED
--- NOTE | 2019-08-15 11:14 | NUR ---
0900 MOTHER OF PATIENT AT BEDSIDE EMOTIONAL SUPPORT GIVEN PROVIDED UPDATE SHE HAD A LETTER TO GIVE TO DEBRA MEDINA, CHIP SEPARATOR SABRINA SPOKE WITH HER RE LETTER. DAMARIS AT [facility] WHERE PT IS TO BE TRANSFERRED CALLED WANTING UPDATE. RN PROVIDED ANSWERS REGARDING PATIENT CHANGES FROM OVER THE WEEKEND. PT RREMAINS ON VENT TO TRACH 8.0 TOLLERATING WELL
--- NOTE | 2019-08-15 14:04 | NUR ---
1300 REASSURED PATIENT POSSIBLE TRANSFER TODAY OR TOMORROW
--- NOTE | 2019-08-15 18:21 | NUR ---
1500 PATIENTS MOTHER CALLED FOR UPDATE ON TRANSFER. EXPLAINED THAT I HAVENTS HEARD WORD OF SON BEING ACCEPTED OF NOW
--- NOTE | 2019-08-15 18:23 | NUR ---
1700 VERSED 2MG IV GIVEN FOR ANXIETY AND THRASHING IN BED
--- NOTE | 2019-08-15 19:00 | NUR ---
PT INTUBATED AND SEDATED, WILL OPEN EYES AND FOLLOW MOST COMMANDS. INTUABTED VIA TRACH, LUNG SOUNDS CRACKLES/DINISHED. FIO2 40, SPO2 98. SUCTIONED VIA TRACH. S1S2 HEARD, PERIPHERAL PULSES PRESENT. BOWEL SOUNDS ACTIVE IN ALL QUADRANTS, PEG INTACT. KELLEY CATH INTACT WITH YELLOW URINE TO BEDSIDE DRAIANGE. PT REPOSITIONED WITH PROMINENCES BRIDGED. VSS. CPOC.
--- NOTE | 2019-08-15 21:00 | NUR ---
PT REPOSITIONED WITH PROMINENCES BRIDGED. TRACH CARE PROVIDED. VSS. CPOC.
--- NOTE | 2019-08-15 23:00 | NUR ---
REASSESSMENT COMPLETE, PT RESTLESS, REPOSITIONED FOR COMFORT WITH PARTIAL LINEN CHANGE. PROMINENCES BRIDGED. VSS, NO S/S OF PAIN. CPOC.
[2019-08-16] VITALS (24 sets, daily range): BP systolic 90–124; BP diastolic 56–88
--- NOTE | 2019-08-16 01:00 | NUR ---
NO CHANGES AT THIS TIME. PT REPOSITIONED, PROMINENCES BRIDGED, LINENS CHANGED. VSS, CPOC.
--- NOTE | 2019-08-16 03:00 | NUR ---
REASSESSMENT COMPLETE, SEE FLOWSHEET FOR ALL FINDINGS. PT THRASHES LEGS FREQUENTLY. REPOSITIONED FOR COMFORT. SXN VIA TRACH PROVIDED. VSS. CPOC.
[2019-08-16 05:14] LABS: BASOPHILS 0.3 % (0-2); EOSINOPHILS 4.6 % (0-7); HEMATOCRIT 26.8 % (42.0-54.0); HEMOGLOBIN 8.4 g/dL (13.5-17.5); IMMATURE GRANULOCYTES 1.5 % (0-5); LYMPHOCYTES 4.5 % (15-50); MCH 25.5 pg (26.0-34.0); MCHC 31.3 g/dL (31.0-37.0); MCV 81.5 fL (80.0-100.0); MEAN PLATELET VOLUME 7.6 fL (7.4-10.4); MONOCYTES 8.7 % (2-11); NEUTROPHILS 80.4 % (40-80); PLATELET COUNT 270 10x3/uL (130-400); RBC 3.29 10x6/uL (4.20-6.10); RDW 15.2 % (11.5-14.5)
[2019-08-16 05:42] LABS: ALBUMIN 2.3 g/dL (3.4-5.0); ANION GAP 8.3 mmol/L (8-16); BILIRUBIN - TOTAL 0.51 mg/dL (0.2-1.3); CALCIUM 7.4 mg/dL (8.5-10.1); CARBON DIOXIDE 27.7 mmol/L (21.0-32.0); CREATININE - SERUM 1.1 mg/dL (0.6-1.3); MAGNESIUM - SERUM 1.8 mg/dL (1.8-2.4); PHOSPHOROUS 4.7 mg/dL (2.5-4.9)
--- NOTE | 2019-08-16 08:48 | NUR ---
0700 BEDSIDE REPORT RECEIVED FROM NIDHI PARKNAPHTHALENE STILL OPERATOR COMPLETE RESTLESS AND SQUIRMING IN BED REMAINS ON FENTANYL INFUSIION AT 150 MCG/HOUR
--- NOTE | 2019-08-16 08:57 | NUR ---
0731 AGITATED VERSED 2MG IV GIVEN
--- NOTE | 2019-08-16 08:58 | NUR ---
0750 RELAXED AND CALM RESTIING WITH EYES CLOSED PATIENTS MOTHER CALLED AND UPDATE PROVIDED EMOTIIONAL SUPPORT GIVEN
--- NOTE | 2019-08-16 12:38 | MORECARE ---
CASE MANAGEMENT DISCHARGE SUMMARY PATIENT: RUBEN REBOLLAR UNIT: [id number] ADM DATE: 07/17/19 AGE: 58 : 64 SEX: M ROOM/BED: D.2301 AUTHOR: DANY,DOC PHYSICIAN: REFERRING PHYSICIAN: ANTONY ABURTO DO DATE OF SERVICE: 08/16/19 Discharge Plan Patient Name: RUBEN REBOLLAR Facility: [facility]:[place] : 1960 Planned Disposition: Home Anticipated Discharge Date: Discharge Date: Expected LOS: 0 Initial Reviewer: [email or web address] Initial Review Date: 07/20/2019 Generated: 08/16/19 1:38 pm DCP- Discharge Planning Updated by [id number]: Zeina Kapoor on 08/12/19 2:[address] CM received notification from [facility] that they do not accept patient's insurance. CM then called [facility], [facility], [facility] facilities to see if they accepted insurance. They all denied his insurance. [facility] in [place] does accept insurance. CM called and spoke with patient's mother Cristela Rebollar and she agrees to [facility] for placement. JAYLA completed. CM called [place] with [facility] back and faxed referral. Delilah stated that it would probably be Thursday before he could transfer d/t awaiting auth from insurance. CM supplied [place] with ICU and CM direct number if needed over weekend. DCP- Discharge Planning Updated by [email or web address]: Karyna Bond on 08/08/19 12:[address] CM contacted LTAC cash applications representative, made her aware of LTAC order. Faxed required information to [phone], Phone #[phone]. DCP- Discharge Planning Updated by [id number]: Karyna Bond on 08/07/19 1:[address] CM met with the patient's mother, Cristela Rebollar, regarding patient choice for [facility] [place]. Patient choice signed and mother expressed appreciation for attempt to get into LTAC. Original given to Cristela. DCP- Discharge Planning Updated by [email or web address]: Nichol Roth on 08/05/19 4:[address] Spoke with the patient's earlier this afternoon. Discussed LTACH referral. She wants to discuss with the doctor. She is not in agreement with LTACH transfer at this time. She plans to visit in the AM. COVID 19 testing is an requirement. [facility] has short waiting list at this time. DCP- Discharge Planning Updated by [id number]: Nichol Roth on 08/05/19 11:[address] CM SPOKE WITH THE PRIMARY NURSE. ADVISED DOCUMENTATION OF NEGATIVE COVID IS REQUIRED FOR REFERRAL TO LTACH. CM DID NOT FIND DOCUMENTATION OF COVID TESTING. DCP- Discharge Planning Updated by [id number]: Nichol Roth on 08/05/19 11:[address] TC [address] [facility] REGARDING POSSIBLE REFERRAL TODAY. SPOKE W/ LATRICE. AWAITING CONSENT AND CHOICE FROM THE . WILL REQUIRE NEGATIVE COVID, CULT REPORTS, NSG NOTES X24 HRS, H/P, MAR AND PROGRESS NOTES FROM ALL PROVIDERS. PRESENTLY SHORT WAITING LIST. DCP- Discharge Planning Updated by [id number]: Nichol Roth on 08/05/19 11:[address] TC TO PATIENT'S MOTHER TO DISCUSS AND OBTAIN CONSENT / PREFERENCE FOR LTACH. TELEPHONE THE MOTHER. NO ANSWER. LEFT VOICE MAIL. AWAIT RETURN TELEPHONE CALL. DCP- Discharge Planning Updated by [id number]: Zeina Kapoor on 08/04/19 7:[address] CM received an order for LTACH referral. CM will need to contact patient's Mother to get JAYLA completed. CM will continue to follow and assist as needed with discharge planning / needs DCP- Discharge Planning Updated by [email or web address]: Zeina Kapoor on 08/02/19 4:[address] CM spoke with Dr. Ivy and she stated that patient is to ill at this time to consider transfer to LTACH facility. CM will continue to follow and assist as needed with discharge / planning. DCP- Discharge Planning Updated by [id number]: Zeina Kapoor on 07/20/19 6:[address] Patient Name: RUBEN REBOLLAR Admission Status: ER Accout number: [id number] Admission Date: 07-17-2019 : 1960 Admission Diagnosis:VENTRAL HERNIA WITHOUT OBSTRUCTION OR GANGRENE Attending: ANTONY ABURTO Current LOS: 3 Anticipated DC Date: Planned Disposition: Home Primary Insurance: [facility] Discharge Planning Comments: CM met with patient at bedside after explaining CM role and obtaining verbal consent. Patient lives at home alone where he is independent with his care and plans to return there upon discharge. Patient states he lives in a camper in his mother's yard. Patient feels this would be a safe discharge. CM discussed availability / needs of home health and medical equipment. Patient denies any discharge needs at this time. Patient states he will have his family drive him home upon discharge. CM will continue to follow and assist as needed with discharge planning / needs. Physician Credentialing Specialist: Zeina MELGAR - Discharge Planning Initial Assessment Updated by [id number]: Zeina Kapoor on 07/20/19 7:07 pm * Is the patient Alert and Oriented? Yes * How many steps to enter\exit or inside your home? * [facility]CP [facility] * [facility] * Preadmission Environment Home Alone * ADLs Independent * Equipment Walker * List name and contact numbers for known caregivers / representatives who currently or will assist patient after discharge: CRISTELA REBOLLAR - MOTHER - [phone] * Verbal permission to speak to the caregivers and representatives has been obtained from the patient. Yes * Community resources currently utilized None * Additional services required to return to the preadmission environment? No * Can the patient safely return to the preadmission environment? Yes * Has this patient been hospitalized within the prior 30 days at any hospital? No External Providers External Provider: [facility] Next Contact Date: Service Request Date: Service Type: Resolution: Reviewer: Comments: Coverage Notice Reviewer: [id number] - Zeina Kapoor Notice Issued Date-Time: 08/15/2019 18:14 Notice Type: Patient Choice Letter Notice Delivered To: Family Member Relationship to Patient: Mother Funeral Location Manager Name: CRISTELA REBOLLAR Delivery Method: HAND - Hand Delivered Chelsey Days: Prior Verbal Notification: Recipient Understood Notice: Yes Recipient Signature: Yes Med Rec Note Co-signed by Attending: Coverage Notice Comment: ANY LTACH Last DP export: 08/12/19 2:45 p Patient Name: RUBEN REBOLLAR Page 54570 at 1238 All edits/amendments must be made on the electronic document DICTATION DATE: 08/16/19 1238 SEISMIC PROSPECTING OBSERVER: ARMANDO 08/16/19 1238 RPT#: [id number] DC DATE: STATUS: ADM IN [facility] [address] [facility] [address] END OF REPORT
[2019-08-16 16:09] LABS: ACID FAST SMEAR Negative (()); AFB SPECIMEN PROCESSING Concentration (())
[2019-08-16 16:25] LABS: BILIRUBIN NEGATIVE (NEGATIVE); GLUCOSE NEGATIVE (NEGATIVE); KETONE NEGATIVE (NEGATIVE); NITRITE NEGATIVE (NEGATIVE); UROBILINOGEN NORMAL (NORMAL)
[2019-08-16 16:26] LABS: RED CELLS - URINE 0-5 /hpf (0-5); WHITE CELLS - URINE 0-5 /hpf (NEGATIVE)
[2019-08-16 16:27] LABS: BACTERIA MODERATE /hpf (NEGATIVE)
--- NOTE | 2019-08-16 17:49 | MORECARE ---
CASE MANAGEMENT DISCHARGE SUMMARY PATIENT: RUBEN REBOLLAR UNIT: [id number] ADM DATE: 07/17/19 AGE: 58 : 64 SEX: M ROOM/BED: D.2301 AUTHOR: DANY,DOC PHYSICIAN: REFERRING PHYSICIAN: ANTONY ABURTO DO DATE OF SERVICE: 08/16/19 Discharge Plan Patient Name: RUBEN ERBOLLAR Facility: [facility]:[place] : 1960 Planned Disposition: Home Anticipated Discharge Date: Discharge Date: Expected LOS: 0 Initial Reviewer: [email or web address] Initial Review Date: 07/20/2019 Generated: 08/16/19 6:49 pm Comments DCP- Discharge Planning Updated by [id number]: Zeina Kapoor on 08/16/19 4:[address] CM received a call from [place] and they are still awaiting auth. JOHNATHAN gave her patient's mother information and phone number. CM faxed updates including MAR. Elaine stated they are ready for patient just awaiting insurance. CM will continue to follow and assist as needed with discharge planning / needs. DCP- Discharge Planning Updated by [id number]: Zeina Kapoor on 08/12/19 2:[address] CM received notification from [facility] that they do not accept patient's insurance. CM then called [facility], [facility], [facility] facilities to see if they accepted insurance. They all denied his insurance. [facility] in [place] does accept insurance. CM called and spoke with patient's mother Cristela Rebollar and she agrees to [facility] for placement. JAYLA completed. CM called [place] with [facility] back and faxed referral. Delilah stated that it would probably be Thursday before he could transfer d/t awaiting auth from insurance. CM supplied [place] with ICU and CM direct number if needed over weekend. DCP- Discharge Planning Updated by [email or web address]: Karyna Bond on 08/08/19 12:[address] CM contacted LTAC surgical device sales representative, made her aware of LTAC order. Faxed required information to [phone], Phone #[phone]. DCP- Discharge Planning Updated by [id number]: Karyna Bond on 08/07/19 1:[address] CM met with the patient's mother, Cristela Rebollar, regarding patient choice for [facility] [place]. Patient choice signed and mother expressed appreciation for attempt to get into LTAC. Original given to Cristela. DCP- Discharge Planning Updated by [email or web address]: Nichol Roth on 08/05/19 4:[address] Spoke with the patient's earlier this afternoon. Discussed LTACH referral. She wants to discuss with the doctor. She is not in agreement with LTACH transfer at this time. She plans to visit in the AM. COVID 19 testing is an requirement. [facility] has short waiting list at this time. DCP- Discharge Planning Updated by [id number]: Nichol Roth on 08/05/19 11:[address] CM SPOKE WITH THE PRIMARY NURSE. ADVISED DOCUMENTATION OF NEGATIVE COVID IS REQUIRED FOR REFERRAL TO LTACH. CM DID NOT FIND DOCUMENTATION OF COVID TESTING. DCP- Discharge Planning Updated by [id number]: Nichol Roth on 08/05/19 11:[address] TC [address] [facility] REGARDING POSSIBLE REFERRAL TODAY. SPOKE W/ LATRICE. AWAITING CONSENT AND CHOICE FROM THE . WILL REQUIRE NEGATIVE COVID, CULT REPORTS, NSG NOTES X24 HRS, H/P, MAR AND PROGRESS NOTES FROM ALL PROVIDERS. PRESENTLY SHORT WAITING LIST. DCP- Discharge Planning Updated by [id number]: Nichol Roth on 08/05/19 11:[address] TC TO PATIENT'S MOTHER TO DISCUSS AND OBTAIN CONSENT / PREFERENCE FOR LTACH. TELEPHONE THE MOTHER. NO ANSWER. LEFT VOICE MAIL. AWAIT RETURN TELEPHONE CALL. DCP- Discharge Planning Updated by [email or web address]: Zeina Kapoor on 08/04/19 7:[address] CM received an order for LTACH referral. CM will need to contact patient's Mother to get JAYLA completed. CM will continue to follow and assist as needed with discharge planning / needs DCP- Discharge Planning Updated by [id number]: Zeina Kapoor on 08/02/19 4:[address] CM spoke with Dr. Ivy and she stated that patient is to ill at this time to consider transfer to LTACH facility. CM will continue to follow and assist as needed with discharge / planning. DCP- Discharge Planning Updated by [id number]: Zeina Kapoor on 07/20/19 6:[address] Patient Name: RUBEN REBOLLAR Admission Status: ER Accout number: [id number] Admission Date: 07-17-2019 : 1960 Admission Diagnosis:VENTRAL HERNIA WITHOUT OBSTRUCTION OR GANGRENE Attending: ANTONY ABURTO Current LOS: 3 Anticipated DC Date: Planned Disposition: Home Primary Insurance: [facility] MANAGED MEDICAID Discharge Planning Comments: CM met with patient at bedside after explaining CM role and obtaining verbal consent. Patient lives at home alone where he is independent with his care and plans to return there upon discharge. Patient states he lives in a camper in his mother's yard. Patient feels this would be a safe discharge. CM discussed availability / needs of home health and medical equipment. Patient denies any discharge needs at this time. Patient states he will have his family drive him home upon discharge. CM will continue to follow and assist as needed with discharge planning / needs. Park Keeper: Zeina Kapoor DCPIA - Discharge Planning Initial Assessment Updated by [email or web address]: Zeina Kapoor on 07/20/19 7:07 pm * Is the patient Alert and Oriented? Yes * How many steps to enter\exit or inside your home? * [facility]CP [facility] * [facility] * Preadmission Environment Home Alone * ADLs Independent * Equipment Walker * List name and contact numbers for known caregivers / representatives who currently or will assist patient after discharge: CRISTELA REBOLLAR - MOTHER - [phone] * Verbal permission to speak to the caregivers and representatives has been obtained from the patient. Yes * Community resources currently utilized None * Additional services required to return to the preadmission environment? No * Can the patient safely return to the preadmission environment? Yes * Has this patient been hospitalized within the prior 30 days at any hospital? No Coverage Notice Reviewer: [id number] - Zeina Kapoor Notice Issued Date-Time: 08/15/2019 18:14 Notice Type: Patient Choice Letter Notice Delivered To: Family Member Relationship to Patient: Mother Felt Coverer Name: CRISTELA REBOLLAR Delivery Method: HAND - Hand Delivered Chelsey Days: Prior Verbal Notification: Recipient Understood Notice: Yes Recipient Signature: Yes Med Rec Note Co-signed by Attending: Coverage Notice Comment: ANY LTACH Last DP export: 08/16/19 11:38 a Patient Name: RUBEN REBOLLAR Page [id number] at 1749 All edits/amendments must be made on the electronic document DICTATION DATE: 08/16/191748 WAREHOUSE PERSON: ARMANDO 08/16/191748 RPT#: [id number] DC DATE: STATUS: ADM IN [facility] [address] [place] [address] END OF REPORT
--- NOTE | 2019-08-16 23:00 | NUR ---
REASSESSMENT COMPLETE, NO NEW CHANGES AT THIS TIME. ORAL CARE PROVIDED. PT REPOSITIONED WITH PROMINENCES BRIDGED. ROOM VISIBLE FROM NURSES STATION. VSS, CPOC.
[2019-08-17] VITALS (24 sets, daily range): BP systolic 97–149; BP diastolic 57–94
--- NOTE | 2019-08-17 02:50 | NUR ---
CHG BATH AND COMPLETE LINEN CHANGE PROVIDED. CVL DRESSING CHANGED PER POLICY. IV TUBING AND TUBE FEED TUBING CHANGED. ORAL CARE PROVIDED. PROMINENCES BRIDGED. VSS, CPOC.
[2019-08-17 05:51] LABS: BASOPHILS 0.3 % (0-2); EOSINOPHILS 4.1 % (0-7); HEMATOCRIT 27.3 % (42.0-54.0); HEMOGLOBIN 8.6 g/dL (13.5-17.5); IMMATURE GRANULOCYTES 2.2 % (0-5); LYMPHOCYTES 5.2 % (15-50); MCH 25.6 pg (26.0-34.0); MCHC 31.5 g/dL (31.0-37.0); MCV 81.3 fL (80.0-100.0); MEAN PLATELET VOLUME 7.6 fL (7.4-10.4); MONOCYTES 6.2 % (2-11); PLATELET COUNT 297 10x3/uL (130-400); RBC 3.36 10x6/uL (4.20-6.10); RDW 15.3 % (11.5-14.5); WBC 11.9 10x3/uL (4.8-10.8)
[2019-08-17 06:06] LABS: ALBUMIN 2.3 g/dL (3.4-5.0); ALKALINE PHOSPHATASE 51 U/L (30-120); ALT (SGPT) 16 U/L (10-68); BILIRUBIN - TOTAL 0.42 mg/dL (0.2-1.3); CALC OSMOLALITY 266 mosm/kg (275-300); CALCIUM 7.6 mg/dL (8.5-10.1); CARBON DIOXIDE 25.2 mmol/L (21.0-32.0); CHLORIDE - SERUM 103 mmol/L (98-107); CREATININE - SERUM 0.9 mg/dL (0.6-1.3); GLUCOSE 90 mg/dL (74-106); MAGNESIUM - SERUM 1.8 mg/dL (1.8-2.4); PHOSPHOROUS 4.6 mg/dL (2.5-4.9); POTASSIUM - SERUM 3.9 mmol/L (3.5-5.1); PROTEIN - SERUM 5.1 g/dL (6.4-8.2); SODIUM 134 mmol/L (136-145); UREA NITROGEN 10 mg/dL (7-18); eGFR NON AFRICAN AMERICAN > 90 mL/min (90-120)
--- NOTE | 2019-08-17 06:40 | NUR ---
PT RESTING WITH NO S/S OF DISTRESS OR PAIN. REPOSITIONED WITH PROMINENCES BRIDGED. VSS, CPOC.
--- NOTE | 2019-08-17 07:00 | NUR ---
REC'D REPORT AND RESUMED CARE, VENT TO TRACH AND SECURED, LET SC CVL WITH FENTANYL AND D5W INFUSING, ABDOMINAL BINDER IN PALE OVER G TUBE, TF INFUSING AT 50CC/HR, KELLEY TO GRAVITY WITH CONCENTRATED DRAINAGE TO BAG, ASSESSMENT COMPLETED PER MAR FLOWSHEET. FOLLOWS SOME DIRECTIONS, WILL CONTNIUE WITH POC
--- NOTE | 2019-08-17 08:53 | NUR ---
VENT ALARMING , KICKING LEGS, OVER SIDE OF BED, AND PULLING AGAINST RESTRAINTS, VERSED 2MG VERSED GIVEN PER PRN ORDER
[2019-08-17 09:11] LABS: FUNGUS STAIN Final report (())
--- NOTE | 2019-08-17 09:34 | NUR ---
MORNING MEDS GIVEN PER APR FLOWSHEET, TF INCREASED TO 60 CC/HR
--- NOTE | 2019-08-17 10:52 | NUR ---
Nutrition follow-up: Pt with trach to vent Osmolite 1.0 dillon infusing @ 60 ml/hr with goal rate of 75 ml/hr Labs reviewed Wt: 199# RDN following.
--- NOTE | 2019-08-17 19:00 | NUR ---
SHIFT ASSESSMENT COMPLETED. PT CARE ASSUMED. MONITORS ON AND WORKING, VITALS STABLE, VENT SETTINGS NOTED. SEE FLOW SHEET FOR FURTHER DETAILS. WILL CONTINUE TO OBSERVE.
--- NOTE | 2019-08-17 21:00 | NUR ---
PT TURNED AND REPOSITIONED FOR COMFORT, MONITORS ON AND WORKING, VITALS STABLE, NO FURTHER CHANGES AT THIS TIME. WILL CONTINUE TO OBSERVE.
--- NOTE | 2019-08-17 23:00 | NUR ---
PT TURNED AND REPOSITIONED FOR COMFORT, MONITORS ON AND WORKNG, VITALS STABLE. SEE FLOW SHEET FOR FURTHER DETAILS, WILL CONTINUE TO OBSERVE.
--- NOTE | 2019-08-17 23:47 | MORECARE ---
CASE MANAGEMENT DISCHARGE SUMMARY PATIENT: RUBEN REBOLLAR UNIT: [id number] ADM DATE: 07/17/19 AGE: 58 : 64 SEX: M ROOM/BED: D.2301 AUTHOR: DANY,DOC PHYSICIAN: REFERRING PHYSICIAN: ANTONY ABURTO DO DATE OF SERVICE: 08/17/19 Discharge Plan Patient Name: RUBEN REBOLLAR Facility: [facility]:[place] : 1960 Planned Disposition: Home Anticipated Discharge Date: Discharge Date: Expected LOS: 0 Initial Reviewer: [email or web address] Initial Review Date: 07/20/2019 Generated: 08/18/19 12:47 am Comments DCP- Discharge Planning Updated by [email or web address]: Giovanna Easton on 08/17/19 10:[address] Late Entry for 16:30 CM received call from Winnie at [facility], [facility]. States they have received insurance auth and are able to admit patient tomorrow morning. Request that nursing call ambulance for transport as close to 07:00 possible on 08/18/19, due to 3hr ride to facility. States will be admitted to room 637. Needs nursing to call report to [phone] when the ambulance arrives for transport. [facility] is on the 6th floor of the [facility] ([facility] CM reported above to charge nurse, Paulina. Paulina will call and notify family DCP- Discharge Planning Updated by [id number]: Zeina Kapoor on 08/16/19 4:[address] CM received a call from [place] and they are still awaiting auth. CM gave her patient's mother information and phone number. CM faxed updates including MAR. Elaine stated they are ready for patient just awaiting insurance. CM will continue to follow and assist as needed with discharge planning / needs. DCP- Discharge Planning Updated by [email or web address]: Zeina Kapoor on 08/12/19 2:[address] CM received notification from [facility] that they do not accept patient's insurance. CM then called [facility] facilities to see if they accepted insurance. They all denied his insurance. [facility] in [place] does accept insurance. CM called and spoke with patient's mother Cristela Rebollar and she agrees [facility] for [facility]. JAYLA completed. CM called [place] with [facility] back and faxed referral. Delilah stated that it would probably be Thursday before he could transfer d/t awaiting auth from insurance. CM supplied [place] with ICU and CM direct number if needed over weekend. DCP- Discharge Planning Updated by [email or web address]: Karyna Bond on 08/08/19 12:[address] CM contacted LT[facility] metals sales representative, made her aware of LTAC order. Faxed required information to [phone], Phone #[phone]. DCP- Discharge Planning Updated by [id number]: Karyna Bond on 08/07/19 1:[address] CM met with the patient's mother, Cristela Rebollar, regarding patient choice for [facility] [place]. Patient choice signed and mother expressed appreciation for attempt to get into LTAC. Original given to Cristela. DCP- Discharge Planning Updated by [email or web address]: Nichol Roth on 08/05/19 4:[address] Spoke with the patient's earlier this afternoon. Discussed LTACH referral. She wants to discuss with the doctor. She is not in agreement with LTACH transfer at this time. She plans to visit in the AM. COVID 19 testing is an requirement. [facility] has short waiting list at this time. DCP- Discharge Planning Updated by [id number]: Nichol Roth on 08/05/19 11:[address] CM SPOKE WITH THE PRIMARY NURSE. ADVISED DOCUMENTATION OF NEGATIVE COVID IS REQUIRED FOR REFERRAL TO LTACH. CM DID NOT FIND DOCUMENTATION OF COVID TESTING. DCP- Discharge Planning Updated by [id number]: Nichol Roth on 08/05/19 11:[address] TC [address] [facility] REGARDING POSSIBLE REFERRAL TODAY. SPOKE W/ LATRICE. AWAITING CONSENT AND CHOICE FROM THE . WILL REQUIRE NEGATIVE COVID, CULT REPORTS, NSG NOTES X24 HRS, H/P, MAR AND PROGRESS NOTES FROM ALL PROVIDERS. PRESENTLY SHORT WAITING LIST. DCP- Discharge Planning Updated by [id number]: Nichol Roth on 08/05/19 11:[address] TC TO PATIENT'S MOTHER TO DISCUSS AND OBTAIN CONSENT / PREFERENCE FOR LTACH. TELEPHONE THE MOTHER. NO ANSWER. LEFT VOICE MAIL. AWAIT RETURN TELEPHONE CALL. DCP- Discharge Planning Updated by [id number]: Zeina Kapoor on 08/04/19 7:[address] CM received an order for LTACH referral. CM will need to contact patient's Mother to get JAYLA completed. CM will continue to follow and assist as needed with discharge planning / needs DCP- Discharge Planning Updated by [id number]: Zeina Kapoor on 08/02/19 4:[address] CM spoke with Dr. Ivy and she stated that patient is to ill at this time to consider transfer to LTACH facility. CM will continue to follow and assist as needed with discharge / planning. DCP- Discharge Planning Updated by [id number]: Zeina Kapoor on 07/20/19 6:[address] Patient Name: RUBEN REBOLLAR Admission Status: ER Accout number: [id number] Admission Date: 07-17-2019 : 1960 Admission Diagnosis:VENTRAL HERNIA WITHOUT OBSTRUCTION OR GANGRENE Attending: ANTONY ABURTO Current LOS: 3 Anticipated DC Date: Planned Disposition: Home Primary Insurance: [employer] MEDICAID Discharge Planning Comments: CM met with patient at bedside after explaining CM role and obtaining verbal consent. Patient lives at home alone where he is independent with his care and plans to return there upon discharge. Patient states he lives in a camper in his mother's yard. Patient feels this would be a safe discharge. CM discussed availability / needs of home health and medical equipment. Patient denies any discharge needs at this time. Patient states he will have his family drive him home upon discharge. CM will continue to follow and assist as needed with discharge planning / needs. Drill Hand: Zeina Kapoor DCPIA - Discharge Planning Initial Assessment Updated by [email or web address]: Zeina Kapoor on 07/20/19 7:07 pm * Is the patient Alert and Oriented? Yes * How many steps to enter\exit or inside your home? * [facility]CP [facility] * [facility] * Preadmission Environment Home Alone * ADLs Independent * Equipment Walker * List name and contact numbers for known caregivers / representatives who currently or will assist patient after discharge: CRISTELA REBOLLAR - MOTHER - [phone] * Verbal permission to speak to the caregivers and representatives has been obtained from the patient. Yes * Community resources currently utilized None * Additional services required to return to the preadmission environment? No * Can the patient safely return to the preadmission environment? Yes * Has this patient been hospitalized within the prior 30 days at any hospital? No Coverage Notice Reviewer: [id number] Machelle Kapoor Notice Issued Date-Time: 08/15/2019 18:14 Notice Type: Patient Choice Letter Notice Delivered To: Family Member Relationship to Patient: Mother Supervisor Kosher Dietary Service Name: CRISTELA REBOLLAR Delivery Method: HAND - Hand Delivered Chelsey Days: Prior Verbal Notification: Recipient Understood Notice: Yes Recipient Signature: Yes Med Rec Note Co-signed by Attending: Coverage Notice Comment: ANY LTACH Last DP export: 08/16/19 4:49 p Patient Name: RUBEN REBOLLAR Page [id number] at 2347 All edits/amendments must be made on the electronic document DICTATION DATE: 08/17/192346 CONFIGURATION ENGINEER: ARMANDO 08/17/192346 RPT#: [id number] DC DATE: STATUS: ADM IN [facility] [address] [place] [address] END OF REPORT
--- NOTE | 2019-08-17 23:54 | MORECARE ---
CASE MANAGEMENT DISCHARGE SUMMARY PATIENT: RUBEN REBOLLAR UNIT: [id number] ADM DATE: 07/17/19 AGE: 58 : 64 SEX: M ROOM/BED: D.2301 AUTHOR: DANY,DOC PHYSICIAN: REFERRING PHYSICIAN: ANTONY ABURTO DO DATE OF SERVICE: 08/17/19 Discharge Plan Patient Name: RUBEN REBOLLAR Facility: [facility]:[place] : 1960 Planned Disposition: Home Anticipated Discharge Date: Discharge Date: Expected LOS: 0 Initial Reviewer: [email or web address] Initial Review Date: 07/20/2019 Generated: 08/18/19 12:53 am Comments DCP- Discharge Planning Updated by [id number]: Giovanna Easton on 08/17/19 10:[address] Late Entry for 16:30 CM received call from Winnie at [facility], [facility]. States they have received insurance auth and are able to admit patient tomorrow morning. Request that nursing call ambulance for transport as close to 07:00 possible on 08/18/19, due to 3hr ride to facility. States will be admitted to room 637. Needs nursing to call report to [phone] when the ambulance arrives for transport. [facility] is on the 6th floor of the [facility] ([facility] CM reported above to charge nurse, Paulina. Paulina will call and notify family. CM will continue to follow and assist with discharge planning needs. DCP- Discharge Planning Updated by [id number]: Zeina Kapoor on 08/16/19 4:[address] CM received a call from [place] and they are still awaiting auth. CM gave her patient's mother information and phone number. CM faxed updates including JUAN F. [place] stated they are ready for patient just awaiting insurance. CM will continue to follow and assist as needed with discharge planning / needs. DCP- Discharge Planning Updated by [email or web address]: Zeina Kapoor on 08/12/19 2:[address] CM received notification from [facility] that they do not accept patient's insurance. CM then called [facility], [facility] facilities to see if they accepted insurance. They all denied his insurance. [facility] in [place] does accept insurance. CM called and spoke with patient's mother Crisetla Rebollar and she agrees to [facility] for placement. JAYLA completed. CM called [place] with [facility] back and faxed referral. Delilah stated that it would probably be Thursday before he could transfer d/t awaiting auth from insurance. CM supplied [place] with ICU and CM direct number if needed over weekend. DCP- Discharge Planning Updated by [id number]: Karyna Bond on 08/08/19 12:[address] CM contacted LTAC sales representative trainee, made her aware of LTAC order. Faxed required information to [phone], Phone #[phone]. DCP- Discharge Planning Updated by [email or web address]: Karyna Bond on 08/07/19 1:[address] CM met with the patient's mother, Cristela Rebollar, regarding patient choice for [facility], here in . Patient choice signed and mother expressed appreciation for attempt to get into LTAC. Original given to Cristela. DCP- Discharge Planning Updated by [id number]: Nichol Roth on 08/05/19 4:[address] Spoke with the patient's earlier this afternoon. Discussed LTACH referral. She wants to discuss with the doctor. She is not in agreement with LTACH transfer at this time. She plans to visit in the AM. COVID 19 testing is an requirement. [facility] has short waiting list at this time. DCP- Discharge Planning Updated by [email or web address]: Nichol Roth on 08/05/19 11:[address] CM SPOKE WITH THE PRIMARY NURSE. ADVISED DOCUMENTATION OF NEGATIVE COVID IS REQUIRED FOR REFERRAL TO LTACH. CM DID NOT FIND DOCUMENTATION OF COVID TESTING. DCP- Discharge Planning Updated by [email or web address]: Nichol Roth on 08/05/19 11:[address] TC TO [facility] REGARDING POSSIBLE REFERRAL TODAY. SPOKE W/ [facility]. AWAITING CONSENT AND CHOICE FROM THE . WILL REQUIRE NEGATIVE COVID, CULT REPORTS, NSG NOTES X24 HRS, H/P, MAR AND PROGRESS NOTES FROM ALL PROVIDERS. PRESENTLY SHORT WAITING LIST. DCP- Discharge Planning Updated by [id number]: Nichol Roth on 08/05/19 11:[address] TC TO PATIENT'S MOTHER TO DISCUSS AND OBTAIN CONSENT / PREFERENCE FOR LTACH. TELEPHONE THE MOTHER. NO ANSWER. LEFT VOICE MAIL. AWAIT RETURN TELEPHONE CALL. DCP- Discharge Planning Updated by [id number]: Zeina Kapoor on 08/04/19 7:[address] CM received an order for LTACH referral. CM will need to contact patient's Mother to get JAYLA completed. CM will continue to follow and assist as needed with discharge planning / needs DCP- Discharge Planning Updated by [id number]: Zeina Kapoor on 08/02/19 4:[address] CM spoke with Dr. Ivy and she stated that patient is to ill at this time to consider transfer to LTACH facility. CM will continue to follow and assist as needed with discharge / planning. DCP- Discharge Planning Updated by [id number]: Zeina Kapoor on 07/20/19 6:[address] Patient Name: RUBEN REBOLLAR Admission Status: ER Accout number: [id number] Admission Date: 07-17-2019 : 1960 Admission Diagnosis:VENTRAL HERNIA WITHOUT OBSTRUCTION OR GANGRENE Attending: ANTONY ABURTO Current LOS: 3 Anticipated DC Date: Planned Disposition: Home Primary Insurance: [employer] MEDICAID Discharge Planning Comments: CM met with patient at bedside after explaining CM role and obtaining verbal consent. Patient lives at home alone where he is independent with his care and plans to return there upon discharge. Patient states he lives in a camper in his mother's yard. Patient feels this would be a safe discharge. CM discussed availability / needs of home health and medical equipment. Patient denies any discharge needs at this time. Patient states he will have his family drive him home upon discharge. CM will continue to follow and assist as needed with discharge planning / needs. Field Tax Auditor: Zeina Kapoor DCPIA - Discharge Planning Initial Assessment Updated by [id number]: Zeina Kapoor on 07/20/19 7:07 pm * Is the patient Alert and Oriented? Yes * How many steps to enter\exit or inside your home? * PCP [facility] * [facility] * Preadmission Environment Home Alone * ADLs Independent * Equipment Walker * List name and contact numbers for known caregivers / representatives who currently or will assist patient after discharge: CRISTELA REBOLLAR - MOTHER - [phone] * Verbal permission to speak to the caregivers and representatives has been obtained from the patient. Yes * Community resources currently utilized None * Additional services required to return to the preadmission environment? No * Can the patient safely return to the preadmission environment? Yes * Has this patient been hospitalized within the prior 30 days at any hospital? No Coverage Notice Reviewer: [id number] Machelle Kapoor Notice Issued Date-Time: 08/15/2019 18:14 Notice Type: Patient Choice Letter Notice Delivered To: Family Member Relationship to Patient: Mother Vascular Sonographer Name: CRISTELA REBOLLAR Delivery Method: HAND - Hand Delivered Chelsey Days: Prior Verbal Notification: Recipient Understood Notice: Yes Recipient Signature: Yes Med Rec Note Co-signed by Attending: Coverage Notice Comment: ANY LTACH Last DP export: 08/17/19 10:47 p Patient Name: RUBEN REBOLLAR Page 66819 at 2354 All edits/amendments must be made on the electronic document DICTATION DATE: 08/17/192352 SUPERVISOR EDGING: ARMANDO 08/17/192352 RPT#: [id number] DC DATE: STATUS: ADM IN [facility] [address] [place] [address] END OF REPORT
[2019-08-18] VITALS: BP 129/80
[2019-08-18 01:00] VITALS: BP 127/80
--- NOTE | 2019-08-18 01:00 | NUR ---
PT CLEANED FROM LARGE BM, MONITORS ON AND WORKING, VITALS STABLE, WILL CONTINUE TO OBSERVE.
[2019-08-18 02:00] VITALS: BP 125/74
[2019-08-18 03:00] VITALS: BP 120/76
--- NOTE | 2019-08-18 03:00 | NUR ---
CHG BATH AND LINEN CHANGE COMPLETED AT THIS TIME. SEE FLOW SHEET FOR FURTHER DETAILS. WILL CONTINUE TO OBSERE.
--- NOTE | 2019-08-18 05:00 | NUR ---
PT CLEANED FROM LARGE BM, CHG AND LINEN CHANGE COMPLETED AT THIS TIME, WILL CONTINUE TO OBSERVE.
[2019-08-18 06:29] LABS: MAGNESIUM - SERUM 1.6 mg/dL (1.8-2.4); PHOSPHOROUS 4.1 mg/dL (2.5-4.9)
[2019-08-18 07:00] VITALS: BP 146/89
--- NOTE | 2019-08-18 07:00 | NUR ---
REPORT RECEIVED. ASSESSMNT COMPLETE PER FLOW SHEET. VSS. PT RESTING COMFORTABLY WILL CONTINUE TO MONITOR
--- NOTE | 2019-08-18 07:52 | MORECARE ---
CASE MANAGEMENT DISCHARGE SUMMARY PATIENT: RUBEN REBOLLAR UNIT: [id number] ADM DATE: 07/17/19 AGE: 58 : 64 SEX: M ROOM/BED: D.2301 AUTHOR: DANY,DOC PHYSICIAN: REFERRING PHYSICIAN: ANTONY ABURTO DO DATE OF SERVICE: 08/18/19 Discharge Plan Patient Name: RUBEN REBOLLAR Facility: [facility]:[place] : 1960 Planned Disposition: Home Anticipated Discharge Date: Discharge Date: Expected LOS: 0 Initial Reviewer: [email or web address] Initial Review Date: 07/20/2019 Generated: 08/18/19 8:51 am Comments DCP- Discharge Planning Updated by [email or web address]: Giovanna Easton on 08/18/19 6:[address] CM called and spoke with patient's mother, Cristela Rebollar to make sure she was aware that patient was going to discharge to [facility] in [place] today. Mrs. Rebollar stated yes she was told by the nurse yesterday that he had been accepted and would go to [facility] today. Mrs. Rebollar expressed gratitude and satisfaction with the care the patient has received from our hospital. CM will continue to follow and assist with discharge planning as needed. DCP- Discharge Planning Updated by [id number]: Giovanna Easton on 08/17/19 10:[address] Late Entry for 16:30 CM received call from Winnie at [facility], [facility]. States they have received insurance auth and are able to admit patient tomorrow morning. Request that nursing call ambulance for transport as close to 07:00 possible on 08/18/19, due to 3hr ride to facility. States will be admitted to room 637. Needs nursing to call report to [phone] when the ambulance arrives for transport. [facility] is on the 6th floor of the [facility] ([facility]). CM reported above to charge nurse, Paulina. Paulina will call and notify family. CM will continue to follow and assist with discharge planning needs. DCP- Discharge Planning Updated by [email or web address]: Zeina Kapoor on 08/16/19 4:[address] CM received a call from [place] and they are still awaiting auth. CM gave her patient's mother information and phone number. CM faxed updates including MAR. [place] stated they are ready for patient just awaiting insurance. CM will continue to follow and assist as needed with discharge planning / needs. DCP- Discharge Planning Updated by [id number]: Zeina Jainr on 08/12/19 2:[address] CM received notification from [facility] that they do not accept patient's insurance. CM then called [facility], [facility] facilities to see if they accepted insurance. They all denied his insurance. [facility] in [place] does accept insurance. CM called and spoke with patient's mother Cristela Rebollar and she agrees to [facility] for placement. JAYLA completed. CM called [place] with [facility] back and faxed referral. Delilah stated that it would probably be Thursday before he could transfer d/t awaiting auth from insurance. CM supplied [place] with ICU and CM direct number if needed over weekend. DCP- Discharge Planning Updated by [id number]: Karyna Bond on 08/08/19 12:[address] CM contacted LTAC passenger relations representative, made her aware of LTAC order. Faxed required information to [phone], Phone #[phone]. DCP- Discharge Planning Updated by [id number]: Karyna Bond on 08/07/19 1:[address] CM met with the patient's mother, Cristela Rebollar, regarding patient choice for [facility], here in . Patient choice signed and mother expressed appreciation for attempt to get into LTAC. Original given to Cristela. DCP- Discharge Planning Updated by [email or web address]: Nichol Roth on 08/05/19 4:[address] Spoke with the patient's earlier this afternoon. Discussed LTACH referral. She wants to discuss with the doctor. She is not in agreement with LTACH transfer at this time. She plans to visit in the AM. COVID 19 testing is an requirement. [facility] has short waiting list at this time. DCP- Discharge Planning Updated by [id number]: Nichol Roth on 08/05/19 11:[address] CM SPOKE WITH THE PRIMARY NURSE. ADVISED DOCUMENTATION OF NEGATIVE COVID IS REQUIRED FOR REFERRAL TO LTACH. CM DID NOT FIND DOCUMENTATION OF COVID TESTING. DCP- Discharge Planning Updated by [email or web address]: Nichol Roth on 08/05/19 11:[address] TC TO [facility] REGARDING POSSIBLE REFERRAL TODAY. SPOKE W/ [facility]. AWAITING CONSENT AND CHOICE FROM THE . WILL REQUIRE NEGATIVE COVID, CULT REPORTS, NSG NOTES X24 HRS, H/P, MAR AND PROGRESS NOTES FROM ALL PROVIDERS. PRESENTLY SHORT WAITING LIST. DCP- Discharge Planning Updated by [id number]: Nichol Roth on 08/05/19 11:[address] TC TO PATIENT'S MOTHER TO DISCUSS AND OBTAIN CONSENT / PREFERENCE FOR LTACH. TELEPHONE THE MOTHER. NO ANSWER. LEFT VOICE MAIL. AWAIT RETURN TELEPHONE CALL. DCP- Discharge Planning Updated by [id number]: Zeina Kapoor on 08/04/19 7:[address] CM received an order for LTACH referral. CM will need to contact patient's Mother to get JAYLA completed. CM will continue to follow and assist as needed with discharge planning / needs DCP- Discharge Planning Updated by [email or web address]: Zeina Kapoor on 08/02/19 4:[address] CM spoke with Dr. Ivy and she stated that patient is to ill at this time to consider transfer to LTACH facility. CM will continue to follow and assist as needed with discharge / planning. DCP- Discharge Planning Updated by [email or web address]: Zeina Kapoor on 07/20/19 6:[address] Patient Name: RUBEN REBOLLAR Admission Status: ER Accout number: [id number] Admission Date: 07-17-2019 : 1960 Admission Diagnosis:VENTRAL HERNIA WITHOUT OBSTRUCTION OR GANGRENE Attending: ANTONY ABURTO Current LOS: 3 Anticipated DC Date: Planned Disposition: Home Primary Insurance: [employer] Discharge Planning Comments: CM met with patient at bedside after explaining CM role and obtaining verbal consent. Patient lives at home alone where he is independent with his care and plans to return there upon discharge. Patient states he lives in a camper in his mother's yard. Patient feels this would be a safe discharge. CM discussed availability / needs of home health and medical equipment. Patient denies any discharge needs at this time. Patient states he will have his family drive him home upon discharge. CM will continue to follow and assist as needed with discharge planning / needs. Sealer Sander: Zeina Kapoor DCPIA - Discharge Planning Initial Assessment Updated by [id number]: Zeina Kapoor on 07/20/19 7:07 pm * Is the patient Alert and Oriented? Yes * How many steps to enter\exit or inside your home? * PCP [facility] * [facility] * Preadmission Environment Home Alone * ADLs Independent * Equipment Walker * List name and contact numbers for known caregivers / representatives who currently or will assist patient after discharge: CRISTELA REBOLLAR - MOTHER - [phone] * Verbal permission to speak to the caregivers and representatives has been obtained from the patient. Yes * Community resources currently utilized None * Additional services required to return to the preadmission environment? No * Can the patient safely return to the preadmission environment? Yes * Has this patient been hospitalized within the prior 30 days at any hospital? No Coverage Notice Reviewer: [id number] - Zeina Kapoor Notice Issued Date-Time: 08/15/2019 18:14 Notice Type: Patient Choice Letter Notice Delivered To: Family Member Relationship to Patient: Mother Procurement Officer Name: CRISTELA REBOLLAR Delivery Method: HAND - Hand Delivered Chelsey Days: Prior Verbal Notification: Recipient Understood Notice: Yes Recipient Signature: Yes Med Rec Note Co-signed by Attending: Coverage Notice Comment: ANY LTACH Last DP export: 08/17/19 10:54 p Patient Name: RUBEN REBOLLAR Page 08639 at 0752 All edits/amendments must be made on the electronic document DICTATION DATE: 08/18/19750 MONTESSORI TODDLER TEACHER: ARMANDO 08/18/19 075 RPT#: [id number] DC DATE: STATUS: ADM IN [facility] [address] [place] [address] END OF REPORT
[2019-08-18 08:00] VITALS: BP 159/84
--- NOTE | 2019-08-18 08:10 | NUR ---
FAMILY AND DR FOX AT BEDSIDE. GIVEN UDPATE. CONSENTS SIGNED FOR TRANSFER.
--- NOTE | 2019-08-18 08:40 | NUR ---
REPORT CALLED TO ALINA AT [facility]. NO NEW CHANGES. VSS. AMBULANCE CALLED GIVEN REPORT. STATED WOULD BE 1 HR BEFORE TRANPORT.
--- NOTE | 2019-08-19 09:11 | MORECARE ---
CASE MANAGEMENT DISCHARGE SUMMARY PATIENT: RUBEN REBOLLAR UNIT: [id number] ADM DATE: 07/17/19 AGE: 58 : 64 SEX: M ROOM/BED: D.2301 AUTHOR: DANY,DOC PHYSICIAN: REFERRING PHYSICIAN: ANTONY ABURTO DO DATE OF SERVICE: 08/19/19 Discharge Plan Patient Name: RUBEN REBOLLAR Facility: [facility]:[place] : 1960 Planned Disposition: Home Anticipated Discharge Date: Discharge Date: 08/18/2019 Expected LOS: 0 Initial Reviewer: [email or web address] Initial Review Date: 07/20/2019 Generated: 08/19/19 10:11 am Comments DCP- Discharge Planning Updated by [id number]: Giovanna Easton on 08/18/19 6:[address] CM called and spoke with patient's mother, Cristela Rebollar to make sure she was aware that patient was going to discharge to [facility] in [place] today. Mrs. Rebollar stated yes she was told by the nurse yesterday that he had been accepted and would go to [facility] today. Mrs. Rebollar expressed gratitude and satisfaction with the care the patient has received from our hospital. CM will continue to follow and assist with discharge planning as needed. DCP- Discharge Planning Updated by [id number]: Giovanna Easton on 08/17/19 10:[address] Late Entry for 16:30 CM received call from Winnie at [facility], [facility]. States they have received insurance auth and are able to admit patient tomorrow morning. Request that nursing call ambulance for transport as close to 07:00 possible on 08/18/19, due to 3hr ride to facility. States will be admitted to room 637. Needs nursing to call report to [phone] when the ambulance arrives for transport. [facility] is on the 6th floor of the [facility] ([facility]). CM reported above to charge nurse, Paulina. Paulina will call and notify family. CM will continue to follow and assist with discharge planning needs. DCP- Discharge Planning Updated by [email or web address]: Zeina Kapoor on 08/16/19 4:[address] CM received a call from [place] and they are still awaiting auth. CM gave her patient's mother information and phone number. CM faxed updates including MAR. [place] stated they are ready for patient just awaiting insurance. CM will continue to follow and assist as needed with discharge planning / needs. DCP- Discharge Planning Updated by [id number]: Zeina Kapoor on 08/12/19 2:[address] CM received notification from [facility] that they do not accept patient's insurance. CM then called [facility], [facility], [facility] facilities to see if they accepted insurance. They all denied his insurance. [facility] in [place] does accept insurance. CM called and spoke with patient's mother Cristela Rebollar and she agrees to [facility] for placement. JAYLA completed. CM called [place] with [facility] back and faxed referral. Delilah stated that it would probably be Thursday before he could transfer d/t awaiting auth from insurance. CM supplied [place] with ICU and CM direct number if needed over weekend. DCP- Discharge Planning Updated by [id number]: Karyna Bond on 08/08/19 12:[address] CM contacted LTAC representative government relations, made her aware of LTAC order. Faxed required information to [phone], Phone #[phone]. DCP- Discharge Planning Updated by [id number]: Karyna Bond on 08/07/19 1:[address] CM met with the patient's mother, Cristela Rebollar, regarding patient choice for [facility], here in . Patient choice signed and mother expressed appreciation for attempt to get into LTAC. Original given to Cristela. DCP- Discharge Planning Updated by [id number]: Nichol Roth on 08/05/19 4:[address] Spoke with the patient's earlier this afternoon. Discussed LTACH referral. She wants to discuss with the doctor. She is not in agreement with LTACH transfer at this time. She plans to visit in the AM. COVID 19 testing is an requirement. [facility] has short waiting list at this time. DCP- Discharge Planning Updated by [email or web address]: Nichol Roth on 08/05/19 11:[address] CM SPOKE WITH THE PRIMARY NURSE. ADVISED DOCUMENTATION OF NEGATIVE COVID IS REQUIRED FOR REFERRAL TO LTACH. CM DID NOT FIND DOCUMENTATION OF COVID TESTING. DCP- Discharge Planning Updated by [id number]: Nichol Roth on 08/05/19 11:[address] TC TO [facility] REGARDING POSSIBLE REFERRAL TODAY. SPOKE W/ [place]. AWAITING CONSENT AND CHOICE FROM THE . WILL REQUIRE NEGATIVE COVID, CULT REPORTS, NSG NOTES X24 HRS, H/P, MAR AND PROGRESS NOTES FROM ALL PROVIDERS. PRESENTLY SHORT WAITING LIST. DCP- Discharge Planning Updated by [id number]: Nichol Roth on 08/05/19 11:[address] TC TO PATIENT'S MOTHER TO DISCUSS AND OBTAIN CONSENT / PREFERENCE FOR LTACH. TELEPHONE THE MOTHER. NO ANSWER. LEFT VOICE MAIL. AWAIT RETURN TELEPHONE CALL. DCP- Discharge Planning Updated by [email or web address]: Zeina Kapoor on 08/04/19 7:[address] CM received an order for LTACH referral. CM will need to contact patient's Mother to get JAYLA completed. CM will continue to follow and assist as needed with discharge planning / needs DCP- Discharge Planning Updated by [email or web address]: Zeina Kapoor on 08/02/19 4:[address] CM spoke with Dr. Ivy and she stated that patient is to ill at this time to consider transfer to LTACH facility. CM will continue to follow and assist as needed with discharge / planning. DCP- Discharge Planning Updated by [email or web address]: Zeina Kapoor on 07/20/19 6:[address] Patient Name: RUBEN REBOLLAR Admission Status: ER Accout number: [id number] Admission Date: 07-17-2019 : 1960 Admission Diagnosis:VENTRAL HERNIA WITHOUT OBSTRUCTION OR GANGRENE Attending: ANTONY ABURTO Current LOS: 3 Anticipated DC Date: Planned Disposition: Home Primary Insurance: [employer] Discharge Planning Comments: CM met with patient at bedside after explaining CM role and obtaining verbal consent. Patient lives at home alone where he is independent with his care and plans to return there upon discharge. Patient states he lives in a camper in his mother's yard. Patient feels this would be a safe discharge. CM discussed availability / needs of home health and medical equipment. Patient denies any discharge needs at this time. Patient states he will have his family drive him home upon discharge. CM will continue to follow and assist as needed with discharge planning / needs. Fork Assembler: Zeina Kapoor DCPIA - Discharge Planning Initial Assessment Updated by [id number]: Zeina Kapoor on 07/20/19 7:07 pm * Is the patient Alert and Oriented? Yes * How many steps to enter\exit or inside your home? * PCP [facility] * [facility] * Preadmission Environment Home Alone * ADLs Independent * Equipment Walker * List name and contact numbers for known caregivers / representatives who currently or will assist patient after discharge: CRISTELA REBOLLAR - MOTHER - [phone] * Verbal permission to speak to the caregivers and representatives has been obtained from the patient. Yes * Community resources currently utilized None * Additional services required to return to the preadmission environment? No * Can the patient safely return to the preadmission environment? Yes * Has this patient been hospitalized within the prior 30 days at any hospital? No Coverage Notice Reviewer: [id number] - Zeina Kapoor Notice Issued Date-Time: 08/15/2019 18:14 Notice Type: Patient Choice Letter Notice Delivered To: Family Member Relationship to Patient: Mother Doctor Of Nurse Anesthesia Name: CRISTELA REBOLLAR Delivery Method: HAND - Hand Delivered Cehlsey Days: Prior Verbal Notification: Recipient Understood Notice: Yes Recipient Signature: Yes Med Rec Note Co-signed by Attending: Coverage Notice Comment: ANY LTACH Last DP export: 08/18/19 6:52 a Patient Name: RUBEN REBOLLAR Page [id number] at 0911 All edits/amendments must be made on the electronic document DICTATION DATE: 08/19/19910 DISPUTE COORDINATOR: ARMANDO 08/19/19910 RPT#: [id number] DC DATE:08/18/19 STATUS: DIS IN [facility] [address] [place] [address] END OF REPORT
== END 2019-08-18 10:55 | DRG 3 ==
LOC: D.ER 16:03 → D.MS 19:03 → D.ICU 19:03 → D.MS 07-20 09:51 → D.ICU 07-23 19:54
PROVIDERS: Emergency Medicine; Family Medicine; Internal Medicine; Internal Medicine Nephrology; Internal Medicine Pulmonary Disease; Surgery; ADMIT Family Medicine; ATTEND Family Medicine
PROC: 0DT84ZZ Resection of Small Intestine, Percutaneous Endoscopic Approach (ICD-10-PCS; principal; 2019-07-18 12:15)
PROC: 5A1955Z Respiratory Ventilation, Greater than 96 Consecutive Hours (ICD-10-PCS; 2019-07-24)
PROC: 06HY33Z Insertion of Infusion Device into Lower Vein, Percutaneous Approach (ICD-10-PCS; 2019-07-24)
PROC: 04HY32Z Insertion of Monitoring Device into Lower Artery, Percutaneous Approach (ICD-10-PCS; 2019-07-24)
PROC: 4A133B1 Monitoring of Arterial Pressure, Peripheral, Percutaneous Approach (ICD-10-PCS; 2019-07-24)
PROC: 4A133J1 Monitoring of Arterial Pulse, Peripheral, Percutaneous Approach (ICD-10-PCS; 2019-07-24)
PROC: 0B9F8ZX Drainage of Right Lower Lung Lobe, Via Natural or Artificial Opening Endoscopic, Diagnostic (ICD-10-PCS; 2019-07-24)
PROC: 0BH17EZ Insertion of Endotracheal Airway into Trachea, Via Natural or Artificial Opening (ICD-10-PCS; 2019-07-24)
PROC: 0B113F4 Bypass Trachea to Cutaneous with Tracheostomy Device, Percutaneous Approach (ICD-10-PCS; 2019-07-29)
PROC: 05H633Z Insertion of Infusion Device into Left Subclavian Vein, Percutaneous Approach (ICD-10-PCS; 2019-07-29)
PROC: 0DH63UZ Insertion of Feeding Device into Stomach, Percutaneous Approach (ICD-10-PCS; 2019-08-03)
PROC: 0B9B8ZZ Drainage of Left Lower Lobe Bronchus, Via Natural or Artificial Opening Endoscopic (ICD-10-PCS; 2019-08-13)
PROC: 0B968ZZ Drainage of Right Lower Lobe Bronchus, Via Natural or Artificial Opening Endoscopic (ICD-10-PCS; 2019-08-13)
PROC: 05HY33Z Insertion of Infusion Device into Upper Vein, Percutaneous Approach (ICD-10-PCS; 2019-08-17)
DX: K43.6 Other and unspecified ventral hernia with obstruction, without gangrene (principal); K63.1 Perforation of intestine (nontraumatic); K65.9 Peritonitis, unspecified; K65.1 Peritoneal abscess; R65.21 Severe sepsis with septic shock; N17.0 Acute kidney failure with tubular necrosis; J69.0 Pneumonitis due to inhalation of food and vomit; J15.6 Pneumonia due to other Gram-negative bacteria; J96.01 Acute respiratory failure with hypoxia; R18.8 Other ascites; E87.1 Hypo-osmolality and hyponatremia; E87.2 Acidosis; Z66 Do not resuscitate; K74.60 Unspecified cirrhosis of liver; I10 Essential (primary) hypertension; B19.20 Unspecified viral hepatitis C without hepatic coma; D64.9 Anemia, unspecified